=== PATIENT | female | born 1960 | race Caucasian/White ===

== ENCOUNTER 2020-04-13 12:48 | Outpatient (CLI) | payer SELFPAY ==
--- NOTE | 2020-04-13 12:54 | CT_ITS ---
WS: [id number] LDCT LUNG CANCER SCREENING TECHNIQUE: Noncontrast CT of the chest with coronal and sagittal reformatted images. CLINICAL INFORMATION: H/O TOBACCO USE COMPARISON: None. DLP: 48.91 mGy.cm DIvol: 1.[address] scans at [facility] use at least one of these dose optimization techniques: automat ed exposure control; mA and/or kV adjustment per patient size (includes targeted exams where dose is matched to clinical indication); or iterative reconstruction. FINDINGS: No acute pulmonary infiltrates. No consolidation or pleural fluid. A few calcified granulomas. No lance picious pulmonary parenchymal opacities. No mediastinal or hilar lymphadenopathy. Calcified subcarina l and left hilar lymph nodes. Adrenal glands are normal. Splenic granulomas. CT/CT lung screening [id number] IMPRESSION: LUNG-RADS: 1-Negative FOLLOW UP: 12 Month: Continue annual screening with LDCT
== END 2020-04-13 12:49 | disposition home or self-care (01) ==
LOC: CT 12:49
PROVIDERS: PCP Family Medicine; Visit Provider Internal Medicine Pulmonary Disease
DX: Z12.2 Encounter for screening for malignant neoplasm of respiratory organs (principal); Z87.891 Personal history of nicotine dependence
CPT/HCPCS: G0297

== ENCOUNTER 2021-02-26 08:27 | Outpatient (CLI) | payer MEDICAID, SELFPAY ==
--- NOTE | 2021-02-26 08:45 | USCV_ITS ---
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
== END 2021-02-26 08:28 | disposition home or self-care (01) ==
LOC: US 08:31
PROVIDERS: PCP Family Medicine; Visit Provider Internal Medicine Cardiovascular Disease
DX: I77.9 Disorder of arteries and arterioles, unspecified (principal); I73.9 Peripheral vascular disease, unspecified
CPT/HCPCS: 93923

== ENCOUNTER 2021-03-01 14:23 | Outpatient (CLI) | payer MEDICAID, SELFPAY ==
--- NOTE | 2021-03-01 14:44 | XR_ITS ---
WS: [id number] KUB, AP view, 03/01/2021 Clinical Data: LEFT FLANK PAIN Comparison: None. Findings: No abnormal intraabdominal masses are seen. There is no dilatated small bowel or evidence of obstruct ion. There are splenic granulomas. Colon gas and fecal material obscure detail over both kidneys. There ar e phleboliths in the true pelvis. XR/XR KUB [id number] Impression: Negative KUB.
== END 2021-03-01 14:24 | disposition home or self-care (01) ==
LOC: RAD 14:30
PROVIDERS: PCP Nurse Practitioner Family; Visit Provider Nurse Practitioner Family
DX: R10.9 Unspecified abdominal pain (principal)
CPT/HCPCS: 74018

== ENCOUNTER 2021-03-27 15:21 | Emergency (ER) | payer MEDICAID, SELFPAY ==
[2021-03-27 15:48] VITALS: BP 132/80; PULSE 98; RESP 15; TEMP 37.4; O2SAT 95; BMI 29.2
--- NOTE | 2021-03-27 18:12 | XRR_ITS ---
PROCEDURE INFORMATION: Exam: XR Chest Exam date and time: 03/27/2021 6:12 PM Age: 60 years old Clinical indication: Cough and fever; Additional info: Cough, fever, body aches TECHNIQUE: Imaging protocol: XR of the chest. Views: 1 view. COMPARISON: CR Chest 1 [place] [id number] 01/11/2017 3:21 PM FINDINGS: Lungs: Hazy left basilar opacity which could be secondary to atelectasis or pneumonia. Pleural spaces: Unremarkable. No pleural effusion. No pneumothorax. Heart/Mediastinum: Unremarkable. No cardiomegaly. Bones/joints: Unremarkable. XR/XR chest 1V portable [id number] IMPRESSION: Hazy left basilar opacity concerning for pneumonia.
--- NOTE | 2021-03-27 18:47 | W.ED.COVID ---
HPI - COVID General: Chief Complaint: COVID symptoms Stated Complaint: covid symptoms Time Seen by Provider: 03/27/21 17:20 Source: patient Mode of arrival: EMS Limitations: no limitations Triage information: Has fever, cough or shortness of breath. Exposure to COVID + person last 14 days History of Present Illness: HPI Narrative: This 60-year-old female presents to the emergency department with 2-week history of Covid symptoms. She has a history of coronary artery disease and hypertension. She had a Covid exposure prior to her symptoms starting. She has had a fever, body aches, generalized weakness and malaise. She is here to be evaluated. MD complaint: reported COVID exposure and has COVID symptoms Prior covid testing: no COVID 19 common symptoms: positive fever(s), chills, cough, productive cough, dyspnea, fatigue, body aches, nasal congestion and chest tightness; negative headache(s), loss of sense of smell and/or taste, throat pain, nausea, vomiting or diarrhea COVID 19 other sytmptoms: positive chest pressure; negative pleuritic pain, requiring oxygen, requiring more oxygen, respiratory distress, cyanosis, lethargy, confusion or new neurological complaints Onset (ago): week(s) (2) Severity: moderate Pertinent comorbid conditions: hypertension and heart disease Treatment prior to arrival: none COVID Results: SARS-CoV-2 Antigen (Rapid) Positive (Negative) H 03/27/21 19:20 03/27/21 Nasal/Oral Coronavirus 2019 PCR Pending 03/27/21 19:20 03/27/21 Review of Systems General: Reports: 10 or more systems reviewed and unremarkable except in HPI and below Const: Reports: fever(s), chills, body aches and fatigue ENMT: Reports: nasal congestion; Denies: throat pain Resp: Reports: dyspnea and productive cough GI: Denies: nausea, vomiting or diarrhea Neuro: Denies: headache(s) or confusion PFS ED PFSH: Medical History (Updated 03/27/21 @ 21:01 by Kavitha Yun MD, [facility] [place]) CAD (coronary artery disease) Diastolic heart failure Fibromyalgia HTN (hypertension) Hyperlipidemia Shortness of breath Family History (Reviewed 03/27/21 @ 18:54 by Kavitha Yun MD, [facility] [place]) Mother Cancer Other Heart disease Hodgkins disease Hypertension Social History (Reviewed 03/27/21 @ 18:54 by Kavitha Yun MD, [facility] [place]) Smoking and tobacco status: former smoker Quit status (tobacco): has quit using tobacco Year quit tobacco: 2005 - 2PPD x 30 Years Second hand smoke exposure: No Alcohol intake: never Lives independently: Yes Household members: significant other Marital status: Life Partner Current occupational status: unemployed History of recent travel: No Current gender identity: Female Physical Exam Const: COMMON NORMALS: no acute distress, average body habitus, patient oriented x3, no limitations, healthy appearing, alert and well nourished HENMT: COMMON NORMALS: normocephalic, atraumatic and moist oral mucous membranes HEAD & SCALP: normocephalic and atraumatic Neck/C-Spine: COMMON NORMALS: no meningeal signs and no JVD Chest: COMMONS NORMALS: normal inspection of the chest and normal palpation of entire chest wall Resp: COMMON NORMALS: normal respiratory effort, No retractions, No use of accessory muscles, clear to auscultation bilaterally and percussion normal AUSCULTATION: clear to auscultation bilaterally PERCUSSION: percussion normal Cardio: COMMON NORMALS: no JVD, regular rate, regular rhythm, S1 normal heart sound present, S2 normal heart sound present, No gallops present (Cardio), No clicks present (Cardio), No murmurs present (Cardio), No rub (Cardio) and Peripheral pulses 2+ throughout RATE: regular rate RHYTHM: regular rhythm HEART SOUNDS: S1 normal heart sound present and S2 normal heart sound present PERIPHERAL PULSES: Peripheral pulses 2+ throughout GI: COMMON NORMALS: Normal to inspection, nondistended, normoactive bowel sounds present, Soft to palpation, non-tender, No hepatosplenomegaly present, no masses and no bruits PALPATION: Yes Soft to palpation and Yes No hepatosplenomegaly present Extremity: COMMON NORMALS: normal to inspection, full ROM, capillary refill normal, no calf tenderness and no pedal edema Neuro: COMMON NORMALS: patient oriented x3 SENSORIUM/ORIENTATION: Yes alert MENINGEAL SIGNS: Yes no meningeal signs Skin: COMMON NORMALS: no rashes or lesions noted, no wounds, turgor normal, no jaundice, no petechiae and no mottling GENERAL SKIN EXAM: no rashes or lesions noted and turgor normal Course Reevaluation(s): Reevaluation #1: Discussed her lab and imaging findings with her. She tested positive for COVID-19. Chest x-ray also shows Covid pneumonia. She is not hypoxic and not requiring oxygen. Because her symptoms has been going on for about 2 weeks she does not meet criteria for monoclonal antibody infusion. She is given a dose of dexamethasone in the emergency department and discharged home with the same. She is to follow-up with her primary care provider. She voiced understanding and is in agreement with the plan. Time: 21:00 Vital Signs: Vital signs: Vital Signs Temperature 99.3 F 03/27/21 15:48 Pulse Rate 98 03/27/21 15:48 Respiratory Rate 15 03/27/21 15:48 Blood Pressure 132/80 03/27/21 15:48 Pulse Oximetry 95 03/27/21 15:48 MDM - COVID MDM Narrative: Medical decision making narrative: 60-year-old female who presents to the emergency department with a 2-week history of Covid symptoms. She had a Covid exposure. In the emergency department she tested positive for Covid. She is not hypoxic and not requiring oxygen. She is however out of the window for monoclonal antibody infusion. She is discharged home with a prescription for steroid and antibiotics. Medical Records: Attestation: I reviewed the patient's medical records. Lab Data: Attestation: I reviewed the patient's lab results. Labs: Lab Results 03/27/21 03/27/21 03/27/21 Range/Units 19:20 19:35 19:35 WBC 5.2 (4.0-10.0) 10^3/ uL RBC 4.46 (4.1-5.3) 10^6/u L Hgb 13.9 (11.5-15.3) g/dL Hct 42.6 (37.0-47.0) % MCV 95.5 (81-99) fL MCH 31.2 (28.0-34.0) pg MCHC 32.6 (30.0-36.0) g/dL RDW 12.9 (12.1-15.1) % Plt Count 172 (130-400) 10^3/c mm MPV 11.5 H (7.4-10.4) fL Neut % (Auto) 61.1 % Lymph % (Auto) 30.4 % Harney % (Auto) 7.5 % Eos % (Auto) 0.0 % Baso % (Auto) 0.4 % Neut # (Auto) 3.16 (1.8-7.7) 10^3/u L Lymph # (Auto) 1.6 (0.8-4.8) 10^3/u L Harney # (Auto) 0.4 (0.2-0.9) 10^3/u L Eos # (Auto) 0.0 (0.0-0.8) 10^3/u L Baso # (Auto) 0.0 (0.0-0.1) 10^3/u L Nucleated RBC % (a uto) 0 % Nucleated RBCs # 0.0 /100WBC Fibrinogen 508 H (174-498) mg/dL D-Dimer 0.51 (0-0.59) ug/mIFE U Sodium (136-145) mmol/L Potassium (3.5-5.1) mmol/L Chloride (98-107) mmol/L Carbon Dioxide (22-29) mmol/L Anion Gap (5-19) BUN (8-23) mg/dL Creatinine (0.5-0.9) mg/dL GFR Calculation (90-130) mL/min Glucose (65-115) mg/dL Calculated Osmolal ity (285-295) mOsm/k g Lactic Acid (0.5-2.2) mmol/L Calcium (8.5-10.5) mg/dL Total Bilirubin (0.15-1.2) mg/dL AST (0-32) U/L ALT (0-33) U/L Alkaline Phosphata se (35-105) IU/L Lactate Dehydrogen ase (135-214) U/L Creatine Kinase (26-192) U/L Troponin T Gen 5 n g/L (0-10) ng/L C-Reactive Protein (0.0-4.9) mg/L NT-Pro-B Natriuret Pep (0-125) pg/mL Total Protein (6.6-8.7) g/dL Albumin (3.5-5.2) g/dL Globulin (1.3-4.6) g/dL Procalcitonin (0-0.5) ng/mL SARS-CoV-2 Ag (Rap id) Positive H (Negative) 03/27/21 03/27/21 03/27/21 Range/Units 19:35 19:35 19:35 WBC (4.0-10.0) 10^3/ uL RBC (4.1-5.3) 10^6/u L Hgb (11.5-15.3) g/dL Hct (37.0-47.0) % MCV (81-99) fL MCH (28.0-34.0) pg MCHC (30.0-36.0) g/dL RDW (12.1-15.1) % Plt Count (130-400) 10^3/c mm MPV (7.4-10.4) fL Neut % (Auto) % Lymph % (Auto) % Harney % (Auto) % Eos % (Auto) % Baso % (Auto) % Neut # (Auto) (1.8-7.7) 10^3/u L Lymph # (Auto) (0.8-4.8) 10^3/u L Harney # (Auto) (0.2-0.9) 10^3/u L Eos # (Auto) (0.0-0.8) 10^3/u L Baso # (Auto) (0.0-0.1) 10^3/u L Nucleated RBC % (a uto) % Nucleated RBCs # /100WBC Fibrinogen (174-498) mg/dL D-Dimer (0-0.59) ug/mIFE U Sodium 141 (136-145) mmol/L Potassium 3.7 (3.5-5.1) mmol/L Chloride 103 (98-107) mmol/L Carbon Dioxide 22 (22-29) mmol/L Anion Gap 19.7 H (5-19) BUN 6 L (8-23) mg/dL Creatinine 0.5 (0.5-0.9) mg/dL GFR Calculation 125.9 (90-130) mL/min Glucose 94 (65-115) mg/dL Calculated Osmolal ity 289 (285-295) mOsm/k g Lactic Acid 1.2 (0.5-2.2) mmol/L Calcium 8.6 (8.5-10.5) mg/dL Total Bilirubin 0.4 (0.15-1.2) mg/dL AST 45 H (0-32) U/L ALT 27 (0-33) U/L Alkaline Phosphata se 82 (35-105) IU/L Lactate Dehydrogen ase 293 H (135-214) U/L Creatine Kinase 92 (26-192) U/L Troponin T Gen 5 n g/L 7 (0-10) ng/L C-Reactive Protein 16.5 H (0.0-4.9) mg/L NT-Pro-B Natriuret Pep 97 (0-125) pg/mL Total Protein 6.8 (6.6-8.7) g/dL Albumin 4.3 (3.5-5.2) g/dL Globulin 2.5 (1.3-4.6) g/dL Procalcitonin 0.06 (0-0.5) ng/mL SARS-CoV-2 Ag (Rap id) (Negative) Imaging Data: CXR: Attestation: I personally reviewed and interpreted this imaging study as follows: Radiologist's impression: [address] [id number] ReportSigned Patient: Agnes Kat #: [id number]: 1960[facility][id number]/Sex: 60 / FADM Date: 03/27/21Loc: ERRoom/Bed:Attending Dr: Ordering Provider/Ordering MD: Kavitha Yun MD, [facility] [place] Date of Service: 03/27/21 Procedure(s): XR chest 1V portable [id number] Accession Number(s): [id number] Report Number: [id number] PROCEDURE INFORMATION: Exam: XR Chest Exam date and time: 03/27/2021 6:12 PM Age: 60 years old Clinical indication: Cough and fever; Additional info: Cough, fever, body aches TECHNIQUE: Imaging protocol: XR of the chest. Views: 1 view. COMPARISON: CR Chest 1 [place] [id number] 01/11/2017 3:21 PM FINDINGS: Lungs: Hazy left basilar opacity which could be secondary to atelectasis or pneumonia. Pleural spaces: Unremarkable. No pleural effusion. No pneumothorax. Heart/Mediastinum: Unremarkable. No cardiomegaly. Bones/joints: Unremarkable. XR/XR chest 1V portable [id number] IMPRESSION: Hazy left basilar opacity concerning for pneumonia. Dictated By:Heidi Hair By:Heidi Hair Date/Time:03/27/21 2300DD/ EKG Data: EKG 1: Attestation: I personally reviewed and interpreted this EKG as follows: EKG interpretation date: 03/27/21 EKG interpretation time: 20:23 Prior EKG tracings: not available for review Interpretation: Sinus rhythm. Heart rates 93 bpm. Incomplete right bundle branch block. No ST changes. COVID Results: SARS-CoV-2 Antigen (Rapid) Positive (Negative) H 03/27/21 19:20 03/27/21 Nasal/Oral Coronavirus 2019 PCR Pending 03/27/21 19:20 03/27/21 Monoclonal Antibody - ED Inclusion/Exclusion Criteria age >/= 12 years, weight >/= 40kg /88lbs, symptom onset >10 day ago [ineligible] and + direct Sars-Cov-2 test less than 7-10 days ago obesity (BMI >25 or 85%til for age) and cardiovascular disease or htn not requiring hospitalization and not requiring oxygen (if not chronically on oxygen) Plan for treatment Does not meet criteria (DO NOT GIVE) Discharge Plan Discharge Patient Disposition: Home Clinical Impression: Pneumonia due to 2019 novel coronavirus Condition: Stable Prescriptions: New dexamethasone 6 mg tablet 6 mg PO DAILY Qty: 7 RF: 0 azithromycin 250 mg tablet See Rx Instructions .ROUTE .COMPLEX Qty: 6 RF: 0 Continued aspirin [Adult Low Dose Aspirin] 81 mg tablet,delayed release (DR/EC) 81 mg PO DAILY RF: 0 Adult 50 Plus Probiotic 4 billion cell capsule 4,000 mmu cells PO DAILY RF: 0 pantoprazole 40 mg tablet,delayed release (DR/EC) 40 mg PO DAILY Qty: 90 RF: 3 metoprolol succinate 25 mg tablet extended release 24 hr 25 mg PO DAILY Qty: 90 RF: 3 clopidogrel [Plavix] 75 mg tablet 75 mg PO DAILY 90 Days Qty: 90 RF: 3 losartan 50 mg tablet 75 mg PO BID Qty: 270 RF: 3 furosemide 20 mg tablet 20 mg PO DAILY Qty: 90 RF: 3 potassium chloride 10 mEq tablet extended release 10 meq PO DAILY Qty: 90 RF: 3 simvastatin 40 mg tablet 40 mg PO DAILY Qty: 90 RF: 3 Discharge Orders: Discharge ED (Routine); Ordered 03/27/21 Ordered By: Kavitha Yun Referrals: Angela Kerr [employer]SE ASSOCIATE [Primary Care Provider] - 1-3 days Discharge Diet: Usual diet Discharge Activity: Increase activity as tolerated Patient Instructions: Viral Pneumonia (ED) Activity Restrictions/Additional Instructions: Return for any new or worsening symptoms. Follow-up with your primary care provider via telemedicine within 3 days. Take the steroid and antibiotic as prescribed. Monitor your oxygen levels using the pulse oximeter that was sent home with you. If your oxygen levels drop and stay below 90% then you need to return to be evaluated. Coding Level of Care Code ED Office Engineer for Serena Fwd Exam Comprehensive
--- NOTE | 2021-03-27 18:52 | ECG_ITS ---
[facility] Test Date: 2021-03-27 Pat Name: Agnes Kat Department: Room: Gender: Female Rehab Director: : 1960 Requested By: Kavitha Yun I Order Number: [id number] Vanesa MD: Jessica Novoa M.D. Measurements Intervals [place] Rate: 93 P: 24 [place]: 145 QRS: -6 QRSD: 93 T: 29 QT: 393 QTc: 491 Interpretive Statements SINUS RHYTHM POSSIBLE LEFT ATRIAL ENLARGEMENT [-0.1mV P WAVE IN V1/V2] LOW QRS VOLTAGE IN PRECORDIAL LEADS [QRS DEFLECTION < 1.0 mV IN CHEST LEADS] INCOMPLETE RIGHT BUNDLE BRANCH BLOCK [90+ ms QRS DURATION, TERMINAL R IN V1/V2, 40+ ms S IN I/aVL/V4/V5/V6] WARNING: DATA QUALITY MAY AFFECT INTERPRETATION Compared to ECG 09/14/2018 05:01:06 Incomplete right bundle-branch block now present Electronically Signed On 03-28-2021 7:32:44 CDT by Jessica Novoa M.D. [email or web address]
[2021-03-27 19:38] LABS: Basophils % 0.4 %; Hematocrit 42.6 % (37.0-47.0); Hemoglobin 13.9 g/dL (11.5-15.3); Lymphocytes # 1.6 10^3/uL (0.8-4.8); Lymphocytes % 30.4 %; Mean Corpuscular HGB Conc 32.6 g/dL (30.0-36.0); Mean Corpuscular Hemoglobin 31.2 pg (28.0-34.0); Mean Corpuscular Volume 95.5 fL (81-99); Mean Platelet Volume 11.5 fL (7.4-10.4); Monocytes # 0.4 10^3/uL (0.2-0.9); Monocytes % 7.5 %; Neutrophils # 3.16 10^3/uL (1.8-7.7); Neutrophils % 61.1 %; Nucleated Red Blood Cells % 0 %; Platelet Count 172 10^3/cmm (130-400); Red Blood Count 4.46 10^6/uL (4.1-5.3); Red Cell Distribution Width 12.9 % (12.1-15.1); White Blood Count 5.2 10^3/uL (4.0-10.0)
[2021-03-27] MEDS: ketorolac 30 mg/mL INJ IVP (19:38)
[2021-03-27 20:01] LABS: SARS Covid-2 Antigen Positive (Negative)
[2021-03-27 20:07] LABS: Lactic Sepsis W/Reflex 1.2 mmol/L (0.5-2.2)
[2021-03-27 20:10] LABS: Troponin T (5th) Once 7 ng/L (0-10)
[2021-03-27 20:17] LABS: NT Pro B Type Natriuretic Pept 97 pg/mL (0-125); Procalcitonin 0.06 ng/mL (0-0.5)
[2021-03-27 20:28] LABS: Alanine Aminotransferase 27 U/L (0-33); Albumin Level 4.3 g/dL (3.5-5.2); Alkaline Phosphatase 82 IU/L (35-105); Anion Gap 19.7 (5-19); Aspartate Amino Transferase 45 U/L (0-32); Blood Urea Nitrogen 6 mg/dL (8-23); C Reactive Protein 16.5 mg/L (0.0-4.9); Calcium 8.6 mg/dL (8.5-10.5); Carbon Dioxide 22 mmol/L (22-29); Chloride 103 mmol/L (98-107); Creatine Phosphokinase 92 U/L (26-192); Globulin 2.5 g/dL (1.3-4.6); Glomerular Filtration Rate 125.9 mL/min (90-130); Glucose 94 mg/dL (65-115); Lactate Dehydrogenase 293 U/L (135-214); Osmolality Calculated 289 mOsm/kg (285-295); Potassium 3.7 mmol/L (3.5-5.1); Sodium 141 mmol/L (136-145); Total Bilirubin 0.4 mg/dL (0.15-1.2); Total Protein 6.8 g/dL (6.6-8.7)
[2021-03-27 20:29] LABS: Fibrinogen 508 mg/dL (174-498)
[2021-03-27 20:31] LABS: D Dimer 0.51 ug/mIFEU (0-0.59)
[2021-03-27 21:00] VITALS: BP 138/78; PULSE 91; RESP 22; TEMP 37.4; O2SAT 97
[2021-03-28 15:48] LABS: Coronavirus Test Green County Detected
== END 2021-03-27 21:00 | disposition home or self-care (01) ==
PROVIDERS: Emergency Provider Family Medicine; PCP Nurse Practitioner Family
DX: U07.1 COVID-19 (principal); J12.82 Pneumonia due to coronavirus disease 2019; I11.0 Hypertensive heart disease with heart failure; I50.30 Unspecified diastolic (congestive) heart failure; I25.10 Atherosclerotic heart disease of native coronary artery without angina pectoris; E78.5 Hyperlipidemia, unspecified; Z79.82 Long term (current) use of aspirin; Z87.891 Personal history of nicotine dependence
CPT/HCPCS: 71045; 80053; 82550; 83605; 83615; 83880; 84145; 84484; 85025; 85378; 85384; 86140; 87426; 87635; 93005; J1885

== ENCOUNTER 2021-08-30 10:23 | Outpatient (CLI) | payer MEDICAID, SELFPAY ==
--- NOTE | 2021-08-30 10:33 | XR_ITS ---
WS: [id number] XR knee LT 4V [id number] REASON FOR EXAM: CHRONIC L KNEE PAIN FINDINGS: Mild narrowing of the medial knee joint space with mild tibial subchondral sclerosis. The lateral knee joint space is well preserved. Mild narrowing of the patellofemoral joint space with minimal osteophyte formation from the patella. No soft tissue abnormality. XR/XR knee LT 4V [id number] IMPRESSION: Mild osteoarthritis in the left knee.
== END 2021-08-30 10:24 | disposition home or self-care (01) ==
LOC: RAD 10:28
PROVIDERS: PCP Nurse Practitioner Family; Visit Provider Nurse Practitioner Family
DX: M17.12 Unilateral primary osteoarthritis, left knee (principal)
CPT/HCPCS: 73564

== ENCOUNTER → 2021-09-30 10:28 | Outpatient (BNVA) | payer MEDICAID, SELFPAY | PROVIDERS: PCP Nurse Practitioner Family; Referring Provider Nurse Practitioner Family; Visit Provider Specialist | DX: M25.562 Pain in left knee (principal) | CPT/HCPCS: 73560; 73565 ==

== ENCOUNTER 2021-11-04 13:49 | Outpatient (CLI) | payer MEDICAID, SELFPAY ==
--- NOTE | 2021-11-04 14:30 | MR_ITS ---
WS: [id number] MRI LEFT KNEE HISTORY: S83.242A - Other tear of medial meniscus, current injury,... COMPARISON: Radiograph 09/30/2021 Anterior cruciate ligament: Intact. Posterior cruciate ligament: Intact. Medial collateral ligament: Intact. Posterior lateral corner structures: Intact. Medial menisci: Complex tear in the posterior horn. Tear extends to the superior and inferior articul ar surfaces. There is increased signal consistent with synovitis adjacent to the posterior meniscus. Anterior horn is normal. Lateral meniscus: Horizontal tear posterior horn in the posterior third of the meniscus. Tear extends to the inferior articular surface. Extensor mechanism: Distal quadriceps tendon and patellar tendons are intact. Fluid and soft tissue: Very small joint effusion. There is a lobulated cyst adjacent to the posterior medial joint line. Cyst measures 15 x 6 mm meniscal cyst associated with the tear. Ganglion within t he differential. The MCL is intact but slightly displaced. . Tiny Flores's cyst. Osseous and articular structures: Patellofemoral compartment: Normal. Medial compartment: Minimal narrowing of the compartment and fissuring of the cartilage. No full-thic kness defect. No marrow edema. Lateral compartment: Mild narrowing lateral compartment. No marrow edema. There is a small cartilagin ous defect along the tibial plateau but no underlying marrow edema. MR/MR knee LT wo con* [id number] IMPRESSION: 1. Complex tear posterior horn medial meniscus with an adjacent 15 x 6 mm lobu lated meniscal cyst versus ganglion. Meniscal cyst versus ganglion is causing m ild displacement of the MCL. 2. Additional horizontal tear in the outer third posterior horn lateral menisc us. 3. Superficial focal chondromalacia lateral tibial plateau.
== END 2021-11-04 13:50 | disposition home or self-care (01) ==
LOC: RAD 13:51
PROVIDERS: PCP Nurse Practitioner Family; Visit Provider Specialist
DX: S83.232A Complex tear of medial meniscus, current injury, left knee, initial encounter (principal); S83.282A Other tear of lateral meniscus, current injury, left knee, initial encounter; X58.XXXA Exposure to other specified factors, initial encounter; M94.262 Chondromalacia, left knee
CPT/HCPCS: 73721

== ENCOUNTER → 2021-12-04 08:03 | Outpatient (BNVA) | payer MEDICAID, SELFPAY | PROVIDERS: PCP Nurse Practitioner Family; Visit Provider Specialist | DX: S83.232A Complex tear of medial meniscus, current injury, left knee, initial encounter (principal); S83.282A Other tear of lateral meniscus, current injury, left knee, initial encounter; Z87.891 Personal history of nicotine dependence; X58.XXXA Exposure to other specified factors, initial encounter | CPT/HCPCS: 99213 ==

== ENCOUNTER → 2022-01-01 10:02 | Outpatient (BNVA) | payer MEDICAID, SELFPAY | PROVIDERS: PCP Nurse Practitioner Family; Visit Provider Specialist | DX: M25.562 Pain in left knee (principal); S83.282A Other tear of lateral meniscus, current injury, left knee, initial encounter; S83.232A Complex tear of medial meniscus, current injury, left knee, initial encounter; X58.XXXA Exposure to other specified factors, initial encounter | CPT/HCPCS: 99214 ==

== ENCOUNTER 2022-01-10 08:24 | Day surgery (SDC) | payer MEDICAID, SELFPAY ==
[2022-01-09 12:18] VITALS: BMI 31.1
[2022-01-10] VITALS (8 sets, daily range): BP systolic 126–169; BP diastolic 78–114; PULSE 67–83; RESP 14–18; TEMP 36.2–36.9; O2SAT 93–98
[2022-01-10] MEDS: acetaminophen 1,000 MG/100 ML PIGGYBACK 400 MG IV (09:06)
[2022-01-10] MEDS: CELEcoxib 200 mg Capsule 400 MG PO (09:06)
[2022-01-10] MEDS: sodium chloride 0.9% 1,000 ML 30 ML IV (09:07)
--- NOTE | 2022-01-10 09:13 | P.HPUD_ITS ---
Surgery/Procedure H&P Update DATE OF PROCEDURE: January 10, 2022 DATE H&P PERFORMED: 01/01/22 H&P UPDATE INFORMATION: I have reviewed H&P completed within last 30 days, I have examined patient prior to procedure, No changes to prior documentation and H&P is in [facility] EMR on date indicated CHANGES TO PREVIOUS DOCUMENTATION: MRI 10/2021: 1.? Complex tear posterior horn medial meniscus with an adjacent 15 x 6 mm lobulated meniscal cyst versus ganglion. Meniscal cyst versus ganglion is causing mild displacement of the MCL. 2.? Additional horizontal tear in the outer third posterior horn lateral meniscus. 3. ? Superficial focal chondromalacia lateral tibial plateau. PREOP DIAGNOSIS: Left knee medial and lateral meniscus tear PLANNED PROCEDURE: Operation Date: 01/10/22 09:50 Proposed Procedures p Knee Arthroscopy with debridement 17595/M17.10(Left) - Purnima Maddox MD
--- NOTE | 2022-01-10 09:30 | ANES.PREANE2 ---
Pre-Anesthetic Assessment Height/Weight: Height 1.57 m Weight 77.111 kg Temp Pulse Resp BP Pulse Ox 98.4 F 77 18 169/114 98 01/10/22 08:57 01/10/22 08:57 01/10/22 08:57 01/10/22 08:57 01/10/22 08:57 Preop Diagnosis: Left knee medial and lateral meniscus tear Operation Date: 01/10/22 09:50 Proposed Procedures p Knee Arthroscopy with debridement 15786/M17.10(Left) - Purnima Maddox MD Familial anesthetic complications: None Was Beta Amos taken within 24 hours: Yes Was Clonidine taken within 24 hours: N/A Last intake: Intake Last Liquid Date 01/09/22 Last Liquid Time 22:00 Last Solid Date 01/09/22 Last Solid Time 15:00 Social No alcohol and No tobacco Exam alert, oriented x 3, clear to auscultation bilaterally and regular rate & rhythm Airway Submandibular: Other (Limited ) Cervical ROM: within normal limits Mallampati: Class II Dentition: false Pulmonary Exertional Dyspnea CV/HEM Coronary Artery Disease (s/p coronary stents ), Congestive Heart Failure and Hypertension METS < 4 None reported Hepatic None reported GI Gastroesophageal Reflux Disease Metabolic None reported Musc/skel Fibromyalgia and Osteoarthritis/DJD Tear of left meniscus Neuropsych None reported Anesthetic Plan ASA status: 3 Anesthesia: Anesthesia Evaluation Other: We discussed risk and benefits of general anesthesia including PONV, sore throat (sometimes severe), corneal abrasion, positioning and peripheral nerve injuries, life threatening allergic reaction, post operative ICU admission requiring prolonged intubation, stroke, heart attack, , and rare incidences of recall. Patient consents to proceed with general anesthesia. Patient declined block pre op. Risk of > 500 ml blood loss (7ml/kg in children): No Medications/Allergies Home Medications Medication Instructions Recorded Confirmed Last Taken Type aspirin 81 mg tablet,delayed 81 mg PO DAILY 12/19/19 01/10/22 01/09/22 History release (Adult Low Dose Aspirin) furosemide 20 mg tablet 20 mg PO DAILY #90 tab 01/04/21 01/10/22 01/09/22 Rx losartan 50 mg tablet 75 mg PO BID #270 tab 01/04/21 01/10/22 01/09/22 Rx potassium chloride 10 mEq 10 meq PO DAILY #90 tab 01/04/21 01/10/22 01/09/22 Rx tablet,extended release simvastatin 80 mg tablet 80 mg PO DAILY #90 tab 05/31/21 01/10/22 01/09/22 Rx biotin 2,500 mcg capsule 5 mg PO DAILY cap 06/03/21 01/09/22 Unknown History multivitamin 1 tab PO DAILY 06/03/21 01/09/22 Unknown History ascorbate calcium (vitamin C) 500 500 mg PO DAILY 09/30/21 01/09/22 Unknown History mg tablet zinc 50 mg tablet 50 mg PO DAILY 09/30/21 01/10/22 01/09/22 History clopidogrel 75 mg tablet (Plavix) 75 mg PO DAILY 90 Days #90 tab 10/11/21 01/09/22 01/01/22 Rx metoprolol succinate 25 mg 25 mg PO DAILY #90 tab 10/23/21 01/10/22 01/10/22 06:30 Rx tablet,extended release 24 hr pantoprazole 40 mg tablet,delayed 40 mg PO DAILY #90 tab 11/11/21 01/10/22 01/09/22 Rx release cholecalciferol (vitamin D3) 25 25 mcg PO DAILY 12/04/21 01/09/22 Unknown History mcg (1,000 unit) capsule Allergies Allergy/AdvReac Type Severity Reaction Status Date / Time shellfish derived Allergy Unknown Unknown Verified 01/09/22 12:15 iodine AdvReac Unknown ALGY-Hives Verified 01/09/22 12:15 Current Medications Generic Name Dose Route Start Last Admin Trade Name Freq PRN Reason Stop Dose Admin Sodium Chloride 1,000 mls @ 30 mls/hr 01/10/22 08:45 01/10/22 09:07 Sodium Chloride 0.9% IV 01/11/22 08:44 30 mls/hr .Q24H OMI Administration PFSH Anesthesia Medical History CAD (coronary artery disease) Diastolic heart failure Fibromyalgia HTN (hypertension) Hyperlipidemia Shortness of breath Family History Mother Cancer Other Heart disease Hodgkins disease Hypertension Social History Smoking and tobacco status: former smoker Quit status (tobacco): has quit using tobacco Year quit tobacco: 2005 - 2PPD x 30 Years Second hand smoke exposure: No Alcohol intake: never Lives independently: Yes Household members: significant other Marital status: Life Partner Current occupational status: unemployed History of recent travel: No Current gender identity: Female Data Anesthesia : 01/10/22 09:00 Cardiac Studies: No Data to Display
[2022-01-10] MEDS: scopolamine 1.5 Patch 1 PATCH TRANSDERMA (09:31)
[2022-01-10 09:40] LABS: Anion Gap 16.2 (5-19); Blood Urea Nitrogen 8 mg/dL (8-23); Calcium 9.9 mg/dL (8.5-10.5); Carbon Dioxide 27 mmol/L (22-29); Chloride 104 mmol/L (98-107); Glomerular Filtration Rate 85.1 mL/min (90-130); Glucose 110 mg/dL (65-115); Osmolality Calculated 295 mOsm/kg (285-295); Potassium 4.2 mmol/L (3.5-5.1); Sodium 143 mmol/L (136-145)
[2022-01-10] MEDS: morphine 4 mg/mL SDV 1 mL 8 MG XX (10:38)
--- NOTE | 2022-01-10 11:29 | P.OP_ITS ---
Operative Report Date of procedure: January 10, 2022 Pre-op diagnosis: Left knee medial and lateral meniscus tears Post-op diagnosis: Left knee medial and lateral meniscus tears with medial plica and degenerative osteoarthritic change Procedure done: Left arthroscopic knee surgery with partial medial and lateral meniscectomies, debridement of chondromalacia, and removal of plica Specimens removed/disposition: Arthroscopic debris, disposed Pathology: none sent Surgeon: Purnima Maddox Continuing Education Director: [facility] operating room technicians Anesthesia: General (Intubated, ASA 3) Estimated blood loss (mL): 10 Tourniquet time (min): 45 (At 250 mmHg) IV fluids (mL): 800 Urine output (mL): 0 (No Remy) Complications: None Findings: Degenerative osteoarthritis with medial and lateral meniscal tears and medial plica Condition: stable Disposition: PACU (Then return to same-day surgery for discharge home) Brief History: This is an established 61 year old female patient who presented with complaints of significant left knee pain, primarily medially. MRI confirmed medial meniscal tear, and after discussion, the patient wished to proceed with arthroscopic intervention. Patient has increased pain to the posterior knee with squatting movements. Patient has some giving way of her knee and weakness at time. Patient is currently taking tylenol PM at night for the pain. Surgical intervention was discussed, consents were signed. Questions were answered. Procedure: Patient was brought to the operating theater and after undergoing adequate general intubated anesthesia, ASA 3, the patient's left lower extremity was prepped and draped in usual fashion utilizing DuraPrep. A tourniquet was placed high on the leg prior to prepping and draping. The tourniquet was elevated prior to commencement of the surgical procedure to 250 mmHg. Total tourniquet time was 45 minutes. Elevation followed prepping and exsanguination. Prior to commencement of the surgical procedure, a surgical pause was performed. At the time of the surgical pause, we identified the site and side of surgery. We also confirmed the patient's identity and appropriate and timely administration of preoperative antibiotics. Preoperative surgical markings were also visualized at this time. Standard arthroscopic portals were utilized including superolateral, inferomedial, and inferolateral portals. The examination commenced in the suprapatellar pouch area where the patient was noted to have chondromalacia of the patella and trochlear groove, but this was noted to be minimal. There was also a medial plica impinging upon the medial femoral condyle which was easily visualized. The arthroscope was then passed in the medial compartment where there was noted to be tearing of the posterior horn of the medial meniscus. The arthroscope was then passed across the notch area where anterior cruciate ligament was visualized and found to be intact. The scope was passed into the lateral compartment with the knee in a [id number] position. Lateral meniscus was noted to have significant degenerative tearing, but palpation of the meniscus did not demonstrate displacement into the joint. The inner rim of the meniscus was addressed with a combination of the intra-articular shaver, basket forceps, and the intra-articular heat wand. Once lateral meniscus had been thus prepared it was again palpated and found to be intact and not displaceable into the knee joint. Scope was then returned to the medial compartment where debridement was accomplished of the medial meniscal tear which involved the posterior third of the meniscus. This was addressed with a shaver, basket forceps, and the intra-articular heat wand. Once the meniscus had been addressed, it was palpated and found to be not displaceable into the knee joint. The arthroscope was then returned to the patellofemoral joint where the arthroscopic shaver was used to resect the plica. Once the patellofemoral compartment had been addressed, the scope was passed back through the knee compartments to evaluate for other abnormalities. Finding none, attention was directed to closure. The knee was copiously irrigated and suctioned dry. Following this, each portal was closed with a simple suture followed by Dermabond and OpSite. Additionally, the knee was injected with 20 mL of half percent ropivacaine and 8 mg of morphine. Additional injections were placed about the portals. Sterile dressing was placed consisting of the the OpSite as noted above followed by soft roll andAce wrap. Patient was returned to Recovery Room in satisfactory condition where she will be discharged home to follow-up with me in the office as scheduled. There were no complications and no specimens. Related Problem List Diagnoses (1) Tear of lateral meniscus of left knee: (2) Tear of medial meniscus of left knee: (3) Synovial plica of left knee:
--- NOTE | 2022-01-10 12:27 | SUR.PHASEII ---
patient states she has pain in her left knee which is not unbearable. patient states she does not like taking pain medications and does not want anything for pain at this time.
--- NOTE | 2022-01-10 15:03 | ANE.PACU2 ---
Inpatient post-anesthesia follow up: Airway intact: Yes Vital signs: Temperature 97.5 F Pulse Rate 77 Respiratory Rate 15 Blood Pressure 146/91 Pulse Oximetry 94 Oxygen Delivery Me thod Room Air Oxygen Flow Rate 6 Fraction of Inspir ed Oxygen Hydration adequate: Yes Nausea and vomiting: No Pain level: 6 Mental status: Baseline
== END 2022-01-10 12:50 | disposition home or self-care (01) ==
PROVIDERS: Anesthesiology; PCP Nurse Practitioner Family; Visit Provider Specialist
PROC: (CPT 29870; principal; 2022-01-10 09:40)
DX: S83.282A Other tear of lateral meniscus, current injury, left knee, initial encounter (principal); S83.232A Complex tear of medial meniscus, current injury, left knee, initial encounter; M67.52 Plica syndrome, left knee; I25.10 Atherosclerotic heart disease of native coronary artery without angina pectoris; Z95.5 Presence of coronary angioplasty implant and graft; I11.0 Hypertensive heart disease with heart failure; I50.9 Heart failure, unspecified; K21.9 Gastro-esophageal reflux disease without esophagitis; M79.7 Fibromyalgia; Z79.82 Long term (current) use of aspirin; Z87.891 Personal history of nicotine dependence; X58.XXXA Exposure to other specified factors, initial encounter
CPT/HCPCS: 29880; 80048; J1200; J2250; J2270; J2405; J2704; J2795; J3010; J7030

== ENCOUNTER 2022-01-27 14:37 | Outpatient (CLI) | payer MEDICAID, SELFPAY ==
--- NOTE | 2022-01-27 14:45 | USCV_ITS ---
Agnes Kat Age: 61 Gender: F : 1960 Exam Date: 01/27/2022 15:48 Ordering Phys: Purnima Maddox MD Technologist: ANA ROSA [place] [facility] [place]: Pain HISTORY: Lower extremity pain. 3 weeks post op left knee surgery PROCEDURES: Venous duplex imaging was performed in only the left lower extremity. The following venous structures were evaluated: common femoral vein, profunda vein, proximal portion of the greater saphenous vein, superficial femoral vein, and the popliteal vein. In addition, the posterior tibial and peroneal trunk were evaluated. FINDINGS: Normal 2-D Doppler and augmentation and compressibility throughout the lower extremity venous structures. Additional imaging through the proximal calf veins also reveals no thrombus. Limited evaluation of the greater saphenous vein is patent with no thrombus. Simple fluid collection posterior medial knee, suspect small Flores's cyst. CONCLUSIONS No DVT left lower extremity. Dr. Essence Freire DO (Electronically Signed) Final Date: 27 January 2022 16:24 S
== END 2022-01-27 14:38 | disposition home or self-care (01) ==
LOC: RAD 14:39
PROVIDERS: PCP Nurse Practitioner Family; Visit Provider Specialist
DX: Z98.890 Other specified postprocedural states (principal); M79.605 Pain in left leg
CPT/HCPCS: 93971

== ENCOUNTER → 2022-01-28 13:56 | Outpatient (BNVA) | payer MEDICAID, SELFPAY | PROVIDERS: PCP Nurse Practitioner Family; Visit Provider Internal Medicine | DX: I25.110 Atherosclerotic heart disease of native coronary artery with unstable angina pectoris (principal); I11.0 Hypertensive heart disease with heart failure; I50.32 Chronic diastolic (congestive) heart failure; Z86.16 Personal history of COVID-19; Z87.891 Personal history of nicotine dependence | CPT/HCPCS: 99214 ==

== ENCOUNTER → 2022-02-26 07:51 | Outpatient (BNVA) | payer MEDICAID, SELFPAY | PROVIDERS: PCP Nurse Practitioner Family; Visit Provider Nurse Practitioner Family | DX: Z48.89 Encounter for other specified surgical aftercare (principal); M67.52 Plica syndrome, left knee; S83.282A Other tear of lateral meniscus, current injury, left knee, initial encounter; S83.242A Other tear of medial meniscus, current injury, left knee, initial encounter; X58.XXXA Exposure to other specified factors, initial encounter | CPT/HCPCS: 73560; 73565; 99214 ==

== ENCOUNTER → 2022-05-14 16:58 | Outpatient (BNVA) | payer MEDICAID, SELFPAY | PROVIDERS: PCP Nurse Practitioner Family; Visit Provider Internal Medicine Pulmonary Disease | DX: R06.02 Shortness of breath (principal); Z87.891 Personal history of nicotine dependence | CPT/HCPCS: 36415; 82785; 85025; 86003 ==

== ENCOUNTER 2022-06-18 07:23 | Outpatient (CLI) | payer MEDICAID, SELFPAY | END 2022-06-18 07:24 | disposition home or self-care (01) | PROVIDERS: PCP Nurse Practitioner Family; Visit Provider Internal Medicine Pulmonary Disease | DX: R06.02 Shortness of breath (principal) | CPT/HCPCS: 94010; 94618; 94726; 94729 ==

== ENCOUNTER 2022-07-11 08:12 | Outpatient (CLI) | payer MEDICAID, SELFPAY ==
--- NOTE | 2022-07-11 08:30 | CT_ITS ---
WS: [id number] CT CHEST TECHNIQUE: Noncontrast CT of the chest with coronal and sagittal reformatted images. CLINICAL INFORMATION: CONTINUED SOB AFTER ON VENT WITH COVID 1 YR AGO COMPARISON: CT April 13, 2020 DLP: 721.[address] scans at [facility] use at least one of these dose optimization techniques: automated e xposure control; mA and/or kV adjustment per patient size (includes targeted exams where dose is matc hed to clinical indication); or iterative reconstruction. FINDINGS: Both lungs are well aerated. Moderate chronic emphysematous changes. No acute pulmonary infiltrates. No evidence of subpleural honeycombing. A few hazy reticular opacities in the subpleural upper and lo wer lobes. Calcified granuloma LEFT lower lobe. Otherwise no suspicious pulmonary parenchymal opaciti es. Aortic calcification. Coronary calcification. Calcified subcarinal and LEFT hilar lymph nodes. No med iastinal or hilar lymphadenopathy. No axillary lymphadenopathy. Small esophageal hiatal hernia. Splen ic granulomas. Adrenal glands are normal. Mild thoracic kyphosis. Disc space narrowing in the mid tho racic spine. CT/CT chest wo con [id number] IMPRESSION: 1. Moderate chronic emphysematous changes. No acute pulmonary infiltrates. 2. No evidence of subpleural honeycombing. 3. A few hazy reticular opacities in the bilateral peripheral upper and lower lobes. 4. No mediastinal or hilar lymphadenopathy. 5. Small esophageal hiatal hernia. 6. Aortic and coronary calcification.
== END 2022-07-11 08:13 | disposition home or self-care (01) ==
LOC: RAD 08:13
PROVIDERS: PCP Nurse Practitioner Family; Visit Provider Internal Medicine Pulmonary Disease
DX: Z87.891 Personal history of nicotine dependence (principal); R06.09 Other forms of dyspnea; U09.9 Post COVID-19 condition, unspecified; K44.9 Diaphragmatic hernia without obstruction or gangrene; I70.0 Atherosclerosis of aorta; I25.10 Atherosclerotic heart disease of native coronary artery without angina pectoris
CPT/HCPCS: 71250

== ENCOUNTER 2022-08-16 10:41 | Emergency (ER) | payer MEDICAID, SELFPAY ==
--- NOTE | 2022-08-16 10:43 | ED_ITS ---
HPI - Chest Pain General: Chief Complaint: Chest Pain Stated Complaint: Chest Pain Time Seen by Provider: 08/16/22 10:43 Source: patient Mode of arrival: ambulatory History of Present Illness: 61-year-old male who presents to the emergency room with complaint of left-sided chest pain and her back and her arm. She not had any nausea or vomiting. She has a little bit of a low-grade fever. She some abdominal discomfort as well. Nausea without vomiting. Nonproductive cough. She does have some pain in the epigastrium as well radiating to the right upper quadrant. MD complaint: chest pain Onset (ago): hour(s) Timing of current episode: episodic Onset: during rest Pain radiation: left arm Severity: mild Associated symptoms: Reports abdominal pain, dyspnea and fever(s); Deny nausea or vomiting Review of Systems Const: Reports: fever(s), chills and body aches; Denies: change in appetite, fatigue or malaise ENMT: Denies: throat pain, ear or mastoid pain, nasal discharge or nasal congestion Card: Denies: chest pain, edema, dyspnea on exertion or orthopnea Resp: Reports: dyspnea and non-productive cough; Denies: productive cough GI: Reports: abdominal pain; Denies: nausea, vomiting, hematemesis, coffee ground emesis, diarrhea, constipation, bloating, hematochezia or melena : Denies: flank pain, difficulty voiding, dysuria, urinary frequency or urinary urgency Skin/Breast: Denies: rash or pruritus PFSH ED PFSH: Medical History CAD (coronary artery disease) Diastolic heart failure Fibromyalgia HTN (hypertension) Hyperlipidemia Shortness of breath Surgical History H/O section H/O oral surgery Hx of heart artery stent S/P carpal tunnel release S/P hysterectomy Family History Mother Cancer Other Heart disease Hodgkins disease Hypertension Social History Smoking and tobacco status: former smoker Quit status (tobacco): has quit using tobacco Year quit tobacco: 2004 - 2PPD x 30 Years Second hand smoke exposure: No Alcohol intake: never Lives independently: Yes Household members: significant other Marital status: Life Partner Current occupational status: unemployed History of recent travel: No Current gender identity: Female Physical Exam Const: GENERAL APPEARANCE: cooperative and comfortable ORIENTATION/CONSCIOUSNESS: Yes awake, Yes oriented to person, Yes oriented to place and Yes oriented to time HENMT: COMMON NORMALS: normocephalic and atraumatic HEAD & SCALP: normocephalic and atraumatic Resp: COMMON NORMALS: normal respiratory effort, No retractions, No use of accessory muscles and clear to auscultation bilaterally AUSCULTATION: clear to auscultation bilaterally Cardio: COMMON NORMALS: regular rhythm and No murmurs present (Cardio) RATE: tachycardic RHYTHM: regular rhythm GI: COMMON NORMALS: No hepatosplenomegaly present AUSCULTATION: Yes normoactive bowel sounds PALPATION: Yes Tenderness to palpation present (GI) (Negative Estevez sign) Details: RUQ, No Guarding due to palpation present (GI) and Yes No hepatosplenomegaly present Extremity: COMMON NORMALS: normal to inspection, capillary refill normal, no clubbing, cyanosis or edema, no calf tenderness and no pedal edema Neuro: SENSORIUM/ORIENTATION: Yes oriented to person, Yes oriented to place and Yes oriented to time Skin: COMMON NORMALS: no rashes or lesions noted GENERAL SKIN EXAM: no rashes or lesions noted Course Vital Signs: Vital signs: Vital Signs Temperature 100.0 F H 08/16/22 10:46 Pulse Rate 95 08/16/22 16:25 Respiratory Rate 16 08/16/22 16:25 Blood Pressure 132/86 08/16/22 16:25 Pulse Oximetry 97 08/16/22 16:25 Oxygen Delivery Me thod 08/16/22 13:20 MDM - Chest Pain Medical Decision Making Patient atypical type chest pain or cardiac enzymes or EKG unremarkable. She is elevated liver enzymes she has Gabrielle lithiasis without acute cholecystitis at this time. Additionally she had a mild fever here complaint of the cough I suspect that is all due to her influenza, which she also test positive for today. Reviewed the findings with the patient I think some of her symptoms are biliary colic in addition she has some respiratory symptoms but does not appear to have anything related to cardiac at this time. Discharge patient home she declined Tamiflu follow-up with her primary care doctor at a later date she will need referral for further evaluation of her gallbladder if she has recurrent or persistent symptoms Medical Records I reviewed the patient's medical records. Lab Data I reviewed the patient's lab results. 08/16/22 11:02 08/16/22 11:02 Radiology Impressions Chest X-Ray 08/16/22 10:44 IMPRESSION: No acute cardiopulmonary abnormality. Gallbladder Ultrasound 08/16/22 15:04 IMPRESSION: 1. Cholelithiasis, gallbladder sludge. 2. Fatty infiltration of the liver. 3. Limited assessment of the pancreas. Laboratory Results WBC 8.1 10^3/uL (4.0-10.0) 08/16/22 11:02 RBC 5.10 10^6/uL (4.1-5.3) 08/16/22 11:02 Hgb 16.2 g/dL (11.5-15.3) H 08/16/22 11:02 Hct 48.1 % (37.0-47.0) H 08/16/22 11:02 MCV 94.3 fl (81-99) 08/16/22 11:02 MCH 31.8 pg (28.0-34.0) 08/16/22 11:02 MCHC 33.7 g/dL (30.0-36.0) 08/16/22 11:02 RDW 12.6 % (12.1-15.1) 08/16/22 11:02 Plt Count 298 10^3/cmm (130-400) 08/16/22 11:02 MPV 11.4 fL (7.4-10.4) H 08/16/22 11:02 Neut % (Auto) 73.3 % 08/16/22 11:02 Lymph % (Auto) 15.0 % 08/16/22 11:02 [place] % (Auto) 9.7 % 08/16/22 11:02 Eos % (Auto) 0.7 % 08/16/22 11:02 Baso % (Auto) 1.1 % 08/16/22 11:02 Neut # (Auto) 5.89 10^3/uL (1.8-7.7) 08/16/22 11:02 Lymph # (Auto) 1.2 10^3/uL (0.8-4.8) 08/16/22 11:02 [place] # (Auto) 0.8 10^3/uL (0.2-0.9) 08/16/22 11:02 Eos # (Auto) 0.1 10^3/uL (0.0-0.8) 08/16/22 11:02 Baso # (Auto) 0.1 10^3/uL (0.0-0.1) 08/16/22 11:02 Nucleated RBC % (auto) 0 % 08/16/22 11:02 Nucleated RBCs # 0.0 /100WBC 08/16/22 11:02 Sodium 140 mmol/L (136-145) 08/16/22 11:02 Potassium 3.9 mmol/L (3.5-5.1) 08/16/22 11:02 Chloride 101 mmol/L (98-107) 08/16/22 11:02 Carbon Dioxide 26 mmol/L (22-29) 08/16/22 11:02 Anion Gap 16.9 (5-19) 08/16/22 11:02 BUN 5 mg/dL (8-23) L 08/16/22 11:02 Creatinine 0.6 mg/dL (0.5-0.9) 08/16/22 11:02 GFR Calculation 101.6 mL/min (90-130) 08/16/22 11:02 Glucose 161 mg/dL (65-115) H 08/16/22 11:02 Calculated Osmolality 291 mOsm/kg (285-295) 08/16/22 11:02 Calcium 10.1 mg/dL (8.5-10.5) 08/16/22 11:02 Total Bilirubin 0.4 mg/dL (0.15-1.2) 08/16/22 11:02 AST 49 U/L (0-32) H 08/16/22 11:02 ALT 43 U/L (0-33) H 08/16/22 11:02 Alkaline Phosphatase 129 U/L (35-105) H 08/16/22 11:02 Troponin T Baseline 7 ng/L (0-10) 08/16/22 11:02 Troponin T 120 Minute 6.00 ng/L (0-10) 08/16/22 14:03 Delta Troponin T -1.00 ABS# (0-10) L 08/16/22 14:03 Total Protein 7.9 g/dL (6.6-8.7) 08/16/22 11:02 Albumin 5.3 g/dL (3.5-5.2) H 08/16/22 11:02 Globulin 2.6 g/dL (1.3-4.6) 08/16/22 11:02 Nasal Influ A H1 2008 PCR Detected (NOT DETECT) A 08/16/22 15:28 Coronavirus 229E (PCR) Not detected (NOT DETECT) 08/16/22 13:22 Influenza A (H1) PCR Not detected (NOT DETECT) 08/16/22 15:28 Influenza A (H3) PCR Not detected (NOT DETECT) 08/16/22 15:28 Influenza Type A (PCR) Detected (NOT DETECT) A 08/16/22 15:28 Influenza Type B (PCR) Not detected (NOT DETECT) 08/16/22 15:28 SARS-CoV-2 (PCR) Not detected (NOT DETECT) 08/16/22 13:22 Discharge Plan Discharge Patient Disposition: Home Clinical Impression: Biliary colic, GERD (gastroesophageal reflux disease), Influenza A Condition: Stable Prescriptions: New pantoprazole 40 mg tablet,delayed release (DR/EC) 40 mg PO BID 14 Days Qty: 28 0RF No Action ascorbate calcium (vitamin C) 500 mg tablet 500 mg PO DAILY zinc 50 mg tablet 50 mg PO DAILY aspirin [Adult Low Dose Aspirin] 81 mg tablet,delayed release (DR/EC) 81 mg PO DAILY biotin 2,500 mcg capsule 5 mg PO DAILY multivitamin Tablet 1 tab PO DAILY cholecalciferol (vitamin D3) 25 mcg (1,000 unit) capsule 25 mcg PO DAILY albuterol sulfate [Ventolin HFA] 90 mcg/actuation HFA aerosol inhaler 2 inh inhalation QID PRN (Reason: shortness of breath or wheezing) Qty: 8.5 3RF amoxicillin-pot clavulanate [Augmentin] 500-125 mg tablet 1 tab PO BID Qty: 10 0RF simvastatin 80 mg tablet 80 mg PO DAILY Qty: 90 3RF clopidogrel [Plavix] 75 mg tablet 75 mg PO DAILY 90 Days Qty: 90 3RF metoprolol succinate 25 mg tablet extended release 24 hr 25 mg PO DAILY Qty: 90 3RF pantoprazole 40 mg tablet,delayed release (DR/EC) 40 mg PO DAILY Qty: 90 3RF potassium chloride 10 mEq tablet extended release 10 meq PO DAILY Qty: 90 3RF furosemide 20 mg tablet 20 mg PO DAILY Qty: 90 3RF losartan 50 mg tablet 75 mg PO BID Qty: 270 3RF Discharge Orders: Discharge ED (Routine); Ordered 08/16/22 Ordered By: Adriel Silva Referrals: Angela Kerr, ONLINE MERCHANDISING SPECIALIST [Primary Care Provider] - Discharge Diet: As Directed Discharge Activity: Increase activity as tolerated Patient Instructions: Abdominal Pain (ED), Opioid Safety, Pain Management Activity Restrictions/Additional Instructions: You were seen today for an atypical chest pain. Because of your symptoms based on your history and laboratory work appear to be a combination of reflux and biliary colic. In addition to this your sore throat symptoms are likely due to the influenza A which you tested positive for. Increase your pantoprazole to twice daily follow-up with your primary care doctor for further evaluation regarding your gallbladder. Coding Level of Care Code ED Military Technician for Serena Malin
--- NOTE | 2022-08-16 10:44 | XRR_ITS ---
PROCEDURE INFORMATION: Exam: XR Chest Exam date and time: 08/16/2022 10:52 AM Age: 61 years old Clinical indication: Pain; Chest pressure; Additional info: Chest pain TECHNIQUE: Imaging protocol: Radiologic exam of the chest. Views: 1 view. COMPARISON: CT chest [facility] [id number] 07/11/2022 8:32 AM FINDINGS: Lungs: The lung parenchyma is clear. Pleural spaces: No pneumothorax. No pleural effusion. Heart/Mediastinum: The cardiomediastinal silhouette is within normal limits. Bones/joints: Unremarkable. XR/XR chest 1V portable [id number] IMPRESSION: No acute cardiopulmonary abnormality.
[2022-08-16 10:46] VITALS: BP 180/103; PULSE 121; RESP 20; TEMP 37.8; O2SAT 98
[2022-08-16] MEDS: aspirin 81 mg Chew Tablet 324 MG PO (10:48)
--- NOTE | 2022-08-16 10:50 | ECG_ITS ---
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 Measurements Intervals [place] Rate: 113 P: 28 [place]: 136 QRS: -2 QRSD: 85 T: 29 QT: 328 QTc: 451 Interpretive Statements SINUS TACHYCARDIA LOW QRS VOLTAGE IN PRECORDIAL LEADS [QRS DEFLECTION < 1.0 mV IN CHEST LEADS] PATTERN CONSISTENT WITH PULMONARY DISEASE Compared to ECG 03/27/2021 20:23:25 Sinus rhythm no longer present Incomplete right bundle-branch block no longer present Electronically Signed On 08-16-2022 15:22:36 CENTER CUSTOMER SERVICE ASSOCIATE by Ruben Dumont M.D. [id number]
[2022-08-16 11:01] VITALS: BP 180/103; PULSE 105; RESP 16; O2SAT 99
[2022-08-16 11:20] LABS: Basophils # 0.1 10^3/uL (0.0-0.1); Basophils % 1.1 %; Eosinophils # 0.1 10^3/uL (0.0-0.8); Eosinophils % 0.7 %; Hematocrit 48.1 % (37.0-47.0); Hemoglobin 16.2 g/dL (11.5-15.3); Lymphocytes # 1.2 10^3/uL (0.8-4.8); Mean Corpuscular HGB Conc 33.7 g/dL (30.0-36.0); Mean Corpuscular Hemoglobin 31.8 pg (28.0-34.0); Mean Corpuscular Volume 94.3 fl (81-99); Mean Platelet Volume 11.4 fL (7.4-10.4); Monocytes # 0.8 10^3/uL (0.2-0.9); Monocytes % 9.7 %; Neutrophils # 5.89 10^3/uL (1.8-7.7); Neutrophils % 73.3 %; Nucleated Red Blood Cells % 0 %; Platelet Count 298 10^3/cmm (130-400); Red Cell Distribution Width 12.6 % (12.1-15.1); White Blood Count 8.1 10^3/uL (4.0-10.0)
[2022-08-16 11:55] LABS: Alanine Aminotransferase 43 U/L (0-33); Albumin Level 5.3 g/dL (3.5-5.2); Alkaline Phosphatase 129 U/L (35-105); Aspartate Amino Transferase 49 U/L (0-32); Blood Urea Nitrogen 5 mg/dL (8-23); Calcium 10.1 mg/dL (8.5-10.5); Carbon Dioxide 26 mmol/L (22-29); Chloride 101 mmol/L (98-107); Globulin 2.6 g/dL (1.3-4.6); Glomerular Filtration Rate 101.6 mL/min (90-130); Glucose 161 mg/dL (65-115); Osmolality Calculated 291 mOsm/kg (285-295); Sodium 140 mmol/L (136-145); Total Bilirubin 0.4 mg/dL (0.15-1.2); Total Protein 7.9 g/dL (6.6-8.7)
[2022-08-16 11:57] LABS: Troponin(5th) Baseline 7 ng/L (0-10)
[2022-08-16 12:11] LABS: Anion Gap 16.9 (5-19); Potassium 3.9 mmol/L (3.5-5.1)
[2022-08-16 12:29] VITALS: BP 143/93; PULSE 101; RESP 15; O2SAT 93
--- NOTE | 2022-08-16 12:44 | ECG_ITS ---
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 Measurements Intervals [place] Rate: 97 P: 42 [place]: 154 QRS: 7 QRSD: 86 T: 29 QT: 372 QTc: 474 Interpretive Statements SINUS RHYTHM LOW QRS VOLTAGE IN PRECORDIAL LEADS [QRS DEFLECTION < 1.0 mV IN CHEST LEADS] Compared to ECG 08/16/2022 10:50:48 Sinus tachycardia no longer present Electronically Signed On 08-17-2022 20:22:21 SENIOR NUCLEAR MEDICINE TECHNOLOGIST by Ruben Dumont M.D. [id number]
[2022-08-16 13:20] VITALS: BP 132/86; PULSE 95; RESP 16; O2SAT 97
--- NOTE | 2022-08-16 15:04 | USR_ITS ---
PROCEDURE INFORMATION: Exam: US Abdomen, Limited; Right Upper Quadrant Exam date and time: 08/16/2022 3:34 PM Age: 61 years old Clinical indication: Other: Back pain; Additional info: Abdominal pain TECHNIQUE: Imaging protocol: Real time ultrasound of the abdomen with image documentation. Limited exam focused on the right upper quadrant. COMPARISON: ES surgery / GI images 01/10/2022 9:20 AM FINDINGS: Liver: Liver is diffusely echogenic likely secondary to fatty infiltration. Gallbladder: There are a few small gallstones in the dependent portion the gallbladder intermixed with intraluminal sludge.. Gallbladder wall is not thickened. Biliary ducts: Normal. No stones. No dilation. Pancreas: Pancreas is not well visualized due to obscuring bowel loops. Right kidney: Normal. No mass. No hydronephrosis. US/US gall bladder [id number] IMPRESSION: 1. Cholelithiasis, gallbladder sludge. 2. Fatty infiltration of the liver. 3. Limited assessment of the pancreas.
[2022-08-16 15:19] LABS: Adenovirus Not Detected (NOT DETECT); Chlamydia Pneumoniae Not Detected (NOT DETECT); Coronavirus 229E,HKU1,NL63,OC4 Not Detected (NOT DETECT); Human Metapneumovirus Not Detected (NOT DETECT); Human Rhinovirus/Enterovirus Not Detected (NOT DETECT); Influenza A Detected (NOT DETECT); Influenza A H1 Not Detected (NOT DETECT); Influenza A H1-2009 Detected (NOT DETECT); Influenza A H3 Not Detected (NOT DETECT); Influenza B Not Detected (NOT DETECT); Mycoplasma Pneumoniae Not Detected (NOT DETECT); Parainfluenza Virus Type 1 Not Detected (NOT DETECT); Parainfluenza Virus Type 2 Not Detected (NOT DETECT); Parainfluenza Virus Type 3 Not Detected (NOT DETECT); Parainfluenza Virus Type 4 Not Detected (NOT DETECT); Respiratory Syncytial Virus A Not Detected (NOT DETECT); Respiratory Syncytial Virus B Not Detected (NOT DETECT); SARS-COV-2 Not Detected (NOT DETECT)
[2022-08-16 15:28] LABS: Influenza A Detected (NOT DETECT); Influenza A H1 Not Detected (NOT DETECT); Influenza A H1-2009 Detected (NOT DETECT); Influenza A H3 Not Detected (NOT DETECT); Influenza B Not Detected (NOT DETECT); Results from Genmark
[2022-08-16 16:25] VITALS: BP 132/86; PULSE 95; RESP 16; O2SAT 97
== END 2022-08-16 16:29 | disposition home or self-care (01) ==
PROVIDERS: Emergency Provider Family Medicine; PCP Nurse Practitioner Family
DX: K21.9 Gastro-esophageal reflux disease without esophagitis (principal); J10.1 Influenza due to other identified influenza virus with other respiratory manifestations; Z20.822 Contact with and (suspected) exposure to COVID-19; K80.20 Calculus of gallbladder without cholecystitis without obstruction; Z79.82 Long term (current) use of aspirin; Z79.02 Long term (current) use of antithrombotics/antiplatelets; I25.10 Atherosclerotic heart disease of native coronary artery without angina pectoris; I11.0 Hypertensive heart disease with heart failure; I50.30 Unspecified diastolic (congestive) heart failure; E78.5 Hyperlipidemia, unspecified; Z87.891 Personal history of nicotine dependence
CPT/HCPCS: 36415; 71045; 76705; 80053; 84484; 85025; 87631; 87635; 93005; 99285

== ENCOUNTER 2022-09-02 13:28 | Outpatient (CLI) | payer MEDICAID, SELFPAY ==
--- NOTE | 2022-09-02 13:38 | XR_ITS ---
WS: [id number] Chest 2 views, 09/02/2022 Clinical Data: DYSPNEA Comparison: Portable chest, 08/16/2022 Findings: No nodules, masses or effusions are seen. There is a patchy opacity in the left lower lobe which could represent atelectasis and/or pneumonia. The heart is normal. The pulmonary vascularity is not increased. No pneumothorax is seen. There are bilateral hilar granulomas consistent with old gra nulomatous disease. There are subcarinal granulomas. The aortic arch and descending thoracic aorta sh ow tortuosity. XR/XR chest 2V* [id number] Impression: 1. Patchy left lower lobe opacity consistent with pneumonia and/or atelectasis. 2. Atherosclerosis and old granulomatous disease.
== END 2022-09-02 13:29 | disposition home or self-care (01) ==
PROVIDERS: PCP Nurse Practitioner Family; Visit Provider Family Medicine
DX: R06.00 Dyspnea, unspecified (principal); I70.90 Unspecified atherosclerosis; D71 Functional disorders of polymorphonuclear neutrophils
CPT/HCPCS: 71046

== ENCOUNTER → 2022-09-24 15:43 | Outpatient (BNVA) | payer MEDICAID, SELFPAY | PROVIDERS: PCP Nurse Practitioner Family; Visit Provider Internal Medicine Pulmonary Disease | DX: J11.00 Influenza due to unidentified influenza virus with unspecified type of pneumonia (principal) | CPT/HCPCS: 71046 ==

== ENCOUNTER 2022-10-14 05:54 | Outpatient (CLI) | payer MEDICAID, SELFPAY ==
[2022-10-08 10:14] LABS: Basophils # 0.1 10^3/uL (0.0-0.1); Eosinophils # 0.2 10^3/uL (0.0-0.8); Eosinophils % 2.1 %; Hematocrit 45.2 % (37.0-47.0); Hemoglobin 14.3 g/dL (11.5-15.3); Lymphocytes # 3.4 10^3/uL (0.8-4.8); Lymphocytes % 34.7 %; Mean Corpuscular HGB Conc 31.6 g/dL (30.0-36.0); Mean Corpuscular Hemoglobin 30.4 pg (28.0-34.0); Mean Corpuscular Volume 96.2 fl (81-99); Mean Platelet Volume 11.1 fL (7.4-10.4); Monocytes # 0.7 10^3/uL (0.2-0.9); Monocytes % 7.2 %; Neutrophils % 54.7 %; Nucleated Red Blood Cells % 0 %; Platelet Count 311 10^3/cmm (130-400); Red Cell Distribution Width 12.8 % (12.1-15.1); White Blood Count 9.9 10^3/uL (4.0-10.0)
[2022-10-08 10:27] LABS: INR 0.94 (0.83-1.21); Prothrombin Time (Patient) 12.8 Seconds (12.0-15.1)
[2022-10-08 10:35] LABS: Blood Urea Nitrogen 8 mg/dL (8-23); Calcium 9.7 mg/dL (8.5-10.5); Carbon Dioxide 25 mmol/L (22-29); Chloride 102 mmol/L (98-107); Glomerular Filtration Rate 101.3 mL/min (90-130); Glucose 120 mg/dL (65-115); Osmolality Calculated 286 mOsm/kg (285-295); Sodium 138 mmol/L (136-145)
[2022-10-14] VITALS (31 sets, daily range): BP systolic 104–166; BP diastolic 74–108; PULSE 82–112; RESP 16–34; TEMP 36.8; O2SAT 92–98; BMI 34.7
--- NOTE | 2022-10-14 06:00 | XACV_ITS ---
Exam Room: 2 Ht: 157 cm Wt: 86 kg BSA: 1.98 m2 Gender: Female : 1960 Any Known Allergies: Other Exam Priority: Routine Procedure(s): Procedure Description: Diagnostic procedure Procedure Description: Left Heart Catheterization Procedure Description: Left ventriculography Procedure Description: Coronary Angiography Diagnostic Cath Status: Elective Diagnostic Findings * Left main artery: Patent LAD: Has mild to moderate proximal LAD stenosis. Patent prior stent. Gives rise to diagonal artery that has a 70% stenosis. Left circumflex artery: Patent. Has patent prior stent. RCA: Has mild 30% proximal stenosis.. * 1st Diagonal: obstructive 70% stenosis, MACRINA: 3 flow. * Coronary angiography shows right dominance. Conclusions 1. Left main artery: Patent LAD: Has mild to moderate proximal LAD stenosis. Patent prior stent. Gives rise to diagonal artery that has a 70% stenosis. Left circumflex artery: Patent. Has patent prior stent. RCA: Has mild 30% proximal stenosis.. 2. Patient has significant diagonal artery stenosis however it is a small caliber vessel. Medical therapy. 3. Normal left ventricular systolic function. Ejection fraction of 65%. Recommendations * Aggressive risk modification. * Outpatient cardiology follow-up in 4 weeks. Interventional RX Recommendation: medical therapy and/or counseling Diagnostic RX Recommendation: medical therapy and/or counseling Ventriculography Ejection Fraction: 65.0 % Pressures Phase:Rest AO : 127 / 96 ( 111 ) @ 7:43:00 AM 122 / 97 ( 110 ) @ 7:45:00 AM 107 / 81 ( 95 ) @ 7:49:00 AM 128 / 72 ( 98 ) @ 7:57:00 AM 129 / 71 ( 95 ) @ 7:57:00 AM LV : 145 / -9 / 10 @ 7:55:00 AM 145 / -7 / 14 @ 7:57:00 AM 145 / -8 / 13 @ 7:57:00 AM Valves Phase:DefaultPhase AV : 16.0 @ 8:03:47 AM 16.0 @ 8:03:47 AM AV Mean Gradient: 14.0 @ 8:03:47 AM 14.0 @ 8:03:47 AM Clinical Evaluation EBL: 5mL-10mL Procedural Details Procedure Consent Obtained. Pre-Procedure Time Out. Identified patient by full name and date of as verbalized by the patient/guarantor. Does the consent match the physician's order: Yes. Accurate & Complete Informed Consent: Yes. Inpatient/Outpatient History & Physical on Chart: Yes. If H&P is completed, is and addenduem needed: No; If yes, is the addendum complete: N/A. Visualize and Verify Site with Patient/Guarantor: N/A. Relevant Radiology Images available: Yes. Pre-op teaching completed and patient verbalized understanding. The risks, benefits, and alternatives of sedation and/or procedure were discussed by physician. The patient agrees to continue. Procedure started. Current Diagnosis : Chest Pain. [facility] Clinical Fraility Score: 3: Managing Well. Mesmerist Indications: Worsening Angina. Chest Pain Symptom Assessment: Typical Angina Symptoms. Correct patient, site and procedure confirmed by cath team. Current diagnosis: Chest Pain. PERRLA. Strong, equal hand cone tender bilaterally. Lungs clear x 5 lobes. IV Site on Arrival: 20 gauge in the left anticubital. IV Fluids: 0.9% NaCl at KVO. 0 mL infused prior to center medical and lab director. Pre Procedural Pulses: bilateral dorsalis pedis was 1+. Pre Procedural Pulses: bilateral posterior tibial was Doppled. Pre Procedural Pulses: bilateral radial was 1+. Oxygen started at 2liters/min via nasal canula. right groin was prepped with chloroprep then draped in the usual sterile fashion. right radial was prepped with chloroprep then draped in the usual sterile fashion. Physician notified. Baseline sample Acquired. HR: 82 BPM. Physician arrived. Physician scrubbed in. Immediate Pre-Procedure Time Out. Correct Patient: Yes; Correct Procedure: Yes; Correct Site: Yes; Correct Patient Position: Yes; Correct Supplies: Yes; Dried Flammable Prep: Yes; Blood Products Available: N/A;. Marco Navarro circulating with Dom Espositoncer. Lidocaine 1% infiltrated to the right groin. Arterial access obtained with micropuncture set. contrast hand injected through the access needle. A 5 turkish JL4 catheter in over wire. Multiple views taken of left coronary artery. Catheter removed over the standard wire. A 5 turkish JR4 catheter in over wire. Multiple views taken of right coronary artery. Catheter removed over the standard wire. Physician review of cine films. A 5 turkish Angled Pig catheter in over wire. EDP Sample taken: LV 145/-10,10; HR: 95 BPM; SpO2: 96%. LV gram performed in DEXTER @ 10 mL/second for a total of 30 mL. EDP Sample taken: LV 145/-8,14; HR: 97 BPM; SpO2: 94%. Pullback taken: LV 145/-8,13; AO 128/72(98); Mean: 14mmHg, Peak to Peak: 16mmHg, SEP: 26sec/min; HR: 97 BPM; SpO2: Off%. Catheter removed over the standard wire. Sheath(s) sutured into position with 2-0 silk and sterile 4x4's and Op-site applied over the site. No oozing or signs and symptoms of hematoma noted. Arterial sheath flushed and connected to tranducer and pressure bag with heparinized saline. A Suture was successful obtaining hemostatsis at the Right Femoral artery insertion site. Post Procedure: Pulses reassessed and unchanged. PERRLA. Strong, equal hand cone tender bilaterally. No VTE prophylaxis required. Vital chart was stopped. Medication's Wasted: Lidocaine 1% = 1 mL. Total IV fluids: 39 mL. Complications: None. Estimated blood loss: 5mL-10mL. Responsiveness - Normal response to verbal stimuli; alert and oriented, PERRLA. Airway - Unaffected, no intervention required; spontaneous ventilation. Circulation: W/N/L, pulses unchanged. Nausea/Vomiting: No. Procedure completed. Medication's Wasted: Heparin = 1000 units. Patient transferred by bed to CPRU. Access Site Site: Right Femoral artery Sheath Size: 6 Fr Hemostasis Method: Suture Hemostasis Success: Successful Procedure Medications Start: 7:33 AM Stop: 7:33 AM Medication: Versed Amount: 1 mg Route: I.V. Start: 7:34 AM Stop: 7:34 AM Medication: Fentanyl Amount: 50 mcg Route: I.V. Start: 7:35 AM Stop: 7:35 AM Medication: Versed Amount: 1 mg Route: I.V. Start: 7:40 AM Stop: 7:40 AM Medication: Fentanyl Amount: 50 mcg Route: I.V. I, the attending physician, have reviewed and verified all procedure medications. Yes, all medications given per verbal order History/Risk Factors Hypertension: Yes Dyslipidemia: Yes Peripheral Arterial Disease (PAD): No Myocardial Infarction (ND): No Obesity: No Renal Disease: No Prior Interventions PCI: Yes CABG: No Valve Surgery: No Report Signatures Finalized by Saturnino Mijares MD on 10/15/2022 09:43 AM
--- NOTE | 2022-10-14 07:22 | W.PM.OPSUD ---
Surgery/Procedure H&P Update DATE OF PROCEDURE: October 14, 2022 DATE H&P PERFORMED: 09/30/22 H&P UPDATE INFORMATION: I have reviewed H&P completed within last 30 days, I have examined patient prior to procedure and No changes to prior documentation PREOP DIAGNOSIS: Worsening angina PRIMARY INDICATION FOR PROCEDURE: Worsening angina PLANNED PROCEDURE: Operation Date: 10/14/22 07:00 Proposed Procedures p Left heart cath 86476,R94.39(Left) - Saturnino Mijares M.D Possible percutaneous coronary intervention PATIENT REASSESSED PRIOR TO SEDATION, WITH NO CHANGE NOTED: Yes PHYSICAL EXAM: alert, oriented x 3, clear to auscultation bilaterally and regular rate & rhythm AIRWAY EVAL/ANESTHESIA PLAN: normal airway, ASA III, Local Anesthesia, Risks, benefits & alternatives of sedation and/or procedure discussed and Patient agrees to continue as planned
--- NOTE | 2022-10-14 08:26 | PC.NURSE ---
received pt from clinical lab clerk post diagnostic [facility]. femoral access to be pulled by cpru nurse. pt complains of no pain. pt alert and oriented x3. pt placed on vitals monitor and will monitored per protocol. distal pulses palpable. pt educated by for recovery and stated understanding.
--- NOTE | 2022-10-14 09:05 | PC.NURSE ---
sheath removal with no complications. no brusing or hematoma noted after pull. pt educated on restrictions of leg and pt stated understanding.
--- NOTE | 2022-10-14 18:32 | PC.NURSE ---
discharge to home post angiogram wound home care discuss to pt. pt Hr has been elevated to upper 100s. instructed pt to keep a log of her HR and BP at home and bring it to her next appt with her club steward. pt verbalizes understanding. educated pt to dc prednisone as ordered and continue home meds. discharge papers provided to pt.
== END 2022-10-14 18:37 | disposition home or self-care (01) ==
LOC: CCL 05:58 → CSU 08:31
PROVIDERS: PCP Nurse Practitioner Family; Visit Provider Internal Medicine
DX: I25.119 Atherosclerotic heart disease of native coronary artery with unspecified angina pectoris (principal); E78.5 Hyperlipidemia, unspecified; Z86.16 Personal history of COVID-19; Z79.82 Long term (current) use of aspirin; I11.0 Hypertensive heart disease with heart failure; I50.30 Unspecified diastolic (congestive) heart failure; M79.7 Fibromyalgia; Z87.891 Personal history of nicotine dependence
CPT/HCPCS: 36415; 80048; 85025; 85610; 93458; 96361; 96365; 99152; 99153; C1769; C1887; C1894; J1644; J2250; J3010; J3490; J7030; Q9967

== ENCOUNTER → 2022-10-22 10:37 | Outpatient (BNVA) | payer MEDICAID, SELFPAY | PROVIDERS: PCP Nurse Practitioner Family; Visit Provider Nurse Practitioner Family | DX: I25.110 Atherosclerotic heart disease of native coronary artery with unstable angina pectoris (principal); I10 Essential (primary) hypertension | CPT/HCPCS: 36415; 80048 ==

== ENCOUNTER 2022-12-12 08:54 | Outpatient (CLI) | payer MEDICAID, SELFPAY ==
--- NOTE | 2022-12-12 09:09 | MM_ITS ---
WS: [id number] VIEWS: MLO and CC views both breasts. 3D digital tomosynthesis is also included in this exam. Comparison made with prior exam of 04/13/2007, 03/01/2012, 04/28/2017,. Findings: There was no sign of mass, architectural distortion or suspicious calcification in either breast. Fa tty MM/[place] [id number] Impression: BI-RADS: 2-Benign FOLLOW-UP: 1 Year Follow-up This mammogram was also analyzed by the Computer Aided Detection System R2 Imag e Packing Line Worker.
== END 2022-12-12 08:55 | disposition home or self-care (01) ==
LOC: RAD 08:58
PROVIDERS: PCP Nurse Practitioner Family; Visit Provider Family Medicine
DX: Z12.31 Encounter for screening mammogram for malignant neoplasm of breast (principal)
CPT/HCPCS: 77063; 77067

== ENCOUNTER 2023-02-10 09:08 | Outpatient (CLI) | payer MEDICAID, SELFPAY ==
--- NOTE | 2023-02-10 09:30 | USCV_ITS ---
Shey Agnes Age: 62 Gender: F : 1960 Exam Date: 02/10/2023 09:30 Ordering Phys: Saturnino Mijares M.D ([email or web address]) Technologist: Dandre Schwarz Exam Location: [facility] – [place] Indication: leg swelling PROCEDURES: Venous duplex imaging was performed in only the left lower extremity. The following venous structures were evaluated: common femoral vein, profunda vein, proximal portion of the greater saphenous vein, superficial femoral vein, and the popliteal vein. In addition, the posterior tibial and peroneal trunk were evaluated. Serial compression, augmentation maneuvers, and spectral Doppler flow evaluation were performed. FINDINGS: Normal 2-D Doppler and augmentation and compressibility throughout the lower extremity venous structures. Additional imaging through the proximal calf veins also reveals no thrombus. Limited evaluation of the greater saphenous vein is patent with no thrombus. CONCLUSIONS No DVT left lower extremity. Dr. Essence Freire DO (Electronically Signed) Final Date: 10 February 2023 10:20 S
== END 2023-02-10 09:09 | disposition home or self-care (01) ==
PROVIDERS: PCP Nurse Practitioner Family; Visit Provider Internal Medicine
DX: M79.89 Other specified soft tissue disorders (principal)
CPT/HCPCS: 93971

== ENCOUNTER 2023-07-31 16:31 | Outpatient (CLI) | payer MEDICAID, SELFPAY ==
--- NOTE | 2023-07-31 16:38 | XRR_ITS ---
PROCEDURE INFORMATION: Exam: XR Chest Exam date and time: 07/31/2023 4:43 PM Age: 62 years old Clinical indication: Cough; Additional info: Subacute cough TECHNIQUE: Imaging protocol: Radiologic exam of the chest. Views: 2 views. COMPARISON: CR XR chest 2V* [id number] 09/24/2022 3:43 PM FINDINGS: Lungs: Stable mild interstitial scarring in both lungs. Left calcified granuloma. No consolidation. Pleural spaces: Unremarkable. No pleural effusion. No pneumothorax. Heart/Mediastinum: Calcified mediastinal and left hilar lymph nodes. Bones/joints: Unremarkable. Organs: Calcified granulomas in the spleen. XR/XR chest 2V* [id number] IMPRESSION: No acute findings.
== END 2023-07-31 16:32 | disposition home or self-care (01) ==
LOC: RAD 16:32
PROVIDERS: PCP Nurse Practitioner Family; Visit Provider Family Medicine
DX: R05.2 Subacute cough (principal)
CPT/HCPCS: 71046

== ENCOUNTER 2023-12-21 11:32 | Outpatient (CLI) | payer MEDICAID, SELFPAY ==
--- NOTE | 2023-12-21 11:39 | XRR_ITS ---
PROCEDURE INFORMATION: Exam: XR Chest Exam date and time: 12/21/2023 11:45 AM Age: 63 years old Clinical indication: Cough TECHNIQUE: Imaging protocol: Radiologic exam of the chest. Views: 2 views. COMPARISON: CR XR chest 2V* [id number] 07/31/2023 4:43 PM FINDINGS: Lungs: Lungs are free of acute disease. Suspect granulomatous changes. Pleural spaces: Unremarkable. No pleural effusion. No pneumothorax. Heart/Mediastinum: Unremarkable. No cardiomegaly. Bones/joints: Unremarkable. XR/XR chest 2V* [id number] IMPRESSION: Nonacute findings.
== END 2023-12-21 11:33 | disposition home or self-care (01) ==
LOC: RAD 11:35
PROVIDERS: PCP Nurse Practitioner Family; Visit Provider Nurse Practitioner Family
DX: R05.8 Other specified cough (principal)
CPT/HCPCS: 71046

== ENCOUNTER 2023-12-25 09:12 | Outpatient (CLI) | payer MEDICAID, SELFPAY ==
--- NOTE | 2023-12-25 09:17 | MM_ITS ---
WS: [id number] BILATERAL SCREENING DIGITAL TOMOSYNTHESIS MAMMOGRAM WITH CAD HISTORY: SCREENING COMPARISON: 12/12/2022, 04/28/2017 Bilateral CC and MLO views with tomosynthesis and synthetic mammography submitted. Computer aided det ection analyzed. Breast composition: There are scattered areas of fibroglandular density. No suspicious masses, microc alcifications or architectural distortion. Scattered bilateral breast calcifications. MM/[place] [id number] IMPRESSION: BI-RADS: 2-Benign FOLLOW UP: 1 Year Follow-up
== END 2023-12-25 09:13 | disposition home or self-care (01) ==
LOC: RAD 09:13
PROVIDERS: PCP Nurse Practitioner Family; Visit Provider Nurse Practitioner Family
DX: Z12.31 Encounter for screening mammogram for malignant neoplasm of breast (principal)
CPT/HCPCS: 77063; 77067

== ENCOUNTER 2024-05-09 09:01 | Day surgery (SDC) | payer MEDICAID, SELFPAY ==
[2024-05-09 09:18] VITALS: BP 135/93; PULSE 71; RESP 18; TEMP 36.6; O2SAT 96; BMI 32.0
[2024-05-09] MEDS: sodium chloride 0.9% 1,000 ML 30 ML IV (09:29)
--- NOTE | 2024-05-09 09:31 | ANES.PREANE2 ---
Pre-Anesthetic Assessment Height/Weight: Height 1.57 m Weight 79.379 kg Temp Pulse Resp BP Pulse Ox O2 Del Method 97.8 F 71 18 135/93 96 Room Air 05/09/24 09:18 05/09/24 09:18 05/09/24 09:18 05/09/24 09:18 05/09/24 09:18 05/09/24 09:18 Operation Date: 05/09/24 10:10 Proposed Procedures p EGD 90783, K21.9(Not Applicable) - Gilbert Albert MD Familial anesthetic complications: None Was Beta Amos taken within 24 hours: N/A Was Clonidine taken within 24 hours: N/A Last intake: Intake Last Liquid Date 05/08/24 Last Liquid Time 22:00 Last Solid Date 05/08/24 Last Solid Time 21:00 Social No alcohol and No tobacco formers moker Exam alert, oriented x 3, clear to auscultation bilaterally and regular rate & rhythm Airway Mallampati: Class I Dentition: false Pulmonary Chronic Obstructive Pulmonary Disease CV/HEM Coronary Artery Disease (2 stents, nitro use) and Hypertension GI Gastroesophageal Reflux Disease Metabolic Diabetes Mellitus and Hyperlipidemia Anesthetic Plan ASA status: 3 Anesthesia: MAC Risk of > 500 ml blood loss (7ml/kg in children): No Medications/Allergies Home Medications Medication Instructions Recorded Confirmed Last Taken Type aspirin 81 mg tablet,delayed 81 mg PO DAILY 12/19/19 05/05/24 05/04/24 History release (Adult Low Dose Aspirin) simvastatin 80 mg tablet 80 mg PO DAILY #90 tabs 05/31/21 05/05/24 05/08/24 Rx fenofibrate 150 mg capsule 145 mg PO DAILY 03/26/23 05/05/24 05/08/24 History dulaglutide 0.75 mg/0.5 mL 0.75 mg SUBCUT .WEEKLY 02/02/24 05/09/24 3 Weeks Ago History subcutaneous pen injector ~04/18/24 (Trulicity) metformin 500 mg tablet 500 mg PO DAILY 02/02/24 05/05/24 05/07/24 History nitroglycerin 0.4 mg sublingual 0.4 mg sublingual Q5M PRN chest 02/02/24 05/05/24 3 Weeks Ago Rx tablet pain #25 tabs ~04/18/24 clopidogrel 75 mg tablet 75 mg PO DAILY 05/05/24 05/05/24 05/03/24 History furosemide 20 mg tablet 20 mg PO DAILY 05/05/24 05/05/24 05/08/24 History losartan 50 mg tablet 50 mg PO DAILY 05/05/24 05/05/24 05/08/24 History metoprolol succinate 25 mg 25 mg PO DAILY 05/05/24 05/05/24 05/09/24 07:30 History tablet,extended release 24 hr pantoprazole 40 mg tablet,delayed 40 mg PO DAILY 05/05/24 05/05/24 05/08/24 History release potassium chloride 10 mEq 10 meq PO DAILY 05/05/24 05/05/24 05/08/24 History tablet,extended release Allergies Allergy/AdvReac Type Severity Reaction Status Date / Time shellfish derived Allergy Unknown Unknown Verified 05/05/24 10:22 iodine AdvReac Unknown ALGY-Hives Verified 05/05/24 10:22 Current Medications Generic Name Dose Route Start Last Admin Trade Name Freq PRN Reason Stop Dose Admin Sodium Chloride 1,000 mls @ 30 mls/hr 05/09/24 09:15 05/09/24 09:29 Sodium Chloride 0.9% IV 30 mls/hr .Q24H OMI Administration PFSH Anesthesia Medical History Diastolic heart failure Shortness of breath Hyperlipidemia Fibromyalgia HTN (hypertension) CAD (coronary artery disease) Surgical History S/P hysterectomy S/P carpal tunnel release H/O oral surgery H/O section Hx of heart artery stent Family History Mother Cancer Other Heart disease Hodgkins disease Hypertension Social History Smoking and tobacco/nicotine status: former use of tobacco/nicotine Quit status (tobacco/nicotine): has quit using Year quit tobacco: 2004 - 2PPD x 30 Years Second hand smoke exposure: No Alcohol intake: never Substance/Drug Use: never Lives independently: Yes Household members: significant other Marital status: Life Partner Current occupational status: unemployed Do you think of yourself as: Straight/Heterosexual Current gender identity: Female Data Anesthesia Cardiac Studies: No Data to Display
[2024-05-09 09:46] LABS: Glucose Point of Care 108 mg/dL (70-110)
--- NOTE | 2024-05-09 10:17 | W.PM.OPSUD ---
Surgery/Procedure H&P Update DATE OF PROCEDURE: May 09, 2024 DATE H&P PERFORMED: 04/29/24 H&P UPDATE INFORMATION: I have reviewed H&P completed within last 30 days, I have examined patient prior to procedure and No changes to prior documentation PLANNED PROCEDURE: Operation Date: 05/09/24 10:10 Proposed Procedures p EGD 56603, K21.9(Not Applicable) - Gilbert Albert MD
[2024-05-09 10:33] VITALS: BP 120/77; PULSE 70; RESP 18; TEMP 36.3; O2SAT 97
[2024-05-09 10:40] VITALS: BP 130/92; PULSE 69; RESP 18; TEMP 36.2; O2SAT 96
--- NOTE | 2024-05-09 11:00 | ANE.PACU2 ---
Inpatient post-anesthesia follow up: Airway intact: Yes Vital signs: Temperature 97.2 F Pulse Rate 69 Respiratory Rate 18 Blood Pressure 130/92 Pulse Oximetry 96 Oxygen Delivery Me thod Room Air Oxygen Flow Rate Fraction of Inspir ed Oxygen Hydration adequate: Yes Nausea and vomiting: No Pain level: 1 Mental status: Baseline
== END 2024-05-09 10:59 | disposition home or self-care (01) ==
PROVIDERS: PCP Nurse Practitioner Family; Visit Provider Student in an Organized Health Care Education/Training Program
PROC: 0DJ08ZZ Inspection of Upper Intestinal Tract, Via Natural or Artificial Opening Endoscopic (ICD-10-PCS; CPT 43235; principal; 2024-05-09 10:10)
DX: K21.9 Gastro-esophageal reflux disease without esophagitis (principal); K29.70 Gastritis, unspecified, without bleeding; J44.9 Chronic obstructive pulmonary disease, unspecified; I25.10 Atherosclerotic heart disease of native coronary artery without angina pectoris; Z95.5 Presence of coronary angioplasty implant and graft; E11.9 Type 2 diabetes mellitus without complications; E78.5 Hyperlipidemia, unspecified; I11.0 Hypertensive heart disease with heart failure; I50.32 Chronic diastolic (congestive) heart failure; Z87.891 Personal history of nicotine dependence
CPT/HCPCS: 36416; 43239; 82962; 88305; J7030

== ENCOUNTER → 2024-11-08 10:08 | Outpatient (BNVA) | payer MEDICAID, SELFPAY | PROVIDERS: PCP Nurse Practitioner Family; Visit Provider Nurse Practitioner Family | DX: R00.2 Palpitations (principal); I10 Essential (primary) hypertension; R94.31 Abnormal electrocardiogram [ECG] [EKG] | CPT/HCPCS: 36415; 80048; 84443; 85025; 93005 ==

== ENCOUNTER 2024-12-13 06:40 | Outpatient (CLI) | payer MEDICAID, SELFPAY ==
--- NOTE | 2024-12-13 07:00 | USCV_ITS ---
Agnes Kat Age: 64 Gender: F : 1960 Exam Date: 12/13/2024 06:55 Ordering Phys: Elise Schaffer NP Technologist: Exam Location: [facility] [place] Indication: murmur BP: 120 / 80 HR: 104 Rhythm: Sinus Technical Quality: Adequate MEASUREMENTS (Male / Female) Normal Values 2D ECHO LV Diastolic Diameter PLAX 4.0 cm 4.2 - 5.9 / 3.9 - 5.3 cm IVS Diastolic Thickness 1.1 cm 0.6 - 1.0 / 0.6 - 0.9 cm IVS Systolic Thickness 1.6 cm LVPW Diastolic Thickness 1.2 cm 0.6 - 1.0 / 0.6 - 0.9 cm LVPW Systolic Thickness 1.4 cm LVOT Diameter 2.0 cm LV Ejection Fraction 2D Teich 67.3 % LV Ejection Fraction MOD 4C 56.9 % LV Ejection Fraction MOD 2C 62.9 % LV Ejection Fraction 2C AL 64.1 % LA Diameter 3.3 cm RA Systolic Volume 4C AL 27.6 ml RA Systolic Volume 4C MOD 25.8 ml LA Sys Volume AL 77.5 cm cubed LA Sys Volume Index AL 41.5 cm cubed/m squared Aorta at Sinotubular Diameter 2.7 cm M-MODE LA Ao Ratio MM 1.2 AV Cusp Separation MM 2.1 cm DOPPLER AV Peak Velocity 147.0 cm/s LVOT Peak Velocity 97.0 cm/s AV Area Cont Eq vti 2.2 cm squared AV Area Cont Eq pk 2.1 cm squared MV Peak Velocity 129.0 cm/s MV Area PHT 2.7 cm squared Mitral E to A Ratio 0.9 TV Peak Velocity 172.7 cm/s TR Peak Velocity 278.0 cm/s TR Peak Gradient 30.9 mmHg TV Peak E Velocity 74.0 cm/s PV Peak Velocity 98.0 cm/s FINDINGS Left Ventricle Left ventricle is normal size. LV systolic function is normal with EF of 60 to 65%. No regional wall motion abnormalities are seen. Right Ventricle Normal in size and function Right Atrium Normal in size Left Atrium Dilated Mitral Valve Moderate mitral annular calcification. Mild mitral regurgitation Aortic Valve Structurally normal aortic valve. No significant stenosis or regurgitation. Tricuspid Valve Mild tricuspid regurgitation. RVSP is normal Pulmonic Valve Not well visualized Pericardium Normal Aorta Normal in size IVC Appears to be normal CONCLUSIONS LV systolic function is normal with EF of 60-65%. Left atrial dilation. Mild mitral regurgitation. Mild tricuspid regurgitation. Saturnino Mijares MD (Electronically Signed) Final Date: 20 Dec 2024 12:24 S
== END 2024-12-13 06:41 | disposition home or self-care (01) ==
PROVIDERS: PCP Nurse Practitioner Family; Visit Provider Nurse Practitioner Family
DX: R01.1 Cardiac murmur, unspecified (principal); R93.1 Abnormal findings on diagnostic imaging of heart and coronary circulation; I34.81 Nonrheumatic mitral (valve) annulus calcification; I34.0 Nonrheumatic mitral (valve) insufficiency; I07.1 Rheumatic tricuspid insufficiency
CPT/HCPCS: 93005; 93306

== ENCOUNTER 2024-12-28 08:22 | Outpatient (CLI) | payer MEDICAID, SELFPAY ==
--- NOTE | 2024-12-28 08:24 | MM_ITS ---
WS: [id number] BILATERAL SCREENING DIGITAL TOMOSYNTHESIS MAMMOGRAM WITH CAD HISTORY: SCREENING COMPARISON: 12/25/2023, 12/12/2022 Bilateral CC and MLO views with tomosynthesis and synthetic mammography submitted. Computer aided detection analyzed. Breast composition: There are scattered areas of fibroglandular density. No suspicious masses, microcalcifications or architectural distortion. Scattered benign calcifications within each breast. Some of these are skin calcifications. MM/MM scr tomosynthesis [id number] IMPRESSION: BI-RADS: 2 - Benign. FOLLOW UP: 1 Year Follow-up
== END 2024-12-28 08:23 | disposition home or self-care (01) ==
PROVIDERS: PCP Nurse Practitioner Family; Visit Provider Nurse Practitioner Family
DX: Z12.31 Encounter for screening mammogram for malignant neoplasm of breast (principal); R92.323 Mammographic fibroglandular density, bilateral breasts; R92.1 Mammographic calcification found on diagnostic imaging of breast
CPT/HCPCS: 77063; 77067

== ENCOUNTER 2025-03-22 08:32 | Outpatient (CLI) | payer MEDICAID, SELFPAY ==
--- NOTE | 2025-03-22 10:05 | XR_ITS ---
WS: [id number] CHEST 2 VIEWS HISTORY: HEMOPTYSIS/ACUTE LARYNGITIS/ACUTE URI/COUGH COMPARISON: 12/21/2023 Lungs: Hazy opacification RIGHT upper lobe is new. This may be an area of bronchiectasis or pneumonitis. No dense areas of consolidation. No pneumonia. Cardiac size: Normal. Mediastinum/Aorta: Calcified LEFT hilar lymph nodes. Mildly ectatic aorta. No aneurysm. Bones: Mild increase in thoracic kyphosis. Prior cholecystectomy. XR/XR chest 2V* [id number] IMPRESSION: 1. Subsolid opacification RIGHT upper lobe. Differential includes scar, bronch iectasis and pneumonitis. New since 12/21/2023. Recommend follow-up chest CT with IV contrast. 2. Mild atherosclerosis aorta.
== END 2025-03-22 08:33 | disposition home or self-care (01) ==
PROVIDERS: PCP Nurse Practitioner Family; Visit Provider Nurse Practitioner Family
DX: R04.2 Hemoptysis (principal); R91.8 Other nonspecific abnormal finding of lung field
CPT/HCPCS: 71046

== ENCOUNTER 2025-03-24 09:58 | Outpatient (CLI) | payer MEDICAID, SELFPAY ==
--- NOTE | 2025-03-24 10:07 | CT_ITS ---
WS: [id number] CT chest w con* [id number] HISTORY: ABNORMAL CHEST XRAY/HEMOPTYSIS/COUGH TECHNIQUE: Axial imaging performed through the thorax. Coronal and sagittal reformats are submitted. All CT scans at [facility] use at least one of these dose optimization techniques: automated exposure control; mA and/or kV adjustment per patient size (includes targeted exams where dose is matched to clinical indication); or iterative reconstruction. CONTRAST: Omnipaque 350; 100 mL IV. DLP: 460.17 mGy.cm COMPARISON: Chest radiograph 03/22/2025. Prior CT 07/11/2022 Lungs and central airway: Groundglass opacification identified in the RIGHT upper lobe abuts the minor fissure. This opacification was visualized on the recent chest x-ray and measures 2.2 x 2.1 cm. There are additional scattered areas of groundglass attenuation throughout both lungs but are smaller in size. Subsolid opacification measures 1.1 cm in the posterior medial RIGHT upper lobe. Pleura: Normal. No pleural effusion. Heart and pericardium: Normal size heart with no pericardial effusion. Mediastinum and sylvie: Mildly prominent lymphoid tissue at the hilum. No adenopathy. Vessels: Mild atherosclerosis aorta. No aneurysm. Normal size pulmonary artery. Chest wall and lower neck: No soft tissue masses. Upper abdomen: Prior cholecystectomy. The visualized liver is normal. Hepatic and splenic granulomata. No adrenal mass. Small hiatal hernia. Osseous structures: Mild thoracic spondylosis. No destructive bone lesions. CT/CT chest w con* [id number] IMPRESSION: 1. Groundglass attenuation RIGHT upper lobe measures 2.2 x 2.1 cm and correspo nds to the findings on the recent chest radiograph. 2. Additional bilateral groundglass opacification and a subsolid nodule in the RIGHT upper lobe. 3. Chest opacifications will need to be followed for resolution. After treatme nt for possible pneumonitis recommend follow-up chest CT in 3 months. Low-grade neoplasm can present as groundglass opacifications. Follow-up to resolution re commended. 4. No mediastinal or hilar pathologically enlarged lymph nodes. 5. Prior cholecystectomy.
[2025-03-24 10:28] LABS: Blood Urea Nitrogen 9 mg/dL (8-23)
[2025-03-24] MEDS: iohexol 350 mg/mL 500 mL Btl (per mL) IV (10:39)
== END 2025-03-24 09:59 | disposition home or self-care (01) ==
LOC: RAD 09:58
PROVIDERS: PCP Nurse Practitioner Family; Visit Provider Nurse Practitioner Family
DX: R91.8 Other nonspecific abnormal finding of lung field (principal); R04.2 Hemoptysis
CPT/HCPCS: 71260; 82565; 84520

== ENCOUNTER → 2025-04-03 14:38 | Outpatient (BNVA) | payer MEDICAID, SELFPAY | PROVIDERS: PCP Nurse Practitioner Family; Visit Provider Internal Medicine Cardiovascular Disease | DX: R58 Hemorrhage, not elsewhere classified (principal); R01.1 Cardiac murmur, unspecified; R00.2 Palpitations; R07.9 Chest pain, unspecified; I10 Essential (primary) hypertension | CPT/HCPCS: 36415; 80048; 85025; 85610 ==

== ENCOUNTER 2025-04-20 16:50 | Outpatient (CLI) | payer MEDICAID, SELFPAY ==
--- NOTE | 2025-04-20 17:15 | CT_ITS ---
WS: [id number] CT chest ION (PULM ONLY) [id number] HISTORY: Lung nodules TECHNIQUE: Axial imaging performed through the thorax. CONTRAST: None DLP: 270.64 mGy COMPARISON: 03/24/2025, 07/11/2022 Axial imaging performed prior to navigational bronchoscopy. The subsolid nodule in the medial RIGHT upper lobe is identified. The subsolid component appears to have improved since 03/24/2025. There is a pleural-based nodule measuring 6.7 mm which persists abutting the mediastinum. The previously described bilateral groundglass opacifications have also slightly improved but not completely resolved. Thin linear areas of increased density within the periphery of the upper and lower lung ding are probably areas of scarring and or atelectasis. No new pneumonia. 5 mm RIGHT subpleural nodule anteriorly along the diaphragmatic surface. Calcified granuloma LEFT lower lobe. CT/CT chest ION (PULM ONLY) [id number] IMPRESSION: 1. Subsolid opacification medial RIGHT upper lobe abutting the mediastinum is reidentified. The subsolid opacification has nearly resolved. The pleural-based nodule measuring 6.7 mm persists. 2. The additional scattered bilateral groundglass opacifications have either i mproved or resolved. No increasing area of consolidation.
== END 2025-04-20 16:51 | disposition home or self-care (01) ==
LOC: RAD 16:52
PROVIDERS: PCP Nurse Practitioner Family; Visit Provider Internal Medicine
DX: R91.8 Other nonspecific abnormal finding of lung field (principal)
CPT/HCPCS: 71250

== ENCOUNTER 2025-04-28 09:54 | Outpatient (CLI) | payer MEDICAID, SELFPAY ==
--- NOTE | 2025-04-28 10:00 | PETR_ITS ---
PROCEDURE INFORMATION: Exam: PET/CT Skull Base to Mid-thigh Exam date and time: 04/28/2025 10:45 AM Age: 64 years old Clinical indication: Symptoms: Lung nodules; There is a pleural-based nodule measuring 6.7 mm which persists abutting the mediastinum. LABS AND CLINICAL REPORTS: Glucose: 108 mg/dl Treatment strategy for malignancy (PET staging): Initial Staging (PI) TECHNIQUE: Imaging protocol: Following at least four-hour fasting and following the injection of radiopharmaceutical, low dose CT images were obtained. Then, PET images were obtained. Attenuation corrected images were constructed using the CT scan. Fused images of PET and CT were reviewed. The standardized uptake values (SUV) reported below are maximum values within a region of interest, expressed in gm/ml. Exam includes orbital meatal line to mid-thigh. SUV normalization method: BodyWeight Radiopharmaceutical: 10.3 mCi F-18 FDG (Fluorodeoxyglucose), IV. Time of imaging post radiopharmaceutical administration: 46 minutes Injection site: RAC COMPARISON: CT chest ION (PULM ONLY) [id number] 04/20/2025 5:21 PM FINDINGS: Brain: Visualized brain has normal physiologic uptake. Pharynx: No abnormal uptake. Larynx: No abnormal uptake. Lungs, pleura and trachea: No abnormal uptake. No FDG avid nodules. Left lung calcified granulomata. Bilateral bandlike scarring. No consolidation or mass. Heart: Normal physiologic uptake. Mitral annular calcification. Coronary arteries: Heavy coronary artery calcification. Mediastinal space: No abnormal uptake. Diaphragm: Small hiatal hernia. Liver: No abnormal uptake. Calcified granulomata. Gallbladder and biliary ducts: No abnormal uptake. Prior cholecystectomy. Pancreas: No abnormal uptake. Spleen: No abnormal uptake. Calcified granulomata. Adrenal glands: No abnormal uptake. Kidneys and ureters: Normal physiologic uptake. Right extrarenal pelvis. Stomach and bowel: Short-segment FDG avid colonic thickening at the splenic flexure showing SUV max 9.2 on axial image 123. Reproductive: The uterus is surgically absent. Vasculature: No abnormal uptake. Moderate systemic atherosclerotic calcification without aortic aneurysm. Lymph nodes: No abnormal uptake. No lymphadenopathy in the head, neck, chest, abdomen, pelvis, and extremities. Calcified mediastinal and left hilar nodes in keeping with sequela of old granulomatous disease. Skeleton: No abnormal uptake in the visualized axial and appendicular skeleton. Degenerative change along the axial skeletal system. Soft tissues: No abnormal uptake in the visualized head, neck, chest, abdomen, pelvis, and extremities. Small fat containing umbilical hernia. METRICS: Mediastinal blood pool: SUV mean 2.5 Liver uptake: SUV mean 3.0 PET/PET skull to thigh INIT [id number] IMPRESSION: 1. No FDG avid pulmonary nodules. 2. Short-segment FDG avid colonic thickening at the splenic flexure raises concern for malignancy and warrants further evaluation with colonoscopy. 3. Additional chronic and incidental findings as above, to include atherosclerosis with heavy coronary artery calcification.
== END 2025-04-28 09:55 | disposition home or self-care (01) ==
PROVIDERS: PCP Nurse Practitioner Family; Visit Provider Internal Medicine
DX: R91.8 Other nonspecific abnormal finding of lung field (principal)
CPT/HCPCS: 78815; A9552

== ENCOUNTER 2025-05-03 11:47 | Outpatient (CLI) | payer MEDICAID, SELFPAY | END 2025-05-03 11:48 | disposition home or self-care (01) | LOC: RT 11:48 | PROVIDERS: PCP Nurse Practitioner Family; Visit Provider Internal Medicine | DX: R91.8 Other nonspecific abnormal finding of lung field (principal) | CPT/HCPCS: 94010; 94726; 94729 ==

== ENCOUNTER 2025-05-10 09:55 | Outpatient (CLI) | payer MEDICAID, SELFPAY ==
[2025-05-10 11:56] LABS: Alanine Aminotransferase 16 U/L (0-33); Albumin Level 4.3 g/dL (3.5-5.2); Alkaline Phosphatase 72 U/L (35-105); Anion Gap 14.4 (5-19); Aspartate Amino Transferase 22 U/L (0-32); Blood Urea Nitrogen 13 mg/dL (8-23); Calcium 9.5 mg/dL (8.5-10.5); Carbon Dioxide 24 mmol/L (22-29); Chloride 106 mmol/L (98-107); Globulin 2.6 g/dL (1.3-4.6); Glucose 98 mg/dL (65-115); Osmolality Calculated 290 mOsm/kg (285-295); Potassium 4.4 mmol/L (3.5-5.1); Sodium 140 mmol/L (136-145); Total Protein 6.9 g/dL (6.6-8.7)
[2025-05-10 15:33] LABS: Hematocrit 43.8 % (36-47); Hemoglobin 14.20 g/dL (11.27-16.99); Mean Corpuscular HGB Conc 32.4 g/dL (30-55); Mean Corpuscular Hemoglobin 30.2 pg (27-33); Mean Corpuscular Volume 93.2 fl (85-98); Nucleated Red Blood Cells % 0 %; Platelet Count 325 10^3/cmm (157-399); Red Blood Count 4.70 10^6/uL (3.85-5.65); White Blood Count 9.00 10^3/uL (3.29-11.43)
== END 2025-05-10 09:56 | disposition home or self-care (01) ==
LOC: LAB 09:59
PROVIDERS: PCP Nurse Practitioner Family; Visit Provider Internal Medicine Cardiovascular Disease
DX: R07.9 Chest pain, unspecified (principal); I50.32 Chronic diastolic (congestive) heart failure; R06.02 Shortness of breath; I10 Essential (primary) hypertension; I25.110 Atherosclerotic heart disease of native coronary artery with unstable angina pectoris
CPT/HCPCS: 36415; 80053; 85025

== ENCOUNTER 2025-05-12 06:02 | Outpatient (CLI) | payer MEDICAID, SELFPAY ==
[2025-05-12] VITALS (15 sets, daily range): BP systolic 115–176; BP diastolic 72–113; PULSE 68–94; RESP 12–23; TEMP 36.5–36.9; O2SAT 90–98; BMI 32.1
--- NOTE | 2025-05-12 06:00 | XACV_ITS ---
Ht: 157 cm Wt: 80 kg BSA: 1.90 m2 Gender: Female : 1960 Any Known Allergies: Other Exam Priority: Routine Indication(s): - Unstable angina Procedure(s): Procedure Description: Diagnostic procedure Procedure Description: PCI procedure Procedure Description: PTCA Procedure Description: Miscellaneous Procedure Description: ACT Procedure Description: Coronary Angiography Miguel SOLORIO; Diagnostic Cath Status: Elective Diagnostic Findings * No disease noted in the Left Main, Left Anterior Descending, Right, or Circumflex coronary arteries. * 1st Diagonal: obstructive 70% stenosis, MACRINA: 3 flow. * Coronary angiography shows right dominance. PCI Indication: New Onset Angina <= 2 months Interventional Findings * Unsuccessful balloon angioplasty of mid to distal diagonal 1 branch because it is a highly calcified small caliber vessel, we initially used 1.5 x 6 mm balloon it crossed and dilated but did not open up the blood vessel, followed by we also we also tried to 2.0 x 12 balloon we were able to cross with 2.0 x 8 mm balloon, we performed balloon angioplasty but was not able to open up the lesion therefore subtotally occluded 99% lesion was reduced to 90% only, and MACRINA-3 flow was continued to be observed there. At this point we stopped the procedure and tried to continue treating her medically. * 1st Diagonal: 70% stenosis treated with a AB MINI TREK 1.50X6 RX BALLOON, AB MINI TREK 2.00X12 RX BALLOON, AB MINI TREK 1.50X8 RX BALLOON, and AB MINI TREK 2.00X8 RX BALLOON. Conclusions 1. Indication: Chest pain despite of optimization of medicine and the patient with prior multiple stents, shortness of breathLeft main: Normal no significant stenosis LAD has diffuse luminal irregularities it is small caliber vessel without significant stenosis, mid stent is patent. Diagonal branch has mid high-grade calcified stenosis, it appeared to be the culprit vessel Left circumflex: Has luminal irregularity with patent previously placed mid to distal stent RCA has luminal irregularity without significant stenosis Unsuccessful balloon angioplasty of mid to distal diagonal 1 branch because it is a highly calcified small caliber vessel, we initially used 1.5 x 6 mm balloon it crossed and dilated but did not open up the blood vessel, followed by we also we also tried to 2.0 x 12 balloon we were able to cross with 2.0 x 8 mm balloon, we performed balloon angioplasty but was not able to open up the lesion therefore subtotally occluded 99% lesion was reduced to 90% only, and MACRINA-3 flow was continued to be observed there. At this point we stopped the procedure and tried to continue treating her medically. 2. No disease noted in the Left Main, Left Anterior Descending, Right, or Circumflex coronary arteries. 3. 1st Diagonal was treated with a Balloon, Balloon, Balloon, and Balloon. Recommendations * Continue optimizing medical management. Diagnostic RX Recommendation: PCI w/o planned CABG Pressures Phase:Rest AO : 132 / 73 ( 100 ) @ 9:45:00 AM 124 / 77 ( 97 ) @ 9:59:00 AM 117 / 68 ( 88 ) @ 10:13:00 AM Clinical Evaluation EBL: 5mL-10mL Procedural Details Procedure Consent Obtained. Admit Source: Out Patient. Pre-Procedure Time Out. Identified patient by full name and date of as verbalized by the patient/guarantor. Does the consent match the physician's order: Yes. Accurate & Complete Informed Consent: Yes. Inpatient/Outpatient History & Physical on Chart: Yes. If H&P is completed, is and addenduem needed: No; If yes, is the addendum complete: N/A. Visualize and Verify Site with Patient/Guarantor: N/A. Relevant Radiology Images available: N/A. The risks, benefits, and alternatives of sedation and/or procedure were discussed by physician. The patient agrees to continue. Procedure started. [facility] Clinical Fraility Score: 3: Managing Well. Wrapper And Preserver Indications: Other. Chest Pain Symptom Assessment: Typical Angina Symptoms. Cardiovascular Instability: No. Correct patient, site and procedure confirmed by cath team. Current diagnosis: Unstable angina. PERRLA. Strong, equal hand tray server bilaterally. Lungs clear x 5 lobes. IV Site on Arrival: 20 gauge in the right anticubital. IV Fluids: 0.9% NaCl at KVO. 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 Pre Procedural Pulses: bilateral posterior tibial was 1+. Pre Procedural Pulses: bilateral dorsalis pedis was 1+. Pre Procedural Pulses: bilateral radial was 1+. Oxygen started at 3liters/min via nasal canula. bilateral groins was prepped with chloroprep then draped in the usual sterile fashion. Baseline sample Acquired. HR: 81 BPM. Physician notified. Physician arrived. Physician scrubbed in. Family updated by MD prior to the start of the procedure. Immediate Pre-Procedure Time Out. Correct Patient: Yes; Correct Procedure: Yes; Correct Site: Yes; Correct Patient Position: Yes; Correct Supplies: Yes; Dried Flammable Prep: Yes; Blood Products Available: N/A;. Current Diagnosis : Unstable angina. Lidocaine 1% infiltrated to the right groin. Patient was pre treated for contrast allergy with PO predisone and benadryl. Arterial access obtained. Side port of sheath attached to Normal Saline flush at KVO to maintain patency. A 5 [place] JL4 catheter in over wire. Multiple views taken of left coronary artery. Catheter removed over the exchange wire. A 5 [place] JR4 catheter in over wire. Multiple views taken of right coronary artery. Physician review of films. Catheter removed over the exchange wire. 6 [place] XB 3 guide catheter was inserted over the wire. Guide seated in the LCS. Runthrough guidewire was advanced through the guide catheter to lesion in the diaganol. Guidewire advanced across lesion. 2.0X12 TREK INSERTED. NO CROSS. REMOVED OVER THE WIRE. Inflation number : 1 A AB MINI TREK 1.50X6 RX BALLOON was prepped and advanced across the 1st Diag , then inflated to 12 MARCIO for 0:11 seconds. Inflation number: 2 The AB MINI TREK 1.50X6 RX BALLOON was reinflated across the 1st Diag, to 12 MARCIO for 0:12 seconds. Inflation number: 3 The AB MINI TREK 1.50X6 RX BALLOON was reinflated across the 1st Diag, to 16 MARCIO for 0:13 seconds. Inflation number: 4 The AB MINI TREK 1.50X6 RX BALLOON was reinflated across the 1st Diag, to 12 MARCIO for 0:18 seconds. Inflation number: 5 The AB MINI TREK 1.50X6 RX BALLOON was reinflated across the 1st Diag, to 12 MARCIO for 0:08 seconds. Balloon out. Results checked. Results checked. Inflation number : 6 A AB MINI TREK 2.00X12 RX BALLOON was prepped and advanced across the 1st Diag , then inflated to 10 MARCIO for 0:09 seconds. Inflation number: 7 The AB MINI TREK 2.00X12 RX BALLOON was reinflated across the 1st Diag, to 10 MARCIO for 0:09 seconds. Inflation number: 8 The AB MINI TREK 2.00X12 RX BALLOON was reinflated across the 1st Diag, to 10 MARCIO for 0:11 seconds. Balloon out. Results checked. ACT drawn. Results 279 seconds. Therapeutic limits - pre-heparin administration 90-150 seconds and monitoring heparin during a vascular procedure >250 seconds. Inflation number : 9 A AB MINI TREK 1.50X8 RX BALLOON was prepped and advanced across the 1st Diag , then inflated to 12 MARCIO for 0:11 seconds. Balloon out. Results checked. Results checked. Inflation number : 10 A AB MINI TREK 2.00X8 RX BALLOON was prepped and advanced across the 1st Diag , then inflated to 12 MARCIO for 0:08 seconds. Inflation number: 11 The AB MINI TREK 2.00X8 RX BALLOON was reinflated across the 1st Diag, to 2 MARCIO for 0:08 seconds. Balloon out. Results checked. Wire out. Guide catheter out. Physician review of films. [id number]. Right groin cleaned with Chloraprep by . A Angio-Seal VIP ([facility]) was successful obtaining hemostatsis at the Right Femoral artery insertion site. Angioseal placed without complications. No signs or symptoms of hematoma noted. Sterile dressing applied per usual sterile fashion. lot [id number] exp 12/27/2025. Post Procedure: Pulses reassessed and unchanged. PERRLA. Strong, equal hand tray server bilaterally. No VTE prophylaxis required. Medication's Wasted: Lidocaine 1% = 10 ml , Nitro = 49.6 mg. Total IV fluids: 75 mL. Fluoro: 9:07. Contrast type used: Visipaque 320 mgI/mL, 200 mL bottle. Post-op diagnosis: Patient prior stents; Unsuccessful attempt to balloon the diagonal lesion. Complications: None. Estimated blood loss: 5mL-10mL. Responsiveness - Normal response to verbal stimuli; alert and oriented, PERRLA. Airway - Unaffected, no intervention required; spontaneous ventilation. Circulation: W/N/L, pulses unchanged. Nausea/Vomiting: No. Procedure completed. Patient transferred by bed to 1st floor. Vital chart was stopped. Access Site Site: Right Femoral artery Sheath Size: 6 Fr Hemostasis Method: Angio-Seal VIP ([facility]) Hemostasis Success: Successful Procedure Medications Start: 8:17 AM Stop: 8:17 AM Medication: Versed Amount: 2 mg Route: I.V. Start: 8:18 AM Stop: 8:18 AM Medication: Zofran (ondansetron) Amount: 4 mg Route: I.V. Start: 8:01 AM Stop: 8:01 AM Medication: Fentanyl Amount: 50 mcg Route: I.V. Start: 8:32 AM Stop: 8:32 AM Medication: Fentanyl Amount: 25 mcg Route: I.V. Start: 8:36 AM Stop: 8:36 AM Medication: Fentanyl Amount: 25 mcg Route: I.V. Start: 8:40 AM Stop: 8:40 AM Medication: Versed Amount: 1 mg Route: I.V. Start: 8:56 AM Stop: 8:56 AM Medication: Heparin Amount: 7000 units Route: I.V. Start: 9:11 AM Stop: 9:11 AM Medication: Fentanyl Amount: 50 mcg Route: I.V. Start: 9:12 AM Stop: 9:12 AM Medication: Nitrogylcerin Amount: 200 mcg Route: I.C. Start: 9:18 AM Stop: 9:18 AM Medication: Versed Amount: 1 mg Route: I.V. Start: 9:20 AM Stop: 9:20 AM Medication: Nitrogylcerin Amount: 200 mcg Route: I.C. I, the attending physician, have reviewed and verified all procedure medications. Yes, all medications given per verbal order History/Risk Factors Hypertension: Yes Dyslipidemia: Yes Peripheral Arterial Disease (PAD): No Myocardial Infarction (PA): No Obesity: No Renal Disease: No Tobacco Use: Former Prior Interventions PCI: Yes CABG: No Valve Surgery: No Date of PCI: 09/13/2018 Report Signatures Finalized by Shelley Rivera MD on 06/04/2025 10:00 PM
--- NOTE | 2025-05-12 08:21 | W.PM.OPSUD ---
Surgery/Procedure H&P Update DATE OF PROCEDURE: May 12, 2025 DATE H&P PERFORMED: 04/24/25 H&P UPDATE INFORMATION: I have reviewed H&P completed within last 30 days, I have examined patient prior to procedure and No changes to prior documentation PREOP DIAGNOSIS: Unstable angina PRIMARY INDICATION FOR PROCEDURE: Unstable angina History of coronary artery disease and prior intervention PLANNED PROCEDURE: Operation Date: 05/12/25 07:00 Proposed Procedures p Cardiac Catheterization - C w/wo LV & Coros(Left) - Shelley Rivera MD PATIENT REASSESSED PRIOR TO SEDATION, WITH NO CHANGE NOTED: Yes PHYSICAL EXAM: alert, clear to auscultation bilaterally, regular rate & rhythm and operative site marked AIRWAY EVAL/ANESTHESIA PLAN: ASA II, Risks, benefits & alternatives of sedation and/or procedure discussed and Patient agrees to continue as planned ADDITIONAL INFORMATION: Patient has been explained all risk-benefit and already for the procedure. Patient understand 2% risk of stroke major bleed. Patient understand 5% risk of minor bleeding oozing infection hematoma contrast-induced nephropathy vascular or urgent CT surgery. Patient understood and would like to proceed with it.
--- NOTE | 2025-05-12 09:41 | P.PCN_ITS ---
Procedure Note: Date of procedure: 05/12/25 Pre-procedure diagnosis: Unstable angina Post-procedure diagnosis: same Procedure: Left heart cath was performed due to worsening of chest pain despite optimization of medicine Left main: No significant disease LAD has luminal irregularity without significant Diagonal branch is a small caliber vessel but long vessel it has mid high-grade calcified subtotally occluded stenosis it is a culprit vessel LCx has luminal irregularity patent prior stent RCA has patent previously placed stent with mild in-stent restenosis otherwise no significant stenosis Percutaneous angioplasty of the diagonal branch (patient with history of chest pain, we were able to cross with wire however it was very difficult to cross with even 1.5 balloon. We performed multiple balloon angioplasty with 1.5 balloon, we were not able to cross with 2.0 balloon due to highly calcified nature of the lesion in the small caliber vessel. Suboptimal result was noted at the end of the case however it has improved somewhat the lesion. Overall no complication noted. MACRINA-3 flow was noted at the end of the case. Plan: Optimize medical management add Ranexa IV fluid: Continue IV fluid 100 mL/h for next 4 hours Bedrest for next 4 hours since patient right common femoral artery was Angio- Seal. Discharge after 4 hours on Ranexa including home medications Ranexa dose will be 500 mg p.o. twice daily Follow up with Dr. Rivera in 6 to 8 weeks. Full note to be dictated Coding Level of Care Code Acute Code for Serena Malin
[2025-05-12] MEDS: ranolazine (12HR) 500 mg Tablet PO (10:42)
--- NOTE | 2025-05-12 13:30 | PC.NURSE ---
3 hour post angio seal up . NO changes in amount of drainage noted on dressing. No hematoma or bruising noted. Pt up out of bed to bathroom. She was able to urinate. NO dizziness or chest pain noted. Pt to sit in chair at bedside.
--- NOTE | 2025-05-12 16:35 | PC.NURSE ---
Discharge instructions provided and discussed. Follow-up appts provided. New prescription to [facility] pharmacy. All questions answered. Pt discharged home.
== END 2025-05-12 16:35 | disposition home or self-care (01) ==
LOC: CCL 06:02 → ICU 09:44
PROVIDERS: PCP Nurse Practitioner Family; Visit Provider Internal Medicine Cardiovascular Disease
DX: I25.118 Atherosclerotic heart disease of native coronary artery with other forms of angina pectoris (principal); I11.0 Hypertensive heart disease with heart failure; I50.30 Unspecified diastolic (congestive) heart failure; E78.5 Hyperlipidemia, unspecified; Z87.891 Personal history of nicotine dependence; Z79.82 Long term (current) use of aspirin; Z79.84 Long term (current) use of oral hypoglycemic drugs; M79.7 Fibromyalgia
CPT/HCPCS: 36415; 85347; 92920; 93454; 96374; 99152; 99153; C1725; C1760; C1769; C1887; C1894; G0269; J1644; J2250; J2405; J3010; J3490; J7030; J9999; Q9967

== ENCOUNTER 2025-05-15 20:08 | Emergency (ER) | payer MEDICAID, SELFPAY ==
[2025-05-15 20:12] VITALS: BP 150/90; PULSE 81; RESP 17; TEMP 36.5; O2SAT 97
--- OUTSIDE RECORDS SUMMARY | 2025-05-15 20:16 | XMS_ITS | Encounter Summary ---
Author Organization [facility] Address [address] [place] [address] Care Team Providers Care Last Model Maker Name Role Phone Felecia Roberts DO Primary Care Provide r Unavailable Encounter Details Date Type Department Care Team (Late st Contact Info) Description 09/08/2004 Inpatient Historical HIS IN BED Gab Donald MD [address] [place] [address] CHEST PAIN NEC (Primary Dx) Social History Tobacco Use Types Packs/Day Years Used Date Smoking Tobacco: Never Assessed Comments Unknown Sex and Gender Information Value Date Recorded Sex Assigned at Not on file Legal Sex Female 5:54 AM CREATIVE ARTS THERAPIST Gender Identity Not on file Sexual Orientation Not on file documented as of this encounter Plan of Treatment Not on file documented as of this encounter Procedures Procedure Name Priority Date/Time Associated Diagnosis Comments CARDIAC ENZYMES Routine 09/08/2004 10:22 PM CREATIVE ARTS THERAPIST CARDIAC ENZYMES Routine 09/08/2004 4:42 PM CREATIVE ARTS THERAPIST CARDIAC ENZYMES Routine 09/08/2004 10:30 AM CREATIVE ARTS THERAPIST CBC WITH DIFFERENTIAL Routine 09/08/2004 10:30 AM CREATIVE ARTS THERAPIST PTT Routine 09/08/2004 10:30 AM CREATIVE ARTS THERAPIST PROTIME-INR Routine 09/08/2004 10:30 AM CREATIVE ARTS THERAPIST D-DIMER Routine 09/08/2004 10:30 AM CREATIVE ARTS THERAPIST BASIC METABOLIC PANEL Routine 09/08/2004 10:30 AM CREATIVE ARTS THERAPIST documented in this encounter Results * CARDIAC ENZYMES (09/08/2004 10:22 PM CREATIVE ARTS THERAPIST) CKMB <0.7 0.0 - 5.5 ng/mL INTERFACE SYSTEM TROPONIN I 0.0 0.0 - 1.5 ng/mL INTERFACE SYSTEM Comment: Expected Range: Normal 0.0 - 1.5 ng/ml Borderline 1.6 - 4.4 ng/ml Positive > = 4.5 ng/ml 09/08/2004 10:2 2 PM CREATIVE ARTS THERAPIST us Nito Kirkland MD CHEMISTRY ORDERABLES Final Res ult Performing Organization Address [facility] Phone Number INTERFACE SYSTEM Refer to clinic/hospital department * CARDIAC ENZYMES (09/08/2004 4:42 PM CREATIVE ARTS THERAPIST) CKMB <0.7 0.0 - 5.5 ng/mL INTERFACE SYSTEM TROPONIN I 0.0 0.0 - 1.5 ng/mL INTERFACE SYSTEM Comment: Expected Range: Normal 0.0 - 1.5 ng/ml Borderline 1.6 - 4.4 ng/ml Positive > = 4.5 ng/ml 09/08/2004 4:42 PM CREATIVE ARTS THERAPIST us Nito Kirkland MD CHEMISTRY ORDERABLES Final Res ult Performing Organization Address [facility] Phone Number INTERFACE SYSTEM Refer to clinic/hospital department * D-DIMER (09/08/2004 10:30 AM CREATIVE ARTS THERAPIST) D-DIMER QUANT 0.3 0.0 - 0.5 mcg/mL INTERFACE SYSTEM 09/08/2004 10:3 0 AM CREATIVE ARTS THERAPIST us Nito Kirkland MD HEMATOLOGY ORDERABLES Final Re sult Performing Organization Address [facility] Phone Number INTERFACE SYSTEM Refer to clinic/hospital department * (ABNORMAL) CBC WITH DIFFERENTIAL (09/08/2004 10:30 AM CREATIVE ARTS THERAPIST) Pathologist [facility] WBC 10.4 4.5 - 11.0 K/ul INTERFACE SYSTEM RBC 5.06 4.20 - 5.40 Mil/ul INTERFACE SYSTEM HEMOGLOBIN 16.9(H) 12.0 - 16.0 g/dL INTERFACE SYSTEM HEMATOCRIT 48.9(H) 36.0 - 46.0 % INTERFACE SYSTEM MCV 96.6 84.0 - 103.0 Fl INTERFACE SYSTEM MCH 33.4 27.0 - 34.0 pg INTERFACE SYSTEM MCHC 34.6 30.0 - 35.0 g/dL INTERFACE SYSTEM RDW 12.5 11.0 - 14.5 percent(i nactive) INTERFACE SYSTEM PLATELETS 314 140 - 440 K/ul INTERFACE SYSTEM MPV 10.7 8.9 - 12.8 Fl INTERFACE SYSTEM NEUTROPHILS 54.7 42.2 - 75.2 percent(i nactive) INTERFACE SYSTEM LYMPHOCYTES 36.3 24.0 - 44.0 percent(i nactive) INTERFACE SYSTEM MONOCYTES 6.4 2.0 - 10.0 percent(i nactive) INTERFACE SYSTEM EOSINOPHILS 1.7 0.0 - 7.0 % INTERFACE SYSTEM BASOPHILS 0.9 0.0 - 1.0 percent(i nactive) INTERFACE SYSTEM NEUTROPHIL ABSOLUTE 5.7 2.0 - 8.0 K/uL INTERFACE SYSTEM LYMPHOCYTE ABSOLUTE 3.8 1.2 - 4.0 K/ul INTERFACE SYSTEM MONOCYTE ABSOLUTE 0.7(H) 0.1 - 0.6 K/ul INTERFACE SYSTEM EOSINOPHIL ABSOLUTE 0.2 0.0 - 0.7 K/ul INTERFACE SYSTEM BASOPHILS ABSOLUTE 0.1 0.0 - 0.2 K/ul INTERFACE SYSTEM PERIPHERAL BLOOD SMEAR REVIEW Automated Diff INTERFACE SYSTEM 09/08/2004 10:3 0 AM CREATIVE ARTS THERAPIST Nito Kirkland MD HEMATOLOGY ORDERABLES Final Re sult INTERFACE SYSTEM Refer to clinic/hospital department * PTT (09/08/2004 10:30 AM CREATIVE ARTS THERAPIST) Pathologist [facility] PTT 33.2 24.3 - 37.5 Secs INTERFACE SYSTEM Comment:Therapeutic Range: 09/08/2004 10:3 0 AM CREATIVE ARTS THERAPIST us Nito Kirkland MD HEMATOLOGY ORDERABLES Final Re sult Performing Organization Address [facility] Phone Number INTERFACE SYSTEM Refer to clinic/hospital department * PROTIME-INR (09/08/2004 10:30 AM CREATIVE ARTS THERAPIST) PROTIME 12.8 12.4 - 14.9 Secs INTERFACE SYSTEM Comment: As of 04 note change in normal range. INR 0.9 INTERFACE SYSTEM Comment: Expected Values for INR: DVT/PE Goal INR 2.5; range 2.0 - 3.0 Valve Replacement Tissue Goal INR 2.5; range 2.0 - 3.0 Mechanical Goal INR 3.0; range 2.5 - 3.5 POST-TN Goal INR 2.5; range 2.0 - 3.0 or Goal 3.0; range 2.5 - 3.5 Atrial Fibrillation Goal INR 2.5; range 2.0 - 3.0 Ischemic Stroke Goal INR 2.5; range 2.0 - 3.0 For additional information see Guidelines for Anticoagulation available from the pharmacy Tea Amaral, Pharm D. 09/08/2004 10:3 0 AM CREATIVE ARTS THERAPIST Nito Kirkland MD HEMATOLOGY ORDERABLES Final Re sult Performing Organization Address [facility] Phone Number INTERFACE SYSTEM Refer to clinic/hospital department * BASIC METABOLIC PANEL (09/08/2004 10:30 AM CREATIVE ARTS THERAPIST) GLUCOSE 75 70 - 110 mg/dL INTERFACE SYSTEM BUN 8 7 - 17 mg/dL INTERFACE SYSTEM CREATININE 0.7 0.7 - 1.2 mg/dL (inactive) INTERFACE SYSTEM SODIUM 143 136 - 145 mEq/L INTERFACE SYSTEM POTASSIUM 3.9 3.5 - 5.0 mEq/L INTERFACE SYSTEM CHLORIDE 108 95 - 110 mEq/L INTERFACE SYSTEM CO2 26 22 - 32 mmol/l INTERFACE SYSTEM ANION GAP 13 9 - 20 mEq/L INTERFACE SYSTEM OSMOLALITY, CALCULATED 290 275 - 295 mOsm/Kg INTERFACE SYSTEM CALCIUM 9.7 8.4 - 10.5 mg/dL INTERFACE SYSTEM 09/08/2004 10:3 0 AM CREATIVE ARTS THERAPIST Nito Kirkland MD CHEMISTRY ORDERABLES Final Res ult Performing Organization Address City/State/[facility] Co de Phone Number INTERFACE SYSTEM Refer to clinic/hospital department * CARDIAC ENZYMES (09/08/2004 10:30 AM CREATIVE ARTS THERAPIST) CKMB 0.7 0.0 - 5.5 ng/mL INTERFACE SYSTEM TROPONIN I 0.0 0.0 - 1.5 ng/mL INTERFACE SYSTEM Comment: Expected Range: Normal 0.0 - 1.5 ng/ml Borderline 1.6 - 4.4 ng/ml Positive > = 4.5 ng/ml 09/08/2004 10:3 0 AM CREATIVE ARTS THERAPIST us Nito Kirkland MD CHEMISTRY ORDERABLES Final Res ult Performing Organization Address [facility] Phone Number INTERFACE SYSTEM Refer to clinic/hospital department documented in this encounter Visit Diagnoses Diagnosis Other chest pain- Primary documented in this encounter Care Teams Last Model Maker Relationship Specialty Start Date End Date Felecia Roberts DO PCP - General Family Practice 06/11/11 documented as of this encounter
--- OUTSIDE RECORDS SUMMARY | 2025-05-15 20:16 | XMS_ITS | Clinical Summary ---
Author Organization [facility] Address [address] [facility] Attn: Epic Prelude ADT GENOVEVA OSWALDRUTHIE DUQUE [address] Care Team Providers Care Carroting Machine Operator Name Role Phone Felecia Roberts DO Primary Care Provide r Unavailable Allergies No known active allergies Active Problems Problem Noted Date Diagnosed Date Generalized anxiety disorder 06/19/2008 Hyperlipemia Insomnia GERD (gastroesophageal reflux disease) Moderate major depression Chronic pain Fibromyalgia Postmenopausal HRT (hormone replacement therapy) Family History Medical History Relation Name Comments Hypertension Brother 1 Arthritis-osteo Father Cancer Mother Hypertension Mother Migraines Mother Heart Failure Paternal Grandmother Hypertension Sister 1 Breast Cancer Neg Hx Relation Name Status Comments Brother 1 Brother 2 Alive Brother 3 Alive Father Alive Mother age 51 Paternal Grandmother Sister 1 Sister 2 Alive Sister 3 Alive Social History Tobacco Use Types Packs/Day Years Used Date Smoking Tobacco: Former Cigarettes Q uit: 01/03/2005 Smokeless Tobacco: Never Alcohol Use Standard Drinks/Week Comments Yes 1.7 (1 standard drink = 0.6 oz p ure alcohol) Comments Unknown Sex and Gender Information Value Date Recorded Sex Assigned at Not on file Legal Sex Female 8:34 AM REHAB TECH Gender Identity Not on file Sexual Orientation Not on file Plan of Treatment Health Maintenance Due Date Last Done Comments DTAP/TDAP/TD VACCINES (1 - Tdap) 1979 HPV/Cotest (21-29) 1981 CERVICAL CANCER SCREENING 1990 HPV/Cotest (30-65) 1990 PAP SMEAR 1990 COLORECTAL SCREENING 2005 Colorectal Cancer Screening 2005 FIT-DNA Q 3 years 2005 FIT/FOBT Q 1 year 2005 Flex Sig/CT Colonography Q 5 years 2005 ZOSTER VACCINE (1 of 2) 2010 BREAST CANCER SCREENING 03/01/2013 03/01/2012 INFLUENZA VACCINE (#1) 2025 RSV VACCINE (60+ or ) (1 - 1-dose 75+ series) 2035 Procedures Procedure Name Priority Date/Time Associated Diagnosis Comments MAMMO SCRN BILAT MOBILE W OR WO CAD Routine 03/01/2012 9:27 AM CDT Other screening mammogram from Last 3 Months or Most Recently Relevant to Health Maintenance Results * MAMMO SCRN BILAT MOBILE W OR WO CAD (03/01/2012 9:27 AM CDT) Anatomical Region Laterality Modality Breast Bilateral Other Narrative 03/02/2012 3:01 PM CDT SCREENING MAMMOGRAM: 03/01/2012 Bilateral craniocaudal and oblique views show predominantly fatty-replaced breasts. Comparison is made with the most recent prior exam of 04/13/2007. The patient states that she has a soft mass in the right axilla which she has had for years . However, I reviewed the clinic notes of 12/24/2011 which indicate that there is a soft tender squishy mass palpable in the right axilla measuring 3 cm. The patient stated to her doctor that it had been there for twenty-five years but had gotten larger and more tender in the last six months. The patient will need to return for ultrasound of that area on the right. No mammographic change is seen on the right. No suspicious calcifications are seen. On the left MLO view there is a possible ill-defined nodular density at the midline although I strongly suspect this is superimposed tissue. This digital mammogram was also analyzed by the Computer Aided Detection System (CAD), StickyADS[employer]tv ImageChecker, Version 8.3. CONCLUSION: I would recommend the patient return for right axillary ultrasound. I would also recommend left MLO view and left MLO spot compression view. RICARDO/jaden - uploaded from [employer] - Procedure Note Rosa Flores MD - 10/17/2022 SCREENING MAMMOGRAM: 03/01/2012 Bilateral craniocaudal and oblique views show predominantly fatty-replaced breasts. Comparison is made with the most recent prior exam of 04/13/2007. The patient states that she has a soft mass in the right axilla which she has had for years . However, I reviewed the clinic notes of 12/24/2011 which indicate that there is a soft tender squishy mass palpable in the right axilla measuring 3 cm. The patient stated to her doctor that it had been there for twenty-five years but had gotten larger and more tender in the last six months. The patient will need to return for ultrasound of that area on the right. No mammographic change is seen on the right. No suspicious calcifications are seen. On the left MLO view there is a possible ill-defined nodular density at the midline although I strongly suspect this is superimposed tissue. This digital mammogram was also analyzed by the Computer Aided Detection System (CAD), StickyADS[employer]tv ImageSTEERadscker, Version 8.3. CONCLUSION: I would recommend the patient return for right axillary ultrasound. I would also recommend left MLO view and left MLO spot compression view. KB/eaw - uploaded from [employer] Scribe - us Jeff Diaz CLIENT ANALYST MAMMO ORDERABLES Final Result from Last 3 Months or Most Recently Relevant to Health Maintenance Care Teams Carroting Machine Operator Relationship Specialty Start Date End Date Felecia Roberts DO NO ADDRESS ON FILE PCP - General Family Practice 06/11/11
--- OUTSIDE RECORDS SUMMARY | 2025-05-15 20:16 | XMS_ITS | Encounter Summary ---
Author Organization [facility] Address [address] [place] [address] Care Team Providers Care Weapons Mechanic Name Role Phone Felecia Roberts DO Primary Care Provide r Unavailable Reason for Referral * Outpatient Services (Routine) - Closed Specialty Diagnoses / Procedures Referred By Itz vargas Referred To Contact Diagnoses Screening for breast cancer Procedures MAMMO DIGITIZED STUDY Jeff Diaz FNP [address] [place] [address] Phone: tel: fax: Referral ID Status Reason Start Date Expiration Date Visits Re quested Visits Authorized [id number] Closed 02/26/2012 02/25/2013 1 1 Encounter Details Date Type Department Care Team (Late st Contact Info) Description 02/26/2012 Ancillary Orders [facility] Family [facility] [place] [facility] [address] [address] [place] [address] Jeff Diaz FNP [address] [place] [address] Screening for breast cancer Social History Tobacco Use Types Packs/Day Years Used Date Smoking Tobacco: Former Cigarettes Q uit: 01/04/2008 Smokeless Tobacco: Never Alcohol Use Standard Drinks/Week Comments Yes 1.7 (1 standard drink = 0.6 oz p ure alcohol) Comments No Sex and Gender Information Value Date Recorded Sex Assigned at Not on file Legal Sex Female 5:54 AM LEGGER PRESS OPERATOR Gender Identity Not on file Sexual Orientation Not on file Occupation Industry Job Start Date Job End Date Not on file Not on file Not on file Not on file documented as of this encounter Plan of Treatment Not on file documented as of this encounter Results * MAMMO DIGITIZED STUDY (04/13/2007 12:41 PM CDT) Narrative Shannan Baltazar - 02/26/2012 12:41 PM CDT Order information only. Exam was auto-finalized. Procedure Note Shnanan Baltazar - 02/26/2012 Order information only. Exam was auto-finalized. Jeff Diaz HAND TACKER DIAGNOSTIC IMAGING ORDERABLES Final Result documented in this encounter Visit Diagnoses Diagnosis Screening for breast cancer Breast screening, unspecified Screening for breast cancer Breast screening, unspecified documented in this encounter Care Teams Weapons Mechanic Relationship Specialty Start Date End Date Felecia Roberts DO PCP - General Family Practice 06/11/11 documented as of this encounter
--- OUTSIDE RECORDS SUMMARY | 2025-05-15 20:16 | XMS_ITS | Encounter Summary ---
Author Organization [facility] Address [address] [place] [address] Care Team Providers Care Training Generalist Name Role Phone Felecia Roberts DO Primary Care Provide r Unavailable Encounter Details Date Type Department Care Team (Late st Contact Info) Description 08/03/2007 Outpatient Historical [facility] [address] [place] [address] Eduardo Hill MD [address] [place] [address] Social History Tobacco Use Types Packs/Day Years Used Date Smoking Tobacco: Never Assessed Comments Unknown Sex and Gender Information Value Date Recorded Sex Assigned at Not on file Legal Sex Female 5:54 AM BEEF GRINDER Gender Identity Not on file Sexual Orientation Not on file documented as of this encounter Plan of Treatment Not on file documented as of this encounter Visit Diagnoses Not on filedocumented in this encounter Care Teams Training Generalist Relationship Specialty Start Date End Date Felecia Roberts DO PCP - General Family Practice 06/11/11 documented as of this encounter
--- OUTSIDE RECORDS SUMMARY | 2025-05-15 20:16 | XMS_ITS | Encounter Summary ---
Author Organization [facility] Address [address] [place] [address] Care Team Providers Care Kettle Skimmer Name Role Phone Felecia Roberts DO Primary Care Provide r Unavailable Encounter Details Date Type Department Care Team (Late st Contact Info) Description 04/13/2007 Outpatient Historical [facility] [address] [facility] [address] [place] [address] Social History Tobacco Use Types Packs/Day Years Used Date Smoking Tobacco: Never Assessed Comments Unknown Sex and Gender Information Value Date Recorded Sex Assigned at Not on file Legal Sex Female 5:54 AM HERBICIDE SERVICE SALES REPRESENTATIVE Gender Identity Not on file Sexual Orientation Not on file documented as of this encounter Plan of Treatment Not on file documented as of this encounter Visit Diagnoses Not on filedocumented in this encounter Care Teams Kettle Skimmer Relationship Specialty Start Date End Date Felecia Roberts DO PCP - General Family Practice 06/11/11 documented as of this encounter
--- OUTSIDE RECORDS SUMMARY | 2025-05-15 20:16 | XMS_ITS | Encounter Summary ---
Author Organization [facility] Address [address] [place] [address] Care Team Providers Care Raw Stock Machine Feeder Name Role Phone Felecia Roberts DO Primary Care Provide r Unavailable Encounter Details Date Type Department Care Team (Late st Contact Info) Description 02/11/2012 Ancillary Orders [facility] [place] [address] [place] [address] Social History Tobacco Use Types Packs/Day Years Used Date Smoking Tobacco: Former Cigarettes Q uit: 01/04/2008 Smokeless Tobacco: Never Alcohol Use Standard Drinks/Week Comments Yes 1.7 (1 standard drink = 0.6 oz p ure alcohol) Comments No Sex and Gender Information Value Date Recorded Sex Assigned at Not on file Legal Sex Female 5:54 AM EXPORT SALES ASSISTANT Gender Identity Not on file Sexual Orientation Not on file Occupation Industry Job Start Date Job End Date Not on file Not on file Not on file Not on file documented as of this encounter Plan of Treatment Not on file documented as of this encounter Procedures Procedure Name Priority Date/Time Associated Diagnosis Comments CBC WITH DIFFERENTIAL Routine 02/11/2012 8:25 AM CDT LIPID PANEL Routine 02/11/2012 8:25 AM CDT COMPREHENSIVE METABOLIC PANEL Routine 02/11/2012 8:25 AM CDT documented in this encounter Results * (ABNORMAL) CBC WITH DIFFERENTIAL (02/11/2012 8:25 AM CDT) WBC 9.8 4.0 - 10.0 K/uL 02/11/2012 11:50 AM CDT [facility] [place] RBC 4.64 3.93 - 5.22 M/uL 02/11/2012 11:50 AM CDT [facility] [place] HEMOGLOBIN 14.9 11.2 - 15.7 g/dL 02/11/2012 11:50 AM CDT [facility] [place] HEMATOCRIT 43.2 34.1 - 44.9 % 02/11/2012 11:50 AM CDT [facility] [place] MCV 93.1 79.4 - 94.8 fL 02/11/2012 11:50 AM CDT [facility] [place] MCH 32.1 25.6 - 32.2 pg 02/11/2012 11:50 AM CDT [facility] [place] MCHC 34.5 32.2 - 35.5 g/dL 02/11/2012 11:50 AM CDT [facility] [place] RDW 13.1 11.0 - 14.5 % 02/11/2012 11:50 AM CDT [facility] [place] RDW-STDEV 43.3 fL 02/11/2012 11:50 AM CDT [facility] [place] PLATELETS 293 163 - 337 K/uL 02/11/2012 11:50 AM CDT [facility] [place] MPV 11.6 10.0 - 14.8 fL 02/11/2012 11:50 AM CDT [facility] [place] NEUTROPHILS 59 34 - 71 % 02/11/2012 11:50 AM CDT [facility] [place] LYMPHOCYTES 30 19 - 52 % 02/11/2012 11:50 AM CDT [facility] [place] MONOCYTES 8 5 - 13 % 02/11/2012 11:50 AM CDT [facility] [place] EOSINOPHILS 2 1 - 6 % 02/11/2012 11:50 AM CDT [facility] [place] BASOPHILS 1 0 - 1 % 02/11/2012 11:50 AM CDT [facility] [place] NEUTROPHIL ABSOLUTE 5.73 1.56 - 6.13 K/uL 02/11/2012 11:50 AM CDT [facility] [place] LYMPHOCYTE ABSOLUTE 2.98 1.20 - 3.40 K/uL 02/11/2012 11:50 AM CDT [facility] [place] MONOCYTE ABSOLUTE 0.79(H) 0.24 - 0.36 K/uL 02/11/2012 11:50 AM CDT [facility] [place] EOSINOPHIL ABSOLUTE 0.23 0.04 - 0.36 K/uL 02/11/2012 11:50 AM CDT [facility] [place] BASOPHILS ABSOLUTE 0.07 0.01 - 0.08 K/uL 02/11/2012 11:50 AM CDT [facility] Blood specimen (specimen) 02/11/2012 8:25 AM CDT 02/11/2012 10:27 AM CDT us Jeff Diaz LIGHT BULB ASSEMBLER HEMATOLOGY ORDERABLES Final R esult [facility] CLIA # [id number] [address] [place] [id number] * (ABNORMAL) COMPREHENSIVE METABOLIC PANEL (02/11/2012 8:25 AM CDT) SODIUM 139 136 - 145 mmol/L 02/11/2012 12:22 PM T [facility] POTASSIUM 3.5 3.5 - 5.1 mmol/L 02/11/2012 12:22 PM [facility] [place] CHLORIDE 102 98 - 107 mmol/L 02/11/2012 12:22 PM T [facility] CO2 28 21 - 32 mmol/L 02/11/2012 12:22 PM T [facility] CALCIUM 9.6 8.5 - 10.1 mg/dL 02/11/2012 12:22 PM T [facility] BUN 13 7 - 18 mg/dL 02/11/2012 12:22 PM T [facility] CREATININE 0.80 0.60 - 1.30 mg/dL 02/11/2012 12:22 PM T [facility] GLUCOSE 70(L) 74 - 106 mg/dL 02/11/2012 12:22 PM T [facility] TOTAL PROTEIN 7.9 6.4 - 8.2 g/dL 02/11/2012 12:22 PM T [facility] ALBUMIN 4.1 3.4 - 5.0 g/dL 02/11/2012 12:22 PM CDT [facility] BILIRUBIN TOTAL 0.6 0.2 - 1.0 mg/dL 02/11/2012 12:22 PM T [facility] ALKALINE PHOSPHATASE 105 50 - 136 U/L 02/11/2012 12:22 PM CDT [facility] AST 27 15 - 37 U/L 02/11/2012 12:22 PM T [facility] ALT 34 30 - 65 U/L 02/11/2012 12:22 PM T [facility] GFR 76 >=60 mL/min/1.7 3 sq meter 02/11/2012 12:22 PM [facility] GFR, 92 >=60 mL/min/1.7 3 sq meter 02/11/2012 12:22 PM [facility] Blood specimen (specimen) 02/11/2012 8:25 AM CDT 02/11/2012 10:27 AM CDT Narrative [facility] - 02/11/2012 12:22 PM CDT eGFR has not been validated for use in the elderly (> 70 years of age), women, patients with serious co-morbid conditions, or persons with extremes of body size or muscle mass and should also be interpreted with caution in patients with acute kidney failure, dialysis dependant patients, patients reporting exceptional dietary intake (e.g. vegetarian diet, high protein diets, creatine supplementation), and patients with severe liver disease. Based on National Kidney Disease Education Program Jeff Diaz [facility] CHEMISTRY ORDERABLES Final Re sult [facility] CLIA # [id number] [address] [address] * (ABNORMAL) LIPID PANEL (02/11/2012 8:25 AM CDT) CHOLESTEROL 236(H) 130 - 200 mg/dL 02/11/2012 12:22 PM T [facility] TRIGLYCERIDE 166 30 - 200 mg/dL 02/11/2012 12:22 PM CDT [facility] HDL 39 35 - 80 mg/dL 02/11/2012 12:22 PM T [facility] LDL CALCULATED 164(H) 0 - 100 mg/dL 02/11/2012 12:22 PM T [facility] Blood specimen (specimen) 02/11/2012 8:25 AM CDT 02/11/2012 10:27 AM CDT Narrative [facility] - 02/11/2012 12:22 PM CDT TOTAL CHOLESTEROL mg/dL Desirable <200 Borderline high 200-239 High >=240 TRIGLYCERIDES mg/dL Normal <150 Borderline high 150-199 High 200-499 Very high >=500 HDL CHOLESTEROL mg/dL Low <40 Normal 40-60 Desirable >60 LDL CHOLESTEROL mg/dL Optimal <100 Low risk 100-129 Borderline high 130-159 High 160-189 Very high >=190 Based on AHA/NCEP Guidelines Jeff Diaz LIGHT BULB ASSEMBLER CHEMISTRY ORDERABLES Final Re sult [facility] CLIA # [id number] [address] [facility] [address] [place] [address] documented in this encounter Visit Diagnoses Not on filedocumented in this encounter Care Teams Raw Stock Machine Feeder Relationship Specialty Start Date End Date Felecia Roberts DO PCP - General Family Practice 06/11/11 documented as of this encounter
--- OUTSIDE RECORDS SUMMARY | 2025-05-15 20:16 | XMS_ITS | Encounter Summary ---
Author Organization [facility] Address [address] [place] [address] Care Team Providers Care Shrimp Packer Name Role Phone Felecia Roberts DO Primary Care Provide r Unavailable Encounter Details Date Type Department Care Team (Late st Contact Info) Description 11/12/2011 Ancillary Orders [facility] Services [place] [address] [place] [id number] Social History Tobacco Use Types Packs/Day Years Used Date Smoking Tobacco: Former Cigarettes Q uit: 01/04/2008 Smokeless Tobacco: Never Alcohol Use Standard Drinks/Week Comments Yes 1.7 (1 standard drink = 0.6 oz p ure alcohol) Comments No Sex and Gender Information Value Date Recorded Sex Assigned at Not on file Legal Sex Female 5:54 AM 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 Gender Identity Not on file Sexual Orientation Not on file Occupation Industry Job Start Date Job End Date Not on file Not on file Not on file Not on file documented as of this encounter Plan of Treatment Not on file documented as of this encounter Procedures Procedure Name Priority Date/Time Associated Diagnosis Comments CBC WITH DIFFERENTIAL Routine 11/12/2011 9:20 AM CDT TSH Routine 11/12/2011 9:20 AM CDT IRON LEVEL Routine 11/12/2011 9:20 AM CDT HEMOGLOBIN A1C Routine 11/12/2011 9:20 AM CDT FERRITIN Routine 11/12/2011 9:20 AM CDT COMPREHENSIVE METABOLIC PANEL Routine 11/12/2011 9:20 AM CDT documented in this encounter Results * (ABNORMAL) CBC WITH DIFFERENTIAL (11/12/2011 9:20 AM CDT) WBC 9.0 4.0 - 10.0 K/uL 11/12/2011 1:09 PM CDT [facility] [place] RBC 4.87 3.93 - 5.22 M/uL 11/12/2011 1:09 PM CDT [facility] [place] HEMOGLOBIN 15.6 11.2 - 15.7 g/dL 11/12/2011 1:09 PM CDT [facility] [place] HEMATOCRIT 45.0(H) 34.1 - 44.9 % 11/12/2011 1:09 PM CDT [facility] [place] MCV 92.4 79.4 - 94.8 fL 11/12/2011 1:09 PM CDT [facility] [place] MCH 32.0 25.6 - 32.2 pg 11/12/2011 1:09 PM CDT [facility] [place] MCHC 34.7 32.2 - 35.5 g/dL 11/12/2011 1:09 PM CDT [facility] [place] RDW 12.8 11.0 - 14.5 % 11/12/2011 1:09 PM CDT [facility] [place] RDW-STDEV 42.4 fL 11/12/2011 1:09 PM CDT [facility] [place] PLATELETS 320 163 - 337 K/uL 11/12/2011 1:09 PM CDT [facility] [place] MPV 11.5 10.0 - 14.8 fL 11/12/2011 1:09 PM CDT [facility] [place] NEUTROPHILS 55 34 - 71 % 11/12/2011 1:09 PM CDT [facility] [place] LYMPHOCYTES 34 19 - 52 % 11/12/2011 1:09 PM CDT [facility] [place] MONOCYTES 8 5 - 13 % 11/12/2011 1:09 PM CDT [facility] [place] EOSINOPHILS 2 1 - 6 % 11/12/2011 1:09 PM CDT [facility] [place] BASOPHILS 1 0 - 1 % 11/12/2011 1:09 PM CDT [facility] [place] NEUTROPHIL ABSOLUTE 5.00 1.56 - 6.13 K/uL 11/12/2011 1:09 PM CDT [facility] LYMPHOCYTE ABSOLUTE 3.08 1.20 - 3.40 K/uL 11/12/2011 1:09 PM CDT [facility] MONOCYTE ABSOLUTE 0.70(H) 0.24 - 0.36 K/uL 11/12/2011 1:09 PM CDT [facility] EOSINOPHIL ABSOLUTE 0.18 0.04 - 0.36 K/uL 11/12/2011 1:09 PM CDT [facility] [place] [facility] BASOPHILS ABSOLUTE 0.07 0.01 - 0.08 K/uL 11/12/2011 1:09 PM CDT [facility] Blood specimen (specimen) 11/12/2011 9:20 AM CDT 11/12/2011 11:28 AM CDT Jeff Diaz SENIOR BUSINESS DEVELOPMENT MANAGER HEMATOLOGY ORDERABLES Final R esult [facility] MD[employer] [facility] CLIA # [id number] [address] [place] [address] * (ABNORMAL) COMPREHENSIVE METABOLIC PANEL (11/12/2011 9:20 AM CDT) SODIUM 141 136 - 145 mmol/L 11/12/2011 4:25 PM CDT [facility] POTASSIUM 3.8 3.5 - 5.1 mmol/L 11/12/2011 4:25 PM CDT [facility] CHLORIDE 102 98 - 107 mmol/L 11/12/2011 4:25 PM CDT [facility] CO2 27 21 - 32 mmol/L 11/12/2011 4:25 PM CDT [facility] CALCIUM 9.4 8.5 - 10.1 mg/dL 11/12/2011 4:25 PM CDT [facility] BUN 10 7 - 18 mg/dL 11/12/2011 4:25 PM CDT [facility] CREATININE 0.80 0.60 - 1.30 mg/dL 11/12/2011 4:25 PM CDT [facility] GLUCOSE 66(L) 74 - 106 mg/dL 11/12/2011 4:25 PM CDT [facility] TOTAL PROTEIN 8.3(H) 6.4 - 8.2 g/dL 11/12/2011 4:25 PM CDT [facility] ALBUMIN 4.3 3.4 - 5.0 g/dL 11/12/2011 4:25 PM CDT [facility] BILIRUBIN TOTAL 0.6 0.2 - 1.0 mg/dL 11/12/2011 4:25 PM T [facility] ALKALINE PHOSPHATASE 102 50 - 136 U/L 11/12/2011 4:25 PM CDT [facility] AST 33 15 - 37 U/L 11/12/2011 4:25 PM T [facility] ALT 42 30 - 65 U/L 11/12/2011 4:25 PM CDT [facility] GFR 76 >=60 mL/min/1.7 3 sq meter 11/12/2011 4:25 PM [facility] GFR, 92 >=60 mL/min/1.7 3 sq meter 11/12/2011 4:25 PM [facility] Blood specimen (specimen) 11/12/2011 9:20 AM CDT 11/12/2011 11:28 AM CDT [facility] - 11/12/2011 4:25 PM CDT eGFR has not been validated [...] supplementation), and patients with severe liver disease. Jeff Diaz SENIOR BUSINESS DEVELOPMENT MANAGER CHEMISTRY ORDERABLES Final Re sult [facility] [employer] [facility] CLIA # [id number] [address] [facility] [address] [place] [address] * TSH (11/12/2011 9:20 AM CDT) TSH 1.20 0.30 - 4.80 uIU/mL 11/12/2011 4:25 PM CDT [facility] Blood specimen (specimen) 11/12/2011 9:20 AM CDT 11/12/2011 11:28 AM CDT Jeff Diaz SENIOR BUSINESS DEVELOPMENT MANAGER CHEMISTRY ORDERABLES Final Re sult Performing Organization Address [facility] de Phone Number [facility] CLIA # [id number] [address] [place] [address] * HEMOGLOBIN A1C (11/12/2011 9:20 AM CDT) Pathologist [facility] HEMOGLOBIN A1C 5.8 4.5 - 6.2 % 11/12/2011 6:48 PM CDT [facility] EST. AVG GLUCOSE, A1C 120 mg/dL 11/12/2011 6:48 PM CDT [facility] Blood specimen (specimen) 11/12/2011 9:20 AM CDT 11/12/2011 11:28 AM CDT Jeff Diaz SENIOR BUSINESS DEVELOPMENT MANAGER CHEMISTRY ORDERABLES Final Re sult Performing Organization Address [facility] Phone Number [facility] CLIA # [id number] [address] [place] [address] * FERRITIN (11/12/2011 9:20 AM CDT) Pathologist [facility] FERRITIN 140.0 8.0 - 252.0 ng/mL 11/12/2011 5:15 PM CDT [facility] Blood specimen (specimen) 11/12/2011 9:20 AM CDT 11/12/2011 11:28 AM CDT Jeff Diaz SENIOR BUSINESS DEVELOPMENT MANAGER CHEMISTRY ORDERABLES Final Re sult [facility] LABORATORY [facility] CLIA # [id number] [address] [address] * IRON LEVEL (11/12/2011 9:20 AM CDT) IRON 104 50 - 170 ug/dL 11/12/2011 5:15 PM CDT [facility] Blood specimen (specimen) 11/12/2011 9:20 AM CDT 11/12/2011 11:28 AM CDT Jeff Diaz SENIOR BUSINESS DEVELOPMENT MANAGER CHEMISTRY ORDERABLES Final Re sult [facility] MDconnectME [facility] CLIA # [id number] [address] [address] documented in this encounter Visit Diagnoses Not on filedocumented in this encounter Care Teams Shrimp Packer Relationship Specialty Start Date End Date Felecia Roberts DO PCP - General Family Practice 06/11/11 documented as of this encounter
--- OUTSIDE RECORDS SUMMARY | 2025-05-15 20:16 | XMS_ITS | Encounter Summary ---
Author Organization [facility] Address [address] [place] [address] Care Team Providers Care Meat Carrier Name Role Phone Felecia Roberts DO Primary Care Provide r Unavailable Encounter Details Date Type Department Care Team (Latest Contact Info) Description 10/15/1998 Outpatient Historical [facility] [place] [phone] Stu David, ELSA NO ADDRESS ON FILE Dental caries (Primary Dx); Unspecified disorder of the teeth and supporting structures; Abnormal hard tissue formation in dental pulp Social History Tobacco Use Types Packs/Day Years Used Date Smoking Tobacco: Never Assessed Comments Unknown Sex and Gender Information Value Date Recorded Sex Assigned at Not on file Legal Sex Female 5:54 AM 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
--- OUTSIDE RECORDS SUMMARY | 2025-05-15 20:16 | XMS_ITS | Encounter Summary ---
Author Organization [facility] Address [address] [place] [address] Care Team Providers Care Oil House Attendant Name Role Phone Felecia Roberts DO Primary Care Provide r Unavailable Encounter Details Date Type Department Care Team (Latest Contact Info) Description 03/02/[address] 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
--- OUTSIDE RECORDS SUMMARY | 2025-05-15 20:16 | XMS_ITS | Encounter Summary ---
Author Organization [facility] Address [address] [place] [address] Care Team Providers Care Bridal Gown Fitter Name Role Phone Felecia Roberts DO Primary Care Provide r Unavailable Reason for Referral * Outpatient Services (Routine) - Closed Specialty Diagnoses / Procedures Referred By Itz t Referred To Contact Diagnoses Other screening mammogram Procedures MAMMO DIGITAL SCREEN BILAT MOBILE Jeff Diaz FNP [address] [place] [address] Phone: tel: fax: Referral ID Status Reason Start Date Expiration Date Visits Re quested Visits Authorized [id number] Closed 03/01/2012 03/01/2013 1 1 Encounter Details Date Type Department Care Team (Latest Contact Info) Description 03/01/2012 Ancillary Orders [facility] [place] [address] [facility] [address] [place] [address] Jeff Diaz FNP [address] [place] [address] Other screening mammogram Social History Tobacco Use Types Packs/Day Years Used Date Smoking Tobacco: Former Cigarettes Q uit: 01/04/2008 Smokeless Tobacco: Never Alcohol Use Standard Drinks/Week Comments Yes 1.7 (1 standard drink = 0.6 oz p ure alcohol) Comments No Sex and Gender Information Value Date Recorded Sex Assigned at Not on file Legal Sex Female 5:54 AM TIRE LAYER Gender Identity Not on file Sexual Orientation Not on file Occupation Industry Job Start Date Job End Date Not on file Not on file Not on file Not on file documented as of this encounter Plan of Treatment Not on file documented as of this encounter Results * MAMMO DIGITAL SCREEN BILAT MOBILE (03/01/2012 9:27 AM CDT) Anatomical Region Laterality Modality Breast Bilateral Mammography 03/01/2012 9:14 AM CDT Narrative 03/02/2012 3:01 PM CDT SCREENING MAMMOGRAM: [...] by the Computer Aided Detection System (CAD), Closely ImageChecker, Version 8.3. CONCLUSION: I would recommend the patient return for right axillary ultrasound. I would also recommend left MLO view and left MLO spot compression view. KB/eaw - uploaded from Power Scribe - Procedure Note Rosa Flores MD - 03/02/2012 SCREENING MAMMOGRAM: 03/01/2012 Bilateral craniocaudal and oblique [...] by the Computer Aided Detection System (CAD), Closely ImageEveryday Solutionscker, Version 8.3. CONCLUSION: I would recommend the patient return for right axillary ultrasound. I would also recommend left MLO view and left MLO spot compression view. KB/eaw - uploaded from [employer] - us Jeff Diaz JIG MILL OPERATOR MAMMO ORDERABLES Final Result documented in this encounter Visit Diagnoses Diagnosis Screening for breast cancer Breast screening, unspecified Other screening mammogram Other screening mammogram documented in this encounter Care Teams Bridal Gown Fitter Relationship Specialty Start Date End Date Felecia Roberts DO PCP - General Family Practice 06/11/11 documented as of this encounter
--- OUTSIDE RECORDS SUMMARY | 2025-05-15 20:16 | XMS_ITS | Encounter Summary ---
Author Organization [facility] Address [address] [place] [address] Care Team Providers Care Granulator Operator Name Role Phone Felecia Roberts DO Primary Care Provide r Unavailable Encounter Details Date Type Department Care Team (Late st Contact Info) Description 06/01/2013 Ancillary Orders [facility] [place] [address] [place] [phone] Social History Tobacco Use Types Packs/Day Years Used Date Smoking Tobacco: Former Cigarettes Q uit: 01/03/2005 Smokeless Tobacco: Never Alcohol Use Standard Drinks/Week Comments Yes 1.7 (1 standard drink = 0.6 oz p ure alcohol) Comments No Sex and Gender Information Value Date Recorded Sex Assigned at Not on file Legal Sex Female 5:54 AM CARD FIXER Gender Identity Not on file Sexual Orientation Not on file Occupation Industry Job Start Date Job End Date Not on file Not on file Not on file Not on file documented as of this encounter Plan of Treatment Not on file documented as of this encounter Procedures Procedure Name Priority Date/Time Associated Diagnosis Comments CBC WITHOUT DIFFERENTIAL Routine 06/01/2013 9:10 AM CDT IRON LEVEL Routine 06/01/2013 9:10 AM CDT FERRITIN Routine 06/01/2013 9:10 AM CDT LIPID PANEL Routine 06/01/2013 9:10 AM CDT COMPREHENSIVE METABOLIC PANEL Routine 06/01/2013 9:10 AM CDT documented in this encounter Results * CBC WITHOUT DIFFERENTIAL (06/01/2013 9:10 AM CDT) Pathologist [facility] WBC 8.7 4.0 - 10.0 K/uL 06/01/2013 3:02 PM CDT [facility] [place] RBC 4.86 3.93 - 5.22 M/uL 06/01/2013 3:02 PM CDT [facility] [place] [place] HEMOGLOBIN 15.2 11.2 - 15.7 g/dL 06/01/2013 3:02 PM CDT [facility] [place] [place] HEMATOCRIT 44.9 34.1 - 44.9 % 06/01/2013 3:02 PM CDT [facility] [place] [place] MCV 92.4 79.4 - 94.8 fL 06/01/2013 3:02 PM CDT [facility] MCH 31.3 25.6 - 32.2 pg 06/01/2013 3:02 PM CDT [facility] [place] MCHC 33.9 32.2 - 35.5 g/dL 06/01/2013 3:02 PM CDT [facility] PLATELETS 316 163 - 337 K/uL 06/01/2013 3:02 PM CDT [facility] MPV 11.6 10.0 - 14.8 fL 06/01/2013 3:02 PM CDT [facility] [place] RDW 13.0 11.0 - 14.5 % 06/01/2013 3:02 PM CDT [facility] [place] RDW-STDEV 43.2 37.0 - 54.0 fL 06/01/2013 3:02 PM CDT [facility] Blood specimen (specimen) Venipuncture - Lab Collect / Unknown 06/01/2013 9:10 AM CDT 06/01/2013 11:56 AM CDT us Jeff SNOWP HEMATOLOGY ORDERABLES Final R esult [facility] CLIA # [id number] 100 [facility] [address] [place] [address] * (ABNORMAL) COMPREHENSIVE METABOLIC PANEL (06/01/2013 9:10 AM CDT) Pathologist [facility] SODIUM 142 136 - 145 mmol/L 06/01/2013 2:49 PM T [facility] [place] POTASSIUM 3.6 3.5 - 5.1 mmol/L 06/01/2013 2:49 PM T [facility] [place] CHLORIDE 103 98 - 107 mmol/L 06/01/2013 2:49 PM T [facility] [place] CO2 27 21 - 32 mmol/L 06/01/2013 2:49 PM T [facility] [place] CALCIUM 9.8 8.5 - 10.1 mg/dL 06/01/2013 2:49 PM T [facility] [place] BUN 11 7 - 18 mg/dL 06/01/2013 2:49 PM [facility] [place] CREATININE 0.60 0.60 - 1.30 mg/dL 06/01/2013 2:49 PM [facility] [place] GLUCOSE 74 74 - 106 mg/dL 06/01/2013 2:49 PM [facility] [place] TOTAL PROTEIN 8.4(H) 6.4 - 8.2 g/dL 06/01/2013 2:49 PM T [facility] [place] ALBUMIN 4.2 3.4 - 5.0 g/dL 06/01/2013 2:49 PM T [facility] [place] BILIRUBIN TOTAL 0.5 0.2 - 1.0 mg/dL 06/01/2013 2:49 PM [facility] [place] [place] ALKALINE PHOSPHATASE 139(H) 50 - 136 U/L 06/01/2013 2:49 PM [facility] [place] AST 27 15 - 37 U/L 06/01/2013 2:49 PM T [facility] [place] ALT 29(L) 30 - 65 U/L 06/01/2013 2:49 PM T [facility] [place] GFR 105 >=60 mL/min/1.7 3 sq meter 06/01/2013 2:49 PM T [facility] [place] Comment: eGFR has not been validated for use [...] Based on National Kidney Disease Education Program GFR, 127 >=60 mL/min/1.7 3 sq meter 06/01/2013 2:49 PM CDT [facility] [employer] [facility] Comment: eGFR has not been validated for use [...] Based on National Kidney Disease Education Program Blood specimen (specimen) Venipuncture - Lab Collect / Unknown 06/01/2013 9:10 AM CDT 06/01/2013 11:56 AM CDT Jeff Diaz BOILERMAKER'S ASSISTANT CHEMISTRY ORDERABLES Final Re sult [facility] [employer] [facility] CLIA # [id number] [address] [place] [address] * (ABNORMAL) LIPID PANEL (06/01/2013 9:10 AM CDT) CHOLESTEROL 297(H) 130 - 200 mg/dL 06/01/2013 2:49 PM CDT [facility] [employer] [facility] TRIGLYCERIDE 224(H) 30 - 200 mg/dL 06/01/2013 2:49 PM CDT [facility] [employer] [facility] HDL 36 35 - 80 mg/dL 06/01/2013 2:49 PM CDT [facility] [employer] [facility] LDL CALCULATED 216(H) 0 - 100 mg/dL 06/01/2013 2:49 PM CDT [facility] [employer] [facility] Blood specimen (specimen) Venipuncture - Lab Collect / Unknown 06/01/2013 9:10 AM CDT 06/01/2013 11:56 AM CDT Narrative [facility] [employer] [facility] - 06/01/2013 2:49 PM CDT TOTAL CHOLESTEROL mg/dL Desirable <200 Borderline high 200-239 High >=240 TRIGLYCERIDES mg/dL Normal <150 Borderline high 150-199 High 200-499 Very high >=500 HDL CHOLESTEROL mg/dL Low <40 Normal 40-60 Desirable >60 LDL CHOLESTEROL mg/dL Optimal <100 Low risk 100-129 Borderline high 130-159 High 160-189 Very high >=190 Based on AHA/NCEP Guidelines Jeff Diaz BOILERMAKER'S ASSISTANT CHEMISTRY ORDERABLES Final Re sult Performing Organization Address [place] Co de Phone Number [facility] CLIA # [id number] [address] [place] [address] * FERRITIN (06/01/2013 9:10 AM CDT) FERRITIN 93.0 8.0 - 252.0 ng/mL 06/01/2013 5:00 PM CDT [facility] Blood specimen (specimen) Venipuncture - Lab Collect / Unknown 06/01/2013 9:10 AM CDT 06/01/2013 11:56 AM CDT Jeff Diaz BOILERMAKER'S ASSISTANT CHEMISTRY ORDERABLES Final Re sult Performing Organization Address [facility] de Phone Number [facility] [employer] [facility] CLIA # [id number] [address] [place] [address] * IRON LEVEL (06/01/2013 9:10 AM CDT) IRON 103 50 - 170 ug/dL 06/01/2013 5:00 PM CDT [facility] [employer] [facility] Blood specimen (specimen) Venipuncture - Lab Collect / Unknown 06/01/2013 9:10 AM CDT 06/01/2013 11:56 AM CDT Jeff Diaz BOILERMAKER'S ASSISTANT CHEMISTRY ORDERABLES Final Re sult Performing Organization Address [place] Co de Phone Number [facility] [employer] [facility] CLIA # [id number] [address] [place] [address] documented in this encounter Visit Diagnoses Not on filedocumented in this encounter Care Teams Granulator Operator Relationship Specialty Start Date End Date Felecia Roberts DO PCP - General Family Practice 06/11/11 documented as of this encounter
--- OUTSIDE RECORDS SUMMARY | 2025-05-15 20:16 | XMS_ITS | Encounter Summary ---
[facility] Organization [facility] Address [address] [place] [address] Care Team Providers Care Kinesiology Professor Name Role Phone Felecia Roberts DO Primary Care Provide r Unavailable Encounter Details Date Type Department Care Team (Late st Contact Info) Description 11/26/2011 Ancillary Orders [facility] [place] [address] [place] [address] Social History Tobacco Use Types Packs/Day Years Used Date Smoking Tobacco: Former Cigarettes Q uit: 01/04/2008 Smokeless Tobacco: Never Alcohol Use Standard Drinks/Week Comments Yes 1.7 (1 standard drink = 0.6 oz p ure alcohol) Comments No Sex and Gender Information Value Date Recorded Sex Assigned at Not on file Legal Sex Female 5:54 AM ACCOUNTING OFFICER Gender Identity Not on file Sexual Orientation Not on file Occupation Industry Job Start Date Job End Date Not on file Not on file Not on file Not on file documented as of this encounter Plan of Treatment Not on file documented as of this encounter Procedures Procedure Name Priority Date/Time Associated Diagnosis Comments LIPID PANEL Routine 11/12/2011 8:40 AM CDT documented in this encounter Results * (ABNORMAL) LIPID PANEL (11/12/2011 8:40 AM CDT) CHOLESTEROL 312(H) 130 - 200 mg/dL 11/26/2011 2:23 PM CDT [facility] [place] TRIGLYCERIDE 121 30 - 200 mg/dL 11/26/2011 2:23 PM CDT [facility] [place] [facility] HDL 41 35 - 80 mg/dL 11/26/2011 2:23 PM CDT [facility] [place] LDL CALCULATED 247(H) 0 - 100 mg/dL 11/26/2011 2:23 PM CDT [facility] Blood specimen (specimen) 11/12/2011 8:40 AM CDT 11/26/2011 2:01 PM CDT Narrative [facility] - 11/26/2011 2:23 PM CDT TOTAL CHOLESTEROL mg/dL Desirable <200 Borderline high 200-239 High >=240 TRIGLYCERIDES mg/dL Normal <150 Borderline high 150-199 High 200-499 Very high >=500 HDL CHOLESTEROL mg/dL Low <40 Normal 40-60 Desirable >60 LDL CHOLESTEROL mg/dL Optimal <100 Low risk 100-129 Borderline high 130-159 High 160-189 Very high >=190 Based on AHA/NCEP Guidelines Jeff Diaz REGISTERED NURSE CARDIOVASCULAR ICU CHEMISTRY ORDERABLES Final Re sult [facility] [employer] [facility] CLIA # [id number] [address] [place] [address] documented in this encounter Visit Diagnoses Not on filedocumented in this encounter Care Teams Kinesiology Professor Relationship Specialty Start Date End Date Felecia Roberts DO PCP - General Family Practice 06/11/11 documented as of this encounter
--- OUTSIDE RECORDS SUMMARY | 2025-05-15 20:16 | XMS_ITS | Encounter Summary ---
Author Organization [employer] [facility] Address [address] [place] [address] Care Team Providers Care Gore Maker Name Role Phone Felecia Roberts DO Primary Care Provide r Unavailable Encounter Details Date Type Department Care Team (Latest Contact Info) Description 04/13/2007 Outpatient Historical [facility] [address] [place] [address] Wellness, Program NO ADDRESS ON FILE Other Screening Mammogram (Primary Dx) Social History Tobacco Use Types Packs/Day Years Used Date Smoking Tobacco: Never Assessed Comments Unknown Sex and Gender Information Value Date Recorded Sex Assigned at Not on file Legal Sex Female 5:54 AM LIFE SCIENCE TEACHER Gender Identity Not on file Sexual Orientation Not on file documented as of this encounter Plan of Treatment Not on file documented as of this encounter Visit Diagnoses Diagnosis Other screening mammogram- Primary documented in this encounter Care Teams Gore Maker Relationship Specialty Start Date End Date Felecia Roberts DO PCP - General Family Practice 06/11/11 documented as of this encounter
--- OUTSIDE RECORDS SUMMARY | 2025-05-15 20:16 | XMS_ITS | Clinical Summary ---
Author Organization [facility] Address [address] [place] [address] Care Team Providers Care Logistics Clerk Name Role Phone Felecia Roberts DO Primary Care Provide r Unavailable Allergies No known active allergies Medications fluconazole (DIFLUCAN) 150 mg tabletIndication s:Vaginal itching Take 1 Tab by mouth daily. 1 tab po today; repeat in 7 days 2 Tab 0 04/14/2014 Active Active Problems Problem Noted Date Diagnosed Date Generalized anxiety disorder 06/19/2008 Hyperlipemia GERD (gastroesophageal reflux disease) Moderate major depression Fibromyalgia Insomnia Chronic pain Postmenopausal HRT (hormone replacement therapy) Family History Medical History Relation Name Comments Hypertension Brother 3 Arthritis-osteo Father Cancer Mother Hypertension Mother Migraines Mother Heart Failure Paternal Grandmother Hypertension Sister 3 Breast Cancer Neg Hx Relation Name Status Comments Brother 1 Alive Brother 2 Alive Brother 3 Father Alive Mother age 51 Paternal Grandmother Sister 1 Alive Sister 2 Alive Sister 3 Social History Tobacco Use Types Packs/Day Years Used Date Smoking Tobacco: Former Cigarettes Q uit: 01/03/2005 Smokeless Tobacco: Never Alcohol Use Standard Drinks/Week Comments Yes 1.7 (1 standard drink = 0.6 oz p ure alcohol) Comments No Sex and Gender Information Value Date Recorded Sex Assigned at Not on file Legal Sex Female 5:54 AM POULTRY BARN MANAGER Gender Identity Not on file Sexual Orientation Not on file Occupation Industry Job Start Date Job End Date Not on file Not on file Not on file Not on file Last Filed Vital Signs Vital Sign Reading Time Taken Comments Blood Pressure 122/76 04/14/2014 1:33 PM CDT Pulse 90 04/14/2014 1:33 PM CDT Temperature 36.8 C (98.3 F) 04/14/2014 1:33 PM CDT Respiratory Rate 17 04/14/2014 1:33 PM CDT Oxygen Saturation 97% 04/14/2014 1:33 PM CDT Inhaled Oxygen Concentration - - Weight 77.6 kg (171 lb) 04/14/2014 1:33 PM CDT Height 157.5 cm (5' 2 ) 04/14/2014 1:33 PM CDT Body Mass Index 31.28 04/14/2014 1:33 PM CDT Plan of Treatment Health Maintenance Due Date [...] Relevant to Health Maintenance Results * MAMMO DIGITAL SCREEN BILAT MOBILE [...] by the Computer Aided Detection System (CAD), R2 ImageChecker, Version 8.3. CONCLUSION: I would recommend the patient return for right axillary ultrasound. I would also recommend left MLO view and left MLO spot compression view. [email or web address] - uploaded from [employer] - Procedure Note Rosa Flores MD - [...] by the Computer Aided Detection System (CAD), R2 ImageSimPrintscker, Version 8.3. CONCLUSION: I would recommend the patient return for right axillary ultrasound. I would also recommend left MLO view and left MLO spot compression view. [email or web address] - uploaded from [employer] - us Jeff Diaz CORONARY CLINICAL SPECIALIST MAMMO ORDERABLES Final Result from Last 3 Months or Most Recently Relevant to Health Maintenance Care Teams Logistics Clerk Relationship Specialty Start Date End Date Felecia Roberts DO PCP - General Family Practice 06/11/11
--- OUTSIDE RECORDS SUMMARY | 2025-05-15 20:16 | XMS_ITS | Encounter Summary ---
Author Organization [facility] Address [address] [place] [address] Care Team Providers Care Note Taker Name Role Phone Felecia Roberts DO Primary Care Provide r Unavailable Encounter Details Date Type Department Care Team (Late st Contact Info) Description 06/02/2012 Ancillary Orders [facility] [place] [address] [place] [id number] Social History Tobacco Use Types Packs/Day Years Used Date Smoking Tobacco: Former Cigarettes Q uit: 01/04/2008 Smokeless Tobacco: Never Alcohol Use Standard Drinks/Week Comments Yes 1.7 (1 standard drink = 0.6 oz p ure alcohol) Comments No Sex and Gender Information Value Date Recorded Sex Assigned at Not on file 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 Gender Identity Not on file Sexual Orientation Not on file Occupation Industry Job Start Date Job End Date Not on file Not on file Not on file Not on file documented as of this encounter Plan of Treatment Not on file documented as of this encounter Procedures Procedure Name Priority Date/Time Associated Diagnosis Comments CBC WITH DIFFERENTIAL Routine 06/02/2012 9:15 AM CDT TSH Routine 06/02/2012 9:15 AM CDT IRON LEVEL Routine 06/02/2012 9:15 AM CDT FERRITIN Routine 06/02/2012 9:15 AM CDT LIPID PANEL Routine 06/02/2012 9:15 AM CDT COMPREHENSIVE METABOLIC PANEL Routine 06/02/2012 9:15 AM CDT documented in this encounter Results * (ABNORMAL) CBC WITH DIFFERENTIAL (06/02/2012 9:15 AM CDT) WBC 9.3 4.0 - 10.0 K/uL 06/02/2012 12:20 PM CDT [facility] [place] RBC 4.79 3.93 - 5.22 M/uL 06/02/2012 12:20 PM CDT [facility] [place] HEMOGLOBIN 15.1 11.2 - 15.7 g/dL 06/02/2012 12:20 PM CDT [facility] [place] HEMATOCRIT 43.9 34.1 - 44.9 % 06/02/2012 12:20 PM CDT [facility] [place] MCV 91.6 79.4 - 94.8 fL 06/02/2012 12:20 PM CDT [facility] [place] MCH 31.5 25.6 - 32.2 pg 06/02/2012 12:20 PM CDT [facility] [place] MCHC 34.4 32.2 - 35.5 g/dL 06/02/2012 12:20 PM CDT [facility] [place] RDW 12.9 11.0 - 14.5 % 06/02/2012 12:20 PM CDT [facility] [place] RDW-STDEV 42.6 37.0 - 54.0 fL 06/02/2012 12:20 PM CDT [facility] [place] PLATELETS 256 163 - 337 K/uL 06/02/2012 12:20 PM CDT [facility] [place] MPV 12.6 10.0 - 14.8 fL 06/02/2012 12:20 PM CDT [facility] [place] NEUTROPHILS 59 34 - 71 % 06/02/2012 12:20 PM CDT [facility] [place] LYMPHOCYTES 30 19 - 52 % 06/02/2012 12:20 PM CDT [facility] [place] MONOCYTES 8 5 - 13 % 06/02/2012 12:20 PM CDT [facility] [place] EOSINOPHILS 3 1 - 6 % 06/02/2012 12:20 PM CDT [facility] [place] BASOPHILS 1 0 - 1 % 06/02/2012 12:20 PM CDT [facility] [place] NEUTROPHIL ABSOLUTE 5.45 1.56 - 6.13 K/uL 06/02/2012 12:20 PM CDT [facility]AT[facility] [place] LYMPHOCYTE ABSOLUTE 2.73 1.20 - 3.40 K/uL 06/02/2012 12:20 PM CDT [facility] [place] MONOCYTE ABSOLUTE 0.73(H) 0.24 - 0.36 K/uL 06/02/2012 12:20 PM CDT [facility] [place] EOSINOPHIL ABSOLUTE 0.28 0.04 - 0.36 K/uL 06/02/2012 12:20 PM CDT [facility] [place] BASOPHILS ABSOLUTE 0.07 0.01 - 0.08 K/uL 06/02/2012 12:20 PM CDT [facility] [place] Blood specimen (specimen) 06/02/2012 9:15 AM CDT 06/02/2012 11:13 AM CDT Jeff Diaz MEDICINE ASSISTANT HEMATOLOGY ORDERABLES Final R esult [facility] CLIA # [id number] [address] [place] [address] * (ABNORMAL) COMPREHENSIVE METABOLIC PANEL (06/02/2012 9:15 AM CDT) SODIUM 138 136 - 145 mmol/L 06/02/2012 1:35 PM CDT [facility] [place] POTASSIUM 4.0 3.5 - 5.1 mmol/L 06/02/2012 1:35 PM CDT [facility] [place] CHLORIDE 103 98 - 107 mmol/L 06/02/2012 1:35 PM CDT [facility] [place] CO2 21 21 - 32 mmol/L 06/02/2012 1:35 PM CDT [facility] [place] CALCIUM 9.8 8.5 - 10.1 mg/dL 06/02/2012 1:35 PM CDT [facility] [place] BUN 10 7 - 18 mg/dL 06/02/2012 1:35 PM CDT [facility] CREATININE 0.70 0.60 - 1.30 mg/dL 06/02/2012 1:35 PM CDT [facility] GLUCOSE 65(L) 74 - 106 mg/dL 06/02/2012 1:35 PM CDT [facility] TOTAL PROTEIN 7.8 6.4 - 8.2 g/dL 06/02/2012 1:35 PM CDT [facility] ALBUMIN 4.0 3.4 - 5.0 g/dL 06/02/2012 1:35 PM CDT [facility] BILIRUBIN TOTAL 0.5 0.2 - 1.0 mg/dL 06/02/2012 1:35 PM CDT [facility] ALKALINE PHOSPHATASE 111 50 - 136 U/L 06/02/2012 1:35 PM CDT [facility] AST 35 15 - 37 U/L 06/02/2012 1:35 PM CDT [facility] ALT 37 30 - 65 U/L 06/02/2012 1:35 PM CDT [facility] GFR 88 >=60 mL/min/1.7 3 sq meter 06/02/2012 1:35 PM T [facility] GFR, 107 >=60 mL/min/1.7 3 sq meter 06/02/2012 1:35 PM [facility] Blood specimen (specimen) 06/02/2012 9:15 AM CDT 06/02/2012 11:13 AM CDT Narrative [facility] - 06/02/2012 1:35 PM CDT eGFR has not been validated [...] Based on National Kidney Disease Education Program us Jeff Diaz MEDICINE ASSISTANT CHEMISTRY ORDERABLES Final Re sult [facility] [employer] [facility] CLIA # [id number] [address] [place] [address] * TSH (06/02/2012 9:15 AM CDT) TSH 1.75 0.30 - 4.80 uIU/mL 06/02/2012 1:35 PM CDT [facility] [employer] [facility] Blood specimen (specimen) 06/02/2012 9:15 AM CDT 06/02/2012 11:13 AM CDT Jeff Diaz [facility] CHEMISTRY ORDERABLES Final Re sult Performing Organization Address [facility] de Phone Number [facility] [employer] [facility] CLIA # [id number] [address] [place] [address] * (ABNORMAL) LIPID PANEL (06/02/2012 9:15 AM CDT) CHOLESTEROL 241(H) 130 - 200 mg/dL 06/02/2012 1:35 PM CDT [facility] [employer] [facility] TRIGLYCERIDE 237(H) 30 - 200 mg/dL 06/02/2012 1:35 PM CDT [facility] [employer] [facility] HDL 34(L) 35 - 80 mg/dL 06/02/2012 1:35 PM CDT [facility] [employer] [facility] LDL CALCULATED 160(H) 0 - 100 mg/dL 06/02/2012 1:35 PM CDT [facility] [employer] [facility] Blood specimen (specimen) 06/02/2012 9:15 AM CDT 06/02/2012 11:13 AM CDT Narrative [facility] [employer] [facility] - 06/02/2012 1:35 PM CDT TOTAL CHOLESTEROL mg/dL Desirable <200 Borderline high 200-239 High >=240 TRIGLYCERIDES mg/dL Normal <150 Borderline high 150-199 High 200-499 Very high >=500 HDL CHOLESTEROL mg/dL Low <40 Normal 40-60 Desirable >60 LDL CHOLESTEROL mg/dL Optimal <100 Low risk 100-129 Borderline high 130-159 High 160-189 Very high >=190 Based on AHA/NCEP Guidelines Jeff Diaz MEDICINE ASSISTANT CHEMISTRY ORDERABLES Final Re sult [facility] [employer] [facility] CLIA # [id number] [address] [place] [address] * FERRITIN (06/02/2012 9:15 AM CDT) FERRITIN 94.0 8.0 - 252.0 ng/mL 06/02/2012 2:38 PM CDT [facility] Blood specimen (specimen) 06/02/2012 9:15 AM CDT 06/02/2012 11:13 AM CDT Jeff Diaz MEDICINE ASSISTANT CHEMISTRY ORDERABLES Final Re sult Performing Organization Address [facility] Co de Phone Number [facility] CLIA # [id number] [address] [place] [address] * IRON LEVEL (06/02/2012 9:15 AM CDT) IRON 108 50 - 170 ug/dL 06/02/2012 2:38 PM CDT [facility] Blood specimen (specimen) 06/02/2012 9:15 AM CDT 06/02/2012 11:13 AM CDT Jeff Cohen Diaz MEDICINE ASSISTANT CHEMISTRY ORDERABLES Final Re sult Performing Organization Address [facility] Co de Phone Number [facility] CLIA # [id number] [address] [place] [address] documented in this encounter Visit Diagnoses Not on filedocumented in this encounter Care Teams Note Taker Relationship Specialty Start Date End Date Felecia Roberts DO PCP - General Family Practice 06/11/11 documented as of this encounter
--- NOTE | 2025-05-15 20:31 | XRR_ITS ---
PROCEDURE INFORMATION: Exam: XR Chest Exam date and time: 05/15/2025 8:35 PM Age: 64 years old Clinical indication: Chest pressure and sternal or substernal pain; Prior surgery; Surgery date: 3-7 days post-operative; Surgery type: Angioplasty 05/12/25, HX of prior coronary stent placement; Additional info: Chest pain TECHNIQUE: Imaging protocol: Radiologic exam of the chest. Views: 1 view. COMPARISON: CT chest ION (PULM ONLY) [id number] 04/20/2025 5:21 PM FINDINGS: Lungs: Unremarkable. No consolidation. Pleural spaces: Unremarkable. No pleural effusion. No pneumothorax. Heart/Mediastinum: Unremarkable. No cardiomegaly. Bones/joints: Unremarkable. XR/XR chest 1V portable [id number] IMPRESSION: No acute findings.
--- NOTE | 2025-05-15 20:31 | ECG_ITS ---
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 Measurements Intervals [place] Rate: 73 P: 36 CA: 156 QRS: -4 QRSD: 85 T: 14 QT: 379 QTc: 420 Interpretive Statements SINUS RHYTHM POSSIBLE ANTERIOR MYOCARDIAL INFARCTION , PROBABLY OLD [30 ms Q WAVE IN V3/V4, OR R < 0.2 mV IN V4] Compared to ECG 12/13/2024 09:45:13 Myocardial infarct finding now present Electronically Signed On 05-18-2025 08:46:22 CDT by Saturnino Mijares M.D. [email or web address]
[2025-05-15 20:41] LABS: Hematocrit 41.4 % (36-47); Hemoglobin 13.80 g/dL (11.27-16.99); Mean Corpuscular HGB Conc 33.3 g/dL (30-55); Mean Corpuscular Hemoglobin 30.4 pg (27-33); Mean Corpuscular Volume 91.2 fl (85-98); Nucleated Red Blood Cells % 0 %; Platelet Count 287 10^3/cmm (157-399); Red Blood Count 4.54 10^6/uL (3.85-5.65); White Blood Count 10.56 10^3/uL (3.29-11.43)
[2025-05-15 20:59] LABS: Troponin(5th) Baseline 14 ng/L (0-10)
[2025-05-15 21:16] LABS: Alanine Aminotransferase 18 U/L (0-33); Albumin Level 4.3 g/dL (3.5-5.2); Alkaline Phosphatase 75 U/L (35-105); Anion Gap 18.1 (5-19); Aspartate Amino Transferase 25 U/L (0-32); Blood Urea Nitrogen 12 mg/dL (8-23); Calcium 9.9 mg/dL (8.5-10.5); Carbon Dioxide 23 mmol/L (22-29); Chloride 105 mmol/L (98-107); Creatinine Clr Calc Pharmacy 78.0640; Globulin 2.5 g/dL (1.3-4.6); Glucose 124 mg/dL (65-115); NT Pro B Type Natriuretic Pept 71 pg/mL (0-125); Osmolality Calculated 295 mOsm/kg (285-295); Potassium 4.1 mmol/L (3.5-5.1); Sodium 142 mmol/L (136-145); Total Protein 6.8 g/dL (6.6-8.7)
[2025-05-15 21:43] VITALS: BP 144/121; PULSE 79; O2SAT 96
[2025-05-15 22:22] VITALS: BP 132/96; PULSE 70; O2SAT 97
[2025-05-15 22:25] VITALS: RESP 15; O2SAT 97
[2025-05-15] MEDS: oxyCODONE-APAP 5-325 mg Tablet 1 TAB PO (22:25)
--- NOTE | 2025-05-16 00:37 | W.ED.CHESTPA ---
HPI - Chest Pain General: Chief Complaint: Chest Pain Stated Complaint: Post Surgery\Chest Pains Time Seen by Provider: 05/15/25 20:31 History of Present Illness: 64 yo F with history of exertional angina and recent cardiac catheterization 4 days ago for a distal LAD lesion presents with new constant chest pain and mid-back pain since the procedure. Pain is deep, pressure-like, located mid-sternum and between shoulder blades, not affected by palpation, movement, deep breathing, or exertion. Patient typically has angina only with exertion; now pain occurs at rest. Reports extensive bruising at catheter site. Called cardiology (Dr. Parkinson) and was advised to come to ER. Denies prior complications with multiple prior catheterizations. ROS per discussion: no distress; denies symptoms suggestive of hemodynamic instability. Troponin reported as normal; EKG interpreted by provider: sinus rhythm 73, no ST changes, QTc 405. Patient is allergic to iodinated contrast and requires steroid premedication. Ranolazine recently started; patient wonders if pain could be related. Related Data Home Medications ?Medication ?Instructions ?Recorded ?Confirmed aspirin 81 mg tablet,delayed 81 mg PO DAILY 12/19/19 05/11/25 release (Adult Low Dose Aspirin) fenofibrate 150 mg capsule 145 mg PO DAILY 03/26/23 05/11/25 metformin 500 mg tablet 500 mg PO DAILY 02/02/24 05/11/25 biotin 1,000 mcg chewable tablet 1,000 mcg PO DAILY 11/08/24 05/11/25 ezetimibe 10 mg tablet 10 mg PO DAILY 02/14/25 05/11/25 diphenhydramine HCl 25 mg tablet 25 mg PO DIRECTED PRN allergy 04/18/25 05/11/25 (Benadryl Allergy) symptoms Previous Rx's ?Medication ?Instructions ?Recorded nitroglycerin 0.4 mg sublingual 0.4 mg sublingual Q5M PRN chest 02/02/24 tablet pain #25 tabs pantoprazole 40 mg tablet,delayed 40 mg PO BID 1 month #60 tabs 05/25/24 release (Protonix) losartan 50 mg tablet 50 mg PO DAILY #30 tabs 08/04/24 clopidogrel 75 mg tablet See Rx Instructions .Route 11/14/24 .COMPLEX #90 tabs metoprolol succinate 25 mg 25 mg PO DAILY #90 tabs 11/14/24 tablet,extended release 24 hr furosemide 20 mg tablet 20 mg PO DAILY #90 tabs 03/29/25 potassium chloride 10 mEq 10 meq PO DAILY #90 tabs 03/29/25 tablet,extended release prednisone 50 mg tablet 50 mg PO DIRECTED PRN allergic 05/08/25 reaction #3 tabs ranolazine 500 mg tablet,extended 500 mg PO BID #180 tabs 05/12/25 release,12 hr oxycodone-acetaminophen 5 mg-325 1 tab PO Q8H PRN pain #14 tabs 05/15/25 mg tablet (Percocet) Allergies Allergy/AdvReac Type Severity Reaction Status Date / Time shellfish derived Allergy Unknown Unknown Verified 05/15/25 20:20 isosorbide AdvReac Severe ADR-Headach Verified 05/15/25 20:20 e iodine AdvReac Unknown ALGY-Hives Verified 05/15/25 20:20 PFSH ED PFSH: Medical History (Updated 05/15/25 @ 22:[address] MD) Pulmonary nodule, left Pulmonary nodule, right Diastolic heart failure Shortness of breath Hyperlipidemia Fibromyalgia HTN (hypertension) CAD (coronary artery disease) Surgical History S/P hysterectomy S/P carpal tunnel release H/O oral surgery H/O section Hx of heart artery stent Family History Mother Cancer Other Heart disease Hodgkins disease Hypertension Social History Smoking and tobacco/nicotine status: former use of tobacco/nicotine (2ppd X 28 years quit in 2004) Quit status (tobacco/nicotine): has quit using Year quit tobacco: 2004 - 2PPD x 30 Years Second hand smoke exposure: No Alcohol intake: never Substance/Drug Use: never Lives independently: Yes Household members: significant other Marital status: Life Partner Current occupational status: unemployed Do you think of yourself as: Straight/Heterosexual Current gender identity: Female Physical Exam Const: COMMON NORMALS: no acute distress, patient oriented x3 and alert HENMT: COMMON NORMALS: normocephalic and atraumatic HEAD & SCALP: normocephalic and atraumatic Eye: COMMON NORMALS: Equal, round and reactive pupils present, EOMs intact bilaterally and no scleral icterus PUPIL: Yes Equal, round and reactive pupils present Chest: OTHER: Chest pain not reproducible with palpation or deep inspiration. Neither his back pain reproducible with palpation or motion of the thorax. Resp: COMMON NORMALS: normal respiratory effort and No retractions Cardio: COMMON NORMALS: regular rate, regular rhythm and No murmurs present (Cardio) RATE: regular rate RHYTHM: regular rhythm GI: COMMON NORMALS: Normal to inspection, nondistended, normoactive bowel sounds present, Soft to palpation and non-tender PALPATION: Yes Soft to palpation Neuro: COMMON NORMALS: patient oriented x3 SENSORIUM/ORIENTATION: Yes alert Skin: COMMON NORMALS: no rashes or lesions noted GENERAL SKIN EXAM: no rashes or lesions noted Course Vital Signs: Vital signs: Vital Signs Temperature 97.7 F 05/15/25 20:12 Pulse Rate 70 05/15/25 22:22 Respiratory Rate 15 05/15/25 22:25 Blood Pressure 132/96 05/15/25 22:22 Pulse Oximetry 97 05/15/25 22:25 Oxygen Delivery Me thod Room Air 05/15/25 21:43 MDM - Chest Pain Medical Decision Making 64 yo F with history of exertional angina now has constant chest and mid-back pain after recent catheterization for distal LAD lesion; pain is deep and non-positional, not reproducible. PE: no distress; chest and back pain not reproducible. Troponin normal. EKG at 20:15 interpreted by provider: sinus 73, no ST elevation/depression, no T-wave inversions, QTc 405. No imaging completed. considered post-catheterization complications including coronary dissection or vessel injury and abdominal bleeding, judged less likely given normal troponin, reassuring EKG, stable vitals, and clinical presentation. Lesion itself not thought to explain constant rest pain. Plan discussed: options include admission for contrast CT after steroid premedication or discharge with analgesia and close follow-up; patient prefers conservative approach. Single dose analgesic now; optional short course prescription sent to local pharmacy. Message to Dr. Parkinson to consider earlier follow-up; return for worsening or persistent pain for CT despite contrast allergy. Lab Data 05/15/25 20:35 05/15/25 20:35 Radiology Impressions Chest X-Ray 05/15/25 20:31 IMPRESSION: No acute findings. Laboratory Results WBC 10.56 10^3/uL (3.29-11.43) 05/15/25 20:35 RBC 4.54 10^6/uL (3.85-5.65) 05/15/25 20:35 Hgb 13.80 g/dL (11.27-16.99) 05/15/25 20:35 Hct 41.4 % (36-47) 05/15/25 20:35 MCV 91.2 fl (85-98) 05/15/25 20:35 MCH 30.4 pg (27-33) 05/15/25 20:35 MCHC 33.3 g/dL (30-55) 05/15/25 20:35 RDW 12.8 % (12.1-15.1) 05/15/25 20:35 Plt Count 287 10^3/cmm (157-399) 05/15/25 20:35 MPV 11.1 fL (7.4-10.4) H 05/15/25 20:35 Neut % (Auto) 52.8 % 05/15/25 20:35 Lymph % (Auto) 33.3 % 05/15/25 20:35 [place] % (Auto) 10.0 % 05/15/25 20:35 Eos % (Auto) 2.5 % 05/15/25 20:35 Baso % (Auto) 1.0 % 05/15/25 20:35 Neut # (Auto) 5.57 10^3/uL (1.8-7.7) 05/15/25 20:35 Lymph # (Auto) 3.5 10^3/uL (0.8-4.8) 05/15/25 20:35 [place] # (Auto) 1.1 10^3/uL (0.2-0.9) H 05/15/25 20:35 Eos # (Auto) 0.3 10^3/uL (0.0-0.8) 05/15/25 20:35 Baso # (Auto) 0.1 10^3/uL (0.0-0.1) 05/15/25 20:35 Nucleated RBC % (auto) 0 % 05/15/25 20:35 Nucleated RBCs # 0.0 /100WBC 05/15/25 20:35 Sodium 142 mmol/L (136-145) 05/15/25 20:35 Potassium 4.1 mmol/L (3.5-5.1) 05/15/25 20:35 Chloride 105 mmol/L (98-107) 05/15/25 20:35 Carbon Dioxide 23 mmol/L (22-29) 05/15/25 20:35 Anion Gap 18.1 (5-19) 05/15/25 20:35 BUN 12 mg/dL (8-23) 05/15/25 20:35 Creatinine 0.7 mg/dL (0.5-0.9) 05/15/25 20:35 GFR Calculation 84.2 mL/min (90-130) L 05/15/25 20:35 Glucose 124 mg/dL (65-115) H 05/15/25 20:35 Calculated Osmolality 295 mOsm/kg (285-295) 05/15/25 20:35 Calcium 9.9 mg/dL (8.5-10.5) 05/15/25 20:35 Total Bilirubin 0.3 mg/dL (0.15-1.2) 05/15/25 20:35 AST 25 U/L (0-32) 05/15/25 20:35 ALT 18 U/L (0-33) 05/15/25 20:35 Alkaline Phosphatase 75 U/L (35-105) 05/15/25 20:35 Troponin T Baseline 14 ng/L (0-10) H 05/15/25 20:35 NT-Pro-B Natriuret Pep 71 pg/mL (0-125) 05/15/25 20:35 Total Protein 6.8 g/dL (6.6-8.7) 05/15/25 20:35 Albumin 4.3 g/dL (3.5-5.2) 05/15/25 20:35 Globulin 2.5 g/dL (1.3-4.6) 05/15/25 20:35 All radiology interpretation(s) finalized by discharge Discharge Plan Discharge Patient Disposition: Home Clinical Impression: Chest pain, Acute thoracic back pain Condition: Stable Prescriptions: New oxycodone-acetaminophen [Percocet] 5-325 mg tablet 1 tab PO Q8H PRN (Reason: pain) Qty: 14 0RF No Action aspirin [Adult Low Dose Aspirin] 81 mg tablet,delayed release (DR/EC) 81 mg PO DAILY fenofibrate 150 mg capsule 145 mg PO DAILY metformin 500 mg tablet 500 mg PO DAILY nitroglycerin 0.4 mg tablet, sublingual 0.4 mg sublingual Q5M PRN (Reason: chest pain) Qty: 25 2RF Rx Instructions: do not exceed 3 doses per episode losartan 50 mg tablet 50 mg PO DAILY Qty: 30 6RF biotin 1,000 mcg tablet,chewable 1,000 mcg PO DAILY ezetimibe 10 mg tablet 10 mg PO DAILY diphenhydramine HCl [Benadryl Allergy] 25 mg tablet 25 mg PO DIRECTED PRN (Reason: allergy symptoms) Rx Instructions: Take 50mg (2tabs) one hour prior to procedure. prednisone 50 mg tablet 50 mg PO DIRECTED PRN (Reason: allergic reaction) Qty: 3 0RF Rx Instructions: Take one tab 13 hrs, 7 hrs, and 1 hr prior to procedure. pantoprazole [Protonix] 40 mg tablet,delayed release (DR/EC) 40 mg PO BID 30 Days Qty: 60 12RF clopidogrel 75 mg tablet See Rx Instructions .ROUTE .COMPLEX Qty: 90 3RF Dose Instruction: Take 1 tablet by mouth once daily Rx Instructions: Take 1 tablet by mouth once daily metoprolol succinate 25 mg tablet extended release 24 hr 25 mg PO DAILY Qty: 90 3RF Rx Instructions: Take 1 tablet by mouth once daily potassium chloride 10 mEq tablet extended release 10 meq PO DAILY Qty: 90 3RF Rx Instructions: Take 1 tablet by mouth once daily furosemide 20 mg tablet 20 mg PO DAILY Qty: 90 3RF Rx Instructions: Take 1 tablet by mouth once daily ranolazine 500 mg tablet extended release 12 hr 500 mg PO BID Qty: 180 3RF Discharge Orders: Discharge ED (Routine); Ordered 05/15/25 Ordered By: Lane Hector Referrals: Angela Kerr, GRAPE CUTTER [Primary Care Provider, Nurse Practitioner] Discharge Diet: Advance as tolerated Discharge Activity: Increase activity as tolerated Patient Instructions: Chest Pain (ED), Patient Portal & Levi Instructions Activity Restrictions/Additional Instructions: Your EKG and blood test are reassuring with no evidence of internal bleeding, new damage to heart, or new heart attack causing your pain. If symptoms persist or get worse you are always welcome back to the emergency department to consider getting a CT scan of the chest and other further tests, but this is not necessary at this time. Please take Percocet as needed for the pain. Print Language: Icelandic Coding Level of Care Code ED Computer Aided Design Designer for Serena Malin
== END 2025-05-15 22:28 | disposition home or self-care (01) ==
PROVIDERS: Emergency Provider Student in an Organized Health Care Education/Training Program; PCP Nurse Practitioner Family
DX: R07.9 Chest pain, unspecified (principal); M54.6 Pain in thoracic spine; Z79.82 Long term (current) use of aspirin; Z79.02 Long term (current) use of antithrombotics/antiplatelets; Z87.891 Personal history of nicotine dependence; I11.0 Hypertensive heart disease with heart failure; I50.30 Unspecified diastolic (congestive) heart failure; I25.10 Atherosclerotic heart disease of native coronary artery without angina pectoris; Z98.890 Other specified postprocedural states; E78.5 Hyperlipidemia, unspecified
CPT/HCPCS: 36415; 71045; 80053; 83880; 84484; 85025; 93005; 99285; J9999

== ENCOUNTER 2025-06-26 06:03 | Day surgery (SDC) | payer MEDICAID, SELFPAY ==
[2025-06-26 06:18] VITALS: BP 148/98; PULSE 98; RESP 18; TEMP 36.6; O2SAT 94; BMI 31.1
--- NOTE | 2025-06-26 06:20 | ECG_ITS ---
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 Measurements Intervals [place] Rate: 87 P: 35 [place]: 160 QRS: -15 QRSD: 85 T: 20 QT: 394 QTc: 476 Interpretive Statements SINUS RHYTHM POSSIBLE LEFT ATRIAL ENLARGEMENT [-0.1mV P-WAVE IN V1/V2] LOW QRS VOLTAGE IN PRECORDIAL LEADS [QRS DEFLECTION < 1.0 mV IN CHEST LEADS] MINIMAL ST DEPRESSION [0.025+ mV ST DEPRESSION] Compared to ECG 05/15/2025 20:15:18 Low QRS voltage now present ST (T wave) deviation now present Myocardial infarct finding no longer present Electronically Signed On 06-26-2025 18:14:55 RAILWAY STATION MANAGER by Ruben Dumont M.D. [email or web address]
--- NOTE | 2025-06-26 07:06 | W.PM.OPSFHP ---
Same Day Surgery H&P Indication for Procedure/HPI DATE OF PROCEDURE: June 26, 2025 CHIEF COMPLAINT/INDICATIONFOR SURGICAL PROCEDURE: abnormal PET scan PREOP DIAGNOSIS: abnormal PET scan PLANNED PROCEDURE: Operation Date: 06/26/25 07:00 Proposed Procedures p Colonoscopy 80519 G0121 Z12.11(Not Applicable) - Gilbert Albert MD Medications/Allergies* Home Medications ?Medication ?Instructions ?Recorded ?Confirmed ?Type aspirin 81 mg tablet,delayed 81 mg PO DAILY 12/19/19 06/21/25 History release (Adult Low Dose Aspirin) fenofibrate 150 mg capsule 145 mg PO DAILY 03/26/23 06/21/25 History metformin 500 mg tablet 500 mg PO DAILY 02/02/24 06/21/25 History ezetimibe 10 mg tablet 10 mg PO DAILY 02/14/25 06/21/25 History diphenhydramine HCl 25 mg tablet 25 mg PO DIRECTED PRN allergy 04/18/25 06/21/25 History (Benadryl Allergy) symptoms clopidogrel 75 mg tablet 75 mg PO DAILY 06/20/25 06/21/25 History biotin 5,000 mcg chewable tablet 5,000 mcg PO DAILY 06/21/25 06/21/25 History Allergies/Adverse Reactions Allergy/AdvReac Type Severity Reaction Status Date / Time shellfish derived Allergy Unknown Unknown Verified 06/21/25 13:25 isosorbide AdvReac Severe ADR-Headach Verified 06/21/25 13:25 e iodine AdvReac Unknown ALGY-Hives Verified 06/21/25 13:25 Current Medications: Generic Name Dose Route Start Last Admin Trade Name Freq PRN Reason Stop Dose Admin Sodium Chloride 1,000 mls @ 15 mls/hr 06/26/25 06:07 06/26/25 06:31 Sodium Chloride 0.9% IV 06/27/25 06:06 15 mls/hr .Q24H PRN Administration COLONOSCOPY FLUIDS Pertinent History/Comorbid Conditions* Medical History (Updated 06/20/25 @ 19:03 by Caroline Don) Pulmonary nodule, left Pulmonary nodule, right Diastolic heart failure Shortness of breath Hyperlipidemia Fibromyalgia HTN (hypertension) CAD (coronary artery disease) Surgical History (Updated 06/30/22 @ 11:13 by Gen Lin MD) S/P hysterectomy S/P carpal tunnel release H/O oral surgery H/O section Hx of heart artery stent Family History (Updated 12/19/19 @ 14:05 by Ines Dunlap RN) Hodgkins disease Heart disease Cancer Mother Hypertension Social History Smoking and tobacco/nicotine status: former use of tobacco/nicotine Quit status (tobacco/nicotine): has quit using Year quit tobacco: 2004 - 2PPD x 30 Years Second hand smoke exposure: No Alcohol intake: never Substance/Drug Use: never Lives independently: Yes Household members: significant other Marital status: Life Partner Current occupational status: unemployed Do you think of yourself as: Straight/Heterosexual Current gender identity: Female Pertinent Exam Findings alert, oriented x 3, clear to auscultation bilaterally, regular rate & rhythm and procedure specific exam findings abdomen soft, nt, nd Recommendations Risks and benefits of procedure reviewed and Patient/family agree to proceed Surgery/Procedure today Coding Level of Care Code Acute Code for Chg Kimo
--- NOTE | 2025-06-26 07:06 | ANES.PREANE2 ---
Pre-Anesthetic Assessment Height/Weight: Height 1.57 m Weight 77.111 kg Temp Pulse Resp BP Pulse Ox O2 Del Method 97.9 F 98 18 148/98 94 Room Air 06/26/25 06:18 06/26/25 06:18 06/26/25 06:18 06/26/25 06:18 06/26/25 06:18 06/26/25 06:18 Preop Diagnosis: Mass on PET scan Operation Date: 06/26/25 07:00 Proposed Procedures p Colonoscopy 10123 G0121 Z12.11(Not Applicable) - Gilbert Albert MD Was Beta Amos taken within 24 hours: Yes Was Clonidine taken within 24 hours: N/A Last intake: Intake Last Liquid Date 06/25/25 Last Liquid Time 20:00 Last Solid Date 06/24/25 Last Solid Time 12:00 Social No alcohol and No tobacco Exam alert, oriented x 3, clear to auscultation bilaterally and regular rate & rhythm Airway Submandibular: within normal limits Cervical ROM: within normal limits Mallampati: Class II Dentition: full History/ROS No significant history except as noted and No significant complaints Pulmonary Chronic Obstructive Pulmonary Disease Pulmonary nodules CV/HEM Coronary Artery Disease and Hypertension Cardiomyopathy> Recent stent None reported Hepatic None reported GI None reported Metabolic Diabetes Mellitus and Hyperlipidemia [facility] Osteoarthritis/DJD Neuropsych Anxiety Anesthetic Plan ASA status: 3 Anesthesia: Anesthesia Evaluation and MAC Risk of > 500 ml blood loss (7ml/kg in children): No Medications/Allergies Home Medications ?Medication ?Instructions ?Recorded ?Confirmed ?Last Taken ?Type aspirin 81 mg tablet,delayed 81 mg PO DAILY 12/19/19 06/21/25 06/20/25 History release (Adult Low Dose Aspirin) fenofibrate 150 mg capsule 145 mg PO DAILY 03/26/23 06/21/25 06/20/25 History metformin 500 mg tablet 500 mg PO DAILY 02/02/24 06/21/25 06/24/25 History nitroglycerin 0.4 mg sublingual 0.4 mg sublingual Q5M PRN chest 02/02/24 06/21/25 3 Weeks Ago Rx tablet pain #25 tabs ~04/18/24 losartan 50 mg tablet 50 mg PO DAILY #30 tabs 08/04/24 06/21/25 06/20/25 Rx metoprolol succinate 25 mg 25 mg PO DAILY #90 tabs 11/14/24 06/21/25 06/26/25 04:55 Rx tablet,extended release 24 hr ezetimibe 10 mg tablet 10 mg PO DAILY 02/14/25 06/21/25 06/20/25 History furosemide 20 mg tablet 20 mg PO DAILY #90 tabs 03/29/25 06/21/25 06/20/25 Rx potassium chloride 10 mEq 10 meq PO DAILY #90 tabs 03/29/25 06/21/25 06/20/25 Rx tablet,extended release diphenhydramine HCl 25 mg tablet 25 mg PO DIRECTED PRN allergy 04/18/25 06/21/25 05/12/25 04:30 History (Benadryl Allergy) symptoms pantoprazole 40 mg tablet,delayed 40 mg PO BID 1 month #60 tabs 06/12/25 06/21/25 06/26/25 04:55 Rx release (Protonix) clopidogrel 75 mg tablet 75 mg PO DAILY 06/20/25 06/21/25 06/20/25 History biotin 5,000 mcg chewable tablet 5,000 mcg PO DAILY 06/21/25 06/21/25 06/20/25 History Allergies Allergy/AdvReac Type Severity Reaction Status Date / Time shellfish derived Allergy Unknown Unknown Verified 06/21/25 13:25 isosorbide AdvReac Severe ADR-Headach Verified 06/21/25 13:25 e iodine AdvReac Unknown ALGY-Hives Verified 06/21/25 13:25 Current Medications Generic Name Dose Route Start Last Admin Trade Name Freq PRN Reason Stop Dose Admin Sodium Chloride 1,000 mls @ 15 mls/hr 06/26/25 06:07 06/26/25 06:31 Sodium Chloride 0.9% IV 06/27/25 06:06 15 mls/hr .Q24H PRN Administration COLONOSCOPY FLUIDS PFSH Anesthesia Medical History (Updated 06/20/25 @ 19:03 by Caroline Don) Pulmonary nodule, left Pulmonary nodule, right Diastolic heart failure Shortness of breath Hyperlipidemia Fibromyalgia HTN (hypertension) CAD (coronary artery disease) Surgical History S/P hysterectomy S/P carpal tunnel release H/O oral surgery H/O section Hx of heart artery stent Family History Mother Cancer Other Heart disease Hodgkins disease Hypertension Social History Smoking and tobacco/nicotine status: former use of tobacco/nicotine Quit status (tobacco/nicotine): has quit using Year quit tobacco: 2005 - 2PPD x 30 Years Second hand smoke exposure: No Alcohol intake: never Substance/Drug Use: never Lives independently: Yes Household members: significant other Marital status: Life Partner Current occupational status: unemployed Do you think of yourself as: Straight/Heterosexual Current gender identity: Female Data Anesthesia Cardiac Studies: Echocardiogram 12/13/24 Cardiac Event Monitor 11/08/24
[2025-06-26 07:33] VITALS: BP 131/91; PULSE 75; RESP 16; TEMP 36.2; O2SAT 98
[2025-06-26 07:40] VITALS: BP 124/93; PULSE 75; RESP 16; O2SAT 99
--- NOTE | 2025-06-26 08:05 | ANE.PACU2 ---
Inpatient post-anesthesia follow up: Airway intact: Yes Vital signs: Temperature 97.2 F Pulse Rate 75 Respiratory Rate 16 Blood Pressure 124/93 Pulse Oximetry 99 Oxygen Delivery Me thod Room Air Oxygen Flow Rate Fraction of Inspir ed Oxygen Hydration adequate: Yes Nausea and vomiting: No Pain level: 1 Mental status: Baseline
== END 2025-06-26 08:05 | disposition home or self-care (01) ==
PROVIDERS: PCP Nurse Practitioner Family; Visit Provider Student in an Organized Health Care Education/Training Program
PROC: 0DJD8ZZ Inspection of Lower Intestinal Tract, Via Natural or Artificial Opening Endoscopic (ICD-10-PCS; CPT 45378; principal; 2025-06-26 07:00)
DX: R93.89 Abnormal findings on diagnostic imaging of other specified body structures (principal); Z79.82 Long term (current) use of aspirin; Z79.84 Long term (current) use of oral hypoglycemic drugs; Z79.02 Long term (current) use of antithrombotics/antiplatelets; I11.0 Hypertensive heart disease with heart failure; I50.30 Unspecified diastolic (congestive) heart failure; I25.10 Atherosclerotic heart disease of native coronary artery without angina pectoris; M79.7 Fibromyalgia; E78.5 Hyperlipidemia, unspecified; R91.8 Other nonspecific abnormal finding of lung field; Z87.891 Personal history of nicotine dependence; Z80.9 Family history of malignant neoplasm, unspecified
CPT/HCPCS: 36416; 45378; 82962; 93005; J2371; J2704; J7030